=== PATIENT | female | born 1930 | race Caucasian/White ===

== ENCOUNTER 2017-05-09 14:27 | Outpatient (CLI) | payer MEDICARE | END 2017-05-09 14:28 | disposition home or self-care (01) | LOC: BICRAD 14:27 | PROVIDERS: ATTEND Internal Medicine | DX: R91.8 Other nonspecific abnormal finding of lung field (principal); I70.90 Unspecified atherosclerosis | CPT/HCPCS: 71046 ==

== ENCOUNTER 2017-08-14 10:51 | Outpatient (CLI) | payer MEDICARE ==
--- NOTE | 2017-08-14 13:45 | CT ---
CT ABDOMEN AND PELVIS WITH ORAL AND IV CONTRAST: HISTORY: Abdominal pain and bloating. Black stools. Diarrhea. FINDINGS: A gallstone is present. The liver, pancreas, spleen, adrenal glands, and right kidney are normal. A punctate calculus is seen in the left kidney. A tiny low density lesion in the inferior pole of the left kidney is too small to characterize but likely represents a cyst. No free air, free fluid, or lymphadenopathy is seen in the abdomen or pelvis. There are vascular calcifications without evidence of aneurysmal dilatation of the abdominal aorta. There are degenerative changes in the spine. There are postop changes of bilateral hip arthroplastie s, resulting in artifact and subsequent reduction in the sensitivity of the exam for evaluation of pe lvic contents. A uterus is present. The small bowel loops are not abnormally dilated. There is fec al material in the colon and rectum. There is an old fracture of the left inferior pubic ramus. IMPRESSION: 1. Punctate, nonobstructing left renal calculus. 2. Cholelithiasis. 3. Constipation. POS: [facility]
--- NOTE | 2017-08-14 14:13 | CT ---
HIGH RESOLUTION CT SCAN CHEST WITHOUT CONTRAST (SUPINE AND PRONE POSITIONS): HISTORY: Persistent cough. COPD. FINDINGS: There is mild scarring in apices and lung bases. There is elevation of the left hemidiaphragm. No b ullous emphysema, bronchiectasis, or fibrosis is seen. No pleural or pericardial effusions are ident ified. There are vascular calcifications without evidence of aneurysm dilatation of the abdominal ao rta. There are degenerative changes in the spine. Upper abdominal tomograms demonstrate a calcified gallstone. IMPRESSION: Mild scarring in the apices and lung bases. POS: [facility]
== END 2017-08-14 10:52 | disposition home or self-care (01) ==
LOC: SCSCT 10:51
PROVIDERS: ATTEND Internal Medicine
DX: J44.9 Chronic obstructive pulmonary disease, unspecified (principal); R05 Cough; Z87.891 Personal history of nicotine dependence; R10.9 Unspecified abdominal pain; R14.0 Abdominal distension (gaseous); R06.00 Dyspnea, unspecified; K92.1 Melena; K62.1 Rectal polyp; J98.4 Other disorders of lung; N20.0 Calculus of kidney; K80.20 Calculus of gallbladder without cholecystitis without obstruction; K59.00 Constipation, unspecified
CPT/HCPCS: 71250; 74177

== ENCOUNTER 2018-05-14 13:20 | Outpatient (CLI) | payer MEDICARE ==
[2018-05-14] MEDS ORDERED: Sodium Chloride 0.9% 15 ML NEB ONE (15:40)
--- NOTE | 2018-05-14 23:29 | HP ---
HISTORY OF PRESENT ILLNESS: Ms. Haydee Leroy is a very pleasant 88-year-old who presents to the [facility]ound Center for evaluation of 2 ulcerations of the right lateral ankle. The patient states that she hit her right lateral ankle against a box. She states that she appeared to have scraped her right lateral ankle and washed her ankle off. She states that she applied bacitracin to the injured areas. She states that her right lateral ankle became "worse and worse." She states that she was subsequently seen by Dr. Vaughan and placed on Keflex. At this time, the patient was also referred to the Wound Center for further evaluation and treatment. PAST MEDICAL HISTORY: 1. Peripheral vascular disease. 2. Obstructive sleep apnea. 3. History of MRSA. PAST SURGICAL HISTORY: 1. Cholecystectomy. 2. Hysterectomy. 3. Appendectomy. 4. Bilateral total knee arthroplasty. 5. Bilateral total hip arthroplasty with right hip arthroplasty revision. 6. Foot surgery. 7. Colon resection. 8. Closed reduction of dislocated right total hip arthroplasty. MEDICATIONS: The patient does not have a list of her medications with her today. She states that her medications, however, include oxybutynin, multivitamin, and eye vitamins. ALLERGIES: NEOSPORIN. SOCIAL HISTORY: Social history significant for tobacco use of up to one pack of cigarettes per day for 40 years. The patient states that she stopped smoking on 11/26/1986. Social history is negative for EtOH use. FAMILY HISTORY: Family history is significant for coronary artery disease. The patient states that her father was diagnosed with coronary artery disease. Family history is negative for diabetes mellitus. PHYSICAL EXAMINATION: VITAL SIGNS: Temperature 97.8, pulse 67, respirations 18, blood pressure 135/64. GENERAL: An 88-year-old female, sitting on chair in examination room, in no acute distress. HEENT: Normocephalic and atraumatic. NECK: No nuchal rigidity. CHEST: Clear to auscultation. CV: Regular rate and rhythm. ABDOMEN: Soft. EXTREMITIES: Two ulcerations of the right lateral ankle are present which measure approximately 1.5 x 0.8 cm and 0.8 x 1.4 cm. No granulation tissue is visible within the margins of either wound. No purulent drainage is associated with either wound. No maceration of the skin of either wound is present. Erythema of the skin surrounding both wounds is present and appears to be secondary to stasis changes as opposed to an infectious process. A dorsalis pedis pulse is palpable on the right. Mild to moderate edema of the right foot and lower leg is present on exam today. NEURO: Grossly nonfocal. ASSESSMENT AND PLAN: 1. Chronic venous hypertension with ulcers and inflammation. Medihoney, 4x4s, an ABD, Webril, and 3M Coban 2 Layer Compression System will be applied to the ulcerations today. Orders will be transmitted to Home Health for dressing changes 1 to 2 times a week of Medihoney, 4x4s, an ABD, Webril, and the 3M Coban 2 Layer Compression System. The patient is to continue Keflex as per Dr. Vaughan. I will see Ms. Leroy again in 2 weeks. The patient understands and is in agreement with the preceding treatment plan. 2. Peripheral vascular disease. 3. Obstructive sleep apnea. 4. History of methicillin-resistant Staphylococcus aureus. Job ID: [id number]
== END 2018-05-14 13:21 | disposition home or self-care (01) ==
LOC: WCC 13:20
PROVIDERS: ATTEND Family Medicine
DX: I87.331 Chronic venous hypertension (idiopathic) with ulcer and inflammation of right lower extremity (principal); L97.319 Non-pressure chronic ulcer of right ankle with unspecified severity; I73.9 Peripheral vascular disease, unspecified; G47.33 Obstructive sleep apnea (adult) (pediatric); Z86.14 Personal history of Methicillin resistant Staphylococcus aureus infection
CPT/HCPCS: 97139; 97602; G0463; 99203; A4218

== ENCOUNTER 2018-06-02 13:51 | Outpatient (CLI) | payer MEDICARE ==
[~2018-06-02 13:51] MED LIST: Sodium Chloride 0.9% 15 ML NEB ONE
--- NOTE | 2018-06-02 14:57 | PRG ---
DATE OF SERVICE: 06/02/2018 HISTORY: Ms. Haydee Leroy is a very pleasant 88-year-old, who presents to the Wound Center for evaluation of 2 ulcerations of the right lateral ankle. The patient previously stated that she hit her right lateral ankle against a box. She stated that she appeared to have scraped her right lateral ankle and washed her ankle off. She stated that she applied bacitracin to the injured areas. She stated that her right lateral ankle became "worse and worse." She stated that she was subsequently seen by Dr. Vaughan and placed on Keflex. At this time, the patient was also referred to the Wound Center for further evaluation and treatment. PHYSICAL EXAMINATION: VITAL SIGNS: Temperature 97.5, pulse 54, respirations 20, blood pressure 124/60. EXTREMITIES: Two ulcerations of the right lateral ankle are present, which measures approximately 0.8 x 0.5 cm and 1.0 x 0.5 cm. The dimensions of these wounds at the time of the patient's last visit were approximately 1.5 x 0.8 cm and 0.8 x 1.4 cm respectively. No granulation tissue is visible within the margins of either wound. A purulent drainage is associated with either wound. No maceration of the skin of the periwound of either wound is noted. Less erythema of the skin surrounding both wounds is present than at the time of the patient's last visit. A dorsalis pedis pulse is palpable on the right. No significant edema of the right foot or lower leg is present on exam today. ASSESSMENT AND PLAN: 1. Chronic venous hypertension with ulcers and inflammation. Medihoney, 4x4s, an ABD pad, Webril and the 3M Coban 2 Layer Compression System will be applied to the ulcerations today. Orders will be transmitted to Home Health for dressing changes 1 to 2 times per week of Medihoney, 4x4s, an ABD, Webril, and the 3M Coban 2 Layer Compression System. I will see Ms. Leroy again in 2 weeks. 2. Peripheral vascular disease. 3. Obstructive sleep apnea. 4. History of methicillin-resistant Staphylococcus aureus. Job ID: [id number]
== END 2018-06-02 13:52 | disposition home or self-care (01) ==
LOC: WCC 13:51
PROVIDERS: ATTEND Family Medicine
DX: I87.331 Chronic venous hypertension (idiopathic) with ulcer and inflammation of right lower extremity (principal); L97.319 Non-pressure chronic ulcer of right ankle with unspecified severity; I73.9 Peripheral vascular disease, unspecified; G47.33 Obstructive sleep apnea (adult) (pediatric); Z86.14 Personal history of Methicillin resistant Staphylococcus aureus infection
CPT/HCPCS: A4218

== ENCOUNTER 2018-06-16 15:51 | Outpatient (CLI) | payer MEDICARE ==
--- NOTE | 2018-06-16 14:07 | PRG ---
DATE OF SERVICE: 06/16/2018 HISTORY: Ms. Haydee Leroy is a very pleasant 88-year-old, who presents to the Wound Center for evaluation of two ulcerations at the right lateral ankle. The patient previously stated that she hit her right lateral ankle against a box. She stated that she appeared to have scraped her right lateral ankle and washed her ankle off. She stated that she applied bacitracin to the injured areas. She stated that her right lateral ankle became "worse and worse." She stated that she was subsequently seen by Dr. Vaughan and placed on Keflex. At this time, the patient was also referred to the Wound Center for further evaluation and treatment. PHYSICAL EXAMINATION: VITAL SIGNS: Temperature 98.0, pulse 58, respirations 16, blood pressure 131/72. EXTREMITIES: Two ulcerations of the right lateral ankle are present, which measure approximately 0.8 x 0.4 cm and 0.8 x 0.5 cm. The dimensions of these wounds at the time of the patient's last visit were approximately 0.8 x 0.5 cm and 1.0 x 0.5 cm respectively. No granulation tissue is visible within the margins of either wound. No purulent drainage is associated with either wound. No maceration of the skin of the periwound of either wound is noted. No significant edema of the right foot or lower leg is present on exam today. ASSESSMENT AND PLAN: 1. Chronic venous hypertension with ulcers and inflammation. Silverlon and the 3M Coban 2 Layer Compression System will be applied to the ulcerations today. Webril will also be utilized at the time of dressing changes as needed. Orders will be transmitted to Home Health for the preceding dressing changes 1 to 2 times per week. I will see Ms. Leroy again in 3 weeks. 2. Peripheral vascular disease. 3. Obstructive sleep apnea. 4. History of methicillin-resistant Staphylococcus aureus. Job ID: [id number]
[~2018-06-16 15:51] MED LIST changes: +Lidocaine 2% 11 ML SYR ONE
== END 2018-06-16 15:52 | disposition home or self-care (01) ==
LOC: WCC 15:51
PROVIDERS: ATTEND Family Medicine
DX: I87.331 Chronic venous hypertension (idiopathic) with ulcer and inflammation of right lower extremity (principal); L97.319 Non-pressure chronic ulcer of right ankle with unspecified severity; I73.9 Peripheral vascular disease, unspecified; G47.33 Obstructive sleep apnea (adult) (pediatric); Z86.14 Personal history of Methicillin resistant Staphylococcus aureus infection
CPT/HCPCS: A4218

== ENCOUNTER 2018-07-07 13:09 | Outpatient (CLI) | payer MEDICARE ==
--- NOTE | 2018-07-07 14:02 | PRG ---
DATE OF SERVICE: 07/07/2018 HISTORY: Ms. Haydee Leroy is a very pleasant 88-year-old, who presents to the Wound Center for evaluation of 2 ulcerations of the right lateral ankle. Previously, the patient stated that she hit her right lateral ankle against a box. She stated that she appeared to have scraped her right lateral ankle and washed her ankle off. She stated that she applied bacitracin to the injured areas. She stated that her right lateral ankle became "worse and worse." She stated that she was subsequently seen by Dr. Vaughan and placed on Keflex. At this time, the patient was also referred to the Wound Center for further evaluation and treatment. PHYSICAL EXAMINATION: VITAL SIGNS: Temperature 98.1, pulse 81, respirations 17, and blood pressure 140/66. EXTREMITIES: Two ulcerations of the right lateral ankle are present, which measure approximately 1.2 x 0.3 cm and 1.6 x 0.8 cm. Granulation tissue is now visible within the margins of both wounds. No purulent drainage is associated with either wound. No maceration of the skin of the periwound of either wound is noted. No significant edema of the right foot or lower leg is present on exam today. ASSESSMENT AND PLAN: 1. Chronic venous hypertension with ulcers and inflammation. Silverlon and the 3M Coban 2 Layer Compression System will be applied to the ulcerations today. Webril will also be utilized at the time of dressing changes as needed. Orders will be transmitted to Home Health for the preceding dressing changes 1 to 2 times per week. I will see Ms. Leroy again in 2 weeks. 2. Peripheral vascular disease. 3. Obstructive sleep apnea. 4. History of methicillin-resistant Staphylococcus aureus. Job ID: [id number]
[2018-07-07] MEDS ORDERED: Sodium Chloride 0.9% 15 ML NEB ONE (18:00)
[2018-07-07] MEDS ORDERED: Lidocaine 2% 11 ML SYR ONE (18:00)
== END 2018-07-07 13:10 | disposition home or self-care (01) ==
LOC: WCC 13:09
PROVIDERS: ATTEND Family Medicine
DX: I87.331 Chronic venous hypertension (idiopathic) with ulcer and inflammation of right lower extremity (principal); L97.319 Non-pressure chronic ulcer of right ankle with unspecified severity; I73.9 Peripheral vascular disease, unspecified; G47.33 Obstructive sleep apnea (adult) (pediatric); Z86.14 Personal history of Methicillin resistant Staphylococcus aureus infection
CPT/HCPCS: 29581; A4218

== ENCOUNTER 2018-07-23 13:45 | Outpatient (CLI) | payer MEDICARE ==
--- NOTE | 2018-07-23 14:21 | PRG ---
DATE OF SERVICE: 07/23/2018 HISTORY: Ms. Haydee Leroy is a very pleasant 88-year-old, who presents to the Wound Center for evaluation of 2 ulcerations of the right lateral ankle. Previously, the patient stated that she hit her right lateral ankle against a box. She stated that she appeared to have scraped her right lateral ankle and washed her ankle off. She stated that she applied bacitracin to the injured areas. She stated that her right lateral ankle became "worse and worse." She stated that she was subsequently seen by Dr. Vaughan and placed on Keflex. At this time, the patient was also referred to the Wound Center for further evaluation and treatment. PHYSICAL EXAMINATION: VITAL SIGNS: Temperature 97.5, pulse 77, blood pressure 132/65. EXTREMITIES: Two ulcerations of the right lateral ankle are present, which measure approximately 1.1 x 0.4 cm and 1.7 x 0.6 cm. Granulation tissue is visible within the margins of each wound. No purulent drainage is associated with either wound. No erythema of the skin surrounding either wound is present. No maceration of the skin of the periwound of either wound is noted. A dorsalis pedis pulse is easily palpable on the right. No significant edema of the right foot or lower leg is present on exam today. After copious irrigation of both wound beds with normal saline, MatriStem sheet was applied to the wound beds of both ulcerations, followed by Adaptic, an ABD and a 3M Coban 2 Layer Compression System. The MatriStem sheet was secured with the use of Steri-Strips and Mastisol. ASSESSMENT AND PLAN: 1. Chronic venous hypertension with ulcers and inflammation. Orders will be transmitted to Home Health for a dressing change of Adaptic, followed by an ABD and 3M Coban 2 Layer Compression System in 1 week. I will see Ms. Leroy again in 2 weeks. 2. Peripheral vascular disease. 3. Obstructive sleep apnea. 4. History of methicillin-resistant Staphylococcus aureus. Job ID: [id number]
[2018-07-23] MEDS ORDERED: Sodium Chloride 0.9% 15 ML NEB ONE (18:00)
== END 2018-07-23 13:46 | disposition home or self-care (01) ==
LOC: WCC 13:45
PROVIDERS: ATTEND Family Medicine
DX: I87.331 Chronic venous hypertension (idiopathic) with ulcer and inflammation of right lower extremity (principal); L97.319 Non-pressure chronic ulcer of right ankle with unspecified severity; I73.9 Peripheral vascular disease, unspecified; G47.33 Obstructive sleep apnea (adult) (pediatric)
CPT/HCPCS: A4218; Q4166-KX-JC

== ENCOUNTER 2018-08-05 19:51 | Observation (INO) | payer MEDICARE ==
[~2018-08-05 19:51] MED LIST changes: -Lidocaine 2% 11 ML SYR ONE; +Ondansetron PF 4 MG/2 ML Vial ONE; +PROPOFOL 200 MG/20 ML VIAL ONE; -Sodium Chloride 0.9% 15 ML NEB ONE; +Succinylcholine Chloride 20 MG/ML 10 ml SYRINGE FS ONE
[2018-08-05] MEDS ORDERED: Morphine 4 MG/ML VIAL ONE (20:30)
[2018-08-05] MEDS ORDERED: Ondansetron PF 4 MG/2 ML Vial ONE (20:38)
--- NOTE | 2018-08-05 21:07 | RAD ---
Exam: Right hip 2 views: HISTORY: Dislocation right total hip prosthesis. Findings and impression: There is cranial and posterior dislocation of the femoral head component from the acetabular componen t of the right hip prosthesis. No evidence for periprosthetic fracture.
[2018-08-05] MEDS ORDERED: traMADol HCl 50 MG TAB PO PRN ×2 (22:07)
[2018-08-05] MEDS ORDERED: Ondansetron PF 4 MG/2 ML Vial IV PRN (22:07)
[2018-08-05] MEDS ORDERED: Ketamine 50 MG/ML (10ML VIAL) ONE (22:47)
--- NOTE | 2018-08-05 23:28 | RAD ---
RIGHT HIP ONE VIEW: 08/05/18 HISTORY: Post reduction of previously noted right total hip prosthesis dislocation. COMPARISON: Earlier 08/05/18 study. Based on this single AP radiograph, the femoral head has been repositioned correctly with the acetabu lar portion of the prosthesis. IMPRESSION: Reduction of the previously noted hip prosthesis dislocation. No periprosthetic fracture. POS: [facility]
[2018-08-06 01:01] VITALS: BMI 28.7
[2018-08-06 08:47] LABS: #Eosinphils 0.8 thou/uL (0.0-0.7); #Lymphocytes 1.6 thou/uL (1.20-3.40); #Monocytes 0.9 thou/uL (0.11-0.59); #Neutrophils 5.5 thou/uL (1.40-6.50); %Basophils 0.2 % (0.0-1.0); %Eosinophils 8.9 % (0.0-10.0); %Lymphocytes 18.8 % (21.0-51.0); %Monocytes 9.9 % (0.0-10.0); %Neutrophils 62.2 % (42.0-75.0); Hemoglobin 12.9 g/dL (12.0-16.0); Mean Corpuscular HGB CONC 32.4 g/dL (32.0-36.0); Mean Corpuscular Hemoglobin 30.9 pg (27.0-31.0); Mean Corpuscular Volume 95.2 fL (78.0-98.0); Mean Platelet Volume 8.4 fL (7.4-10.4); Platelet Count 212 thou/uL (130-400); RBC Distribution Width 12.1 % (11.5-14.5); Red Blood Cell (RBC) Count 4.19 mill/uL (4.20-5.40); White Blood Cell (WBC) Count 8.8 thou/uL (4.8-10.8)
[2018-08-06 08:57] LABS: ALT (SGPT) 10 U/L (8-55); AST (SGOT) 22 U/L (5-34); Albumin 3.2 g/dL (3.4-4.8); Alkaline Phosphatase 99 U/L (40-150); Anion Gap 7 mmol/L (10-20); BUN (Urea Nitrogen) 13 mg/dL (9.8-20.1); Bilirubin, Total 0.5 mg/dL (0.2-1.2); Calc. Creatinine Clearance 58 mL/min (70-130); Carbon Dioxide 30 mmol/L (23-31); Chloride 109 mmol/L (98-107); Estimated GFR-MDRD 73; Globulin 2.5 g/dL (2.4-3.5); Glucose 90 mg/dL (83-110); Protein, Total 5.7 g/dL (6.0-8.3); Sodium 142 mmol/L (136-145)
[2018-08-06] MEDS ORDERED: Enoxaparin Sodium 40 MG/0.4 ML SYRINGE SC SCH (09:00)
[2018-08-06] MEDS ORDERED: Aspirin 81 mg Enteric Coated Tablet PO SCH (09:00)
--- NOTE | 2018-08-06 09:07 | CON ---
DATE OF CONSULTATION: 08/06/2018 CONSULTING PHYSICIAN: Osvaldo Narayanan MD REASON FOR CONSULTATION: Medical management. HISTORY OF PRESENT ILLNESS: An 88-year-old female with past medical history significant for bilateral hip replacement associated with prior right hip dislocation, who was brought into the hospital after acute onset of right hip pain. The patient reportedly bent over and felt the right hip popup and suddenly developed pain. Evaluation in the emergency room showed right hip dislocation. Orthopedic consult was obtained and the patient was taken to OR for closed reduction under anesthesia. The patient is feeling better and reports that pain is better controlled. Denied chest pain, nausea, vomiting, palpitations, shortness of breath, dysuria, hematuria, fever or chills, cough, or worsening leg swelling. She reported right ankle wound, for which she goes to the Wound Care for management. PAST MEDICAL HISTORY: Significant for, 1. Obstructive sleep apnea, on CPAP. 2. Colon tumor, status post resection. 3. Hyperlipidemia. 4. Coronary artery disease. 5. Heart murmur. 6. Anxiety and depression. PAST SURGICAL HISTORY: 1. Appendectomy. 2. Partial colon resection. 3. Tonsillectomy. 4. Left eye surgery. 5. Bilateral knee and hip replacement. 6. Prior right hip closed reduction. SOCIAL HISTORY: The patient lives alone. She is a former smoker. She quit about 10 years ago. FAMILY HISTORY: Noncontributory. ALLERGIES: BACITRACIN, NEOMYCIN, AND POLYMYXIN B. HOME MEDICATIONS: 1. Aspirin 81 mg p.o. daily. 2. Lipitor 40 mg p.o. daily at bedtime. 3. Clonazepam 1 mg p.o. daily at bedtime. 4. Melatonin 1 mg p.o. daily at bedtime. 5. Oxybutynin 5 mg p.o. daily. 6. PEG [id number]-Gpmujjyj eye drop 1 to 2 drops each eye q.i.d. 7. Sertraline 200 mg p.o. daily. REVIEW OF SYSTEMS: Twelve-point review of system performed was negative, other than pertinent positives and negatives included in the history of present illness. PHYSICAL EXAMINATION: VITAL SIGNS: Temperature 98.6, pulse 61, respiratory rate 20, SpO2 of 97 on 2 L nasal cannula, and blood pressure is 100/49. GENERAL: Healthy-looking elderly female, in no obvious distress. Afebrile. Anicteric. Acyanotic. HEENT: Normocephalic, atraumatic. Oral mucosa is moist. Pupils are reacting to light. NECK: Supple, nontender with full range of motion. No masses noticed. CARDIOVASCULAR: Regular rhythm and rate with normal heart sounds 1 and 2. 3/6 systolic murmur noted. RESPIRATORY: Good air entry bilaterally with no obvious crackle or rhonchi or use of accessory muscles. GASTROINTESTINAL: Full, soft, nondistended with normal bowel sounds. Right upper and lower quadrant tenderness noted. Bowel sound is normoactive. EXTREMITIES: Right ankle covered with dressing. Abductor pillow noticed between both legs. No other abnormality noted. No edema or erythema. SKIN: Patchy erythema and some papules noticed on the right side of trunk extending from below the breast down to the inguinal area as well as from mid back down to the flank on the right side. This area is also tender. There is no obvious vesicle noticed. NEUROLOGIC: Conscious and alert and oriented x3 with appropriate mental status. Cranial nerves II through XII are intact. The patient moves all extremities, but lower extremities are restrained. DIAGNOSTIC DATA: No labs are available yet. Chest x-ray of the right hip performed on August 05 showed cranial and posterior dislocation of the femoral head component from the acetabular component of the right hip prosthesis with no evidence of periprosthetic fracture. ASSESSMENT: 1. Dislocation of right prosthetic hip. 2. Right-sided trunk skin eruption: Concerning for shingles, given tenderness. 3. Right abdominal tenderness, right and lower quadrant: Etiology is unclear. The patient denied falling on that side. 4. History of hyperlipidemia, on Lipitor. 5. History of anxiety and depression, on Klonopin. 6. History of coronary artery disease: No chest pain. Asymptomatic at this time. PLAN: 1. We will get CBC and BMP. If liver enzymes are abnormal, we will also get right upper quadrant ultrasound. 2. We will monitor skin rash closely. 3. Analgesic as per Orthopedics. 4. DVT prophylaxis with Lovenox. 5. Diet as tolerated. 6. Activity and weightbearing as per Orthopedics. Many thanks for involving us in the care of this patient. We will follow along with you. Job ID: [id number]
[2018-08-06 12:28] VITALS: BP 108/59; TEMP 97.9
--- NOTE | 2018-08-07 15:28 | DIS ---
DATE OF ADMISSION: 08/05/2018 DATE OF DISCHARGE: 08/06/2018 PROCEDURE: The patient was brought to the OR, conscious sedation hip reduction. No complications after surgery. She was put in an abduction pillow upstairs and she did well. No other hospital complications. DISCHARGE CONDITION: Good/stable. DISPOSITION: Home. FOLLOWUP: Follow up would be in 2 to 4 weeks. We have asked her to follow up with Dr. Markham as this is her second hip dislocation in a few years for possible revision. She understands. DISCHARGE MEDICATIONS: Sent home with instructions. Job ID: [id number]
--- NOTE | 2018-08-07 15:28 | OP ---
DATE OF PROCEDURE: 08/05/2018 PREOPERATIVE DIAGNOSES: Right total hip arthroplasty, posterior dislocation, recurrent. POSTOPERATIVE DIAGNOSES: Right total hip arthroplasty, posterior dislocation, recurrent. PROCEDURE PERFORMED: Closed reduction of right total hip arthroplasty posterior dislocation. ANESTHESIA: General. BLOOD LOSS: Zero. COMPLICATIONS: None. DRAINS: None. SPECIMEN: None. IMPLANTS: None. OUTCOME: Concentric reduction of right total hip arthroplasty. INDICATIONS: The patient is an 88-year-old lady, who has a extensive past history with respect to her right hip including total hip arthroplasty followed by revision for infection and now a third posterior dislocation. She reports that earlier on the evening of admission, she bent over forward in a position that she knows places her risk and with this maneuver sustained a dislocation of the hip. The patient has had problems with conscious sedation in the past and as such, Orthopedic consultation requested for anticipated trip to the operating room to obtain a reduction. Informed consent has been obtained, I believe all questions answered. DESCRIPTION OF PROCEDURE: The patient was brought to the operating room and a time-out performed followed by induction of general anesthesia. Next, the hip was brought up to 90 degrees of flexion and then with traction along the line of the femur, the hip could eventually be reduced. This was a somewhat difficult reduction; however, once it was reduced. Leg lengths were normalized and the hip was found to be relatively stable with full extension and flexion up beyond 90 degrees. Once reduced, the leg was placed in an abduction pillow and the patient was brought to the recovery room in stable condition. There were no complications. She tolerated the procedure well. X-ray in the operating room confirmed a concentric reduction. Job ID: [id number]
== END 2018-08-06 13:16 | disposition home or self-care (01) ==
LOC: ERS 19:51 → SDC/OP 23:19 → SURG A 23:20
PROVIDERS: ADMIT Orthopaedic Surgery; ATTEND Orthopaedic Surgery
PROC: 0SW9XJZ Revision of Synthetic Substitute in Right Hip Joint, External Approach (ICD-10-PCS; principal; 2018-08-05)
DX: T84.020A Dislocation of internal right hip prosthesis, initial encounter (principal); G47.33 Obstructive sleep apnea (adult) (pediatric); E78.5 Hyperlipidemia, unspecified; I25.10 Atherosclerotic heart disease of native coronary artery without angina pectoris; F41.8 Other specified anxiety disorders; F32.9 Major depressive disorder, single episode, unspecified; R01.1 Cardiac murmur, unspecified; Z79.82 Long term (current) use of aspirin; Z79.899 Other long term (current) drug therapy; Z87.891 Personal history of nicotine dependence; Z88.1 Allergy status to other antibiotic agents; Z88.8 Allergy status to other drugs, medicaments and biological substances; Z99.89 Dependence on other enabling machines and devices
CPT/HCPCS: 27266; 73501; 73502; 80053; 85025; 96372; 96374; 96375; 97116; 97139 ×2; 99285; G0378 ×2; 36415; J1650; J2270; J2405; J2704

== ENCOUNTER 2018-08-11 10:41 | Outpatient (CLI) | payer MEDICARE ==
[2018-08-11] MEDS ORDERED: Sodium Chloride 0.9% 15 ML NEB ONE (14:57)
[2018-08-11] MEDS ORDERED: Lidocaine 2% Jelly 5 ML TUBE ONE (14:57)
--- NOTE | 2018-08-11 17:10 | PRG ---
DATE OF SERVICE: 08/11/2018 HISTORY: Ms. Haydee Leroy is a very pleasant 88-year-old, who presents to the Wound Center for evaluation of 2 ulcerations of the right lateral ankle. Since the patient's last visit, Ms. Leroy underwent closed reduction of a right total hip arthroplasty posterior dislocation on 08/05/[address] Narayanan. At the time of the patient's last visit to the Wound Center on 07/23/2018, MatriStem sheet was applied to the wound bed of each ulceration of the right lateral ankle. The patient reports an allergic reaction to the MatriStem sheet. The patient presents today with excoriations of her right and left upper extremities and right lower extremity. The patient has no other complaints today. She denies any fever or chills. PHYSICAL EXAMINATION: VITAL SIGNS: Temperature 97.9, pulse 59, respirations 15, and blood pressure 150/68. EXTREMITIES: Two ulcerations of the right lateral ankle are present, which measure approximately 0.8 x 0.2 cm and 0.8 x 1.6 cm. Granulation tissue is present within the margins of each wound. No purulent drainage is associated with either wound. No erythema of the skin surrounding either wound is present. No maceration of the skin of the periwound of either wound is noted. No significant edema of the right foot or lower leg is present on exam today. The ulcerations have markedly improved in their appearance since the patient's last visit. ASSESSMENT AND PLAN: 1. Chronic venous hypertension with ulcers and inflammation. Orders will be transmitted to Home Health for dressing changes of Medihoney and Mepilex border 3 times per week after cleansing and irrigation. The patient understands and is in agreement with the preceding treatment plan. I will see Ms. Leroy again in 2 weeks. 2. Peripheral vascular disease. 3. Obstructive sleep apnea. 4. History of methicillin-resistant Staphylococcus aureus. Job ID: [id number]
== END 2018-08-11 10:42 | disposition home or self-care (01) ==
LOC: WCC 10:41
PROVIDERS: ATTEND Family Medicine
DX: I87.331 Chronic venous hypertension (idiopathic) with ulcer and inflammation of right lower extremity (principal); L97.319 Non-pressure chronic ulcer of right ankle with unspecified severity; I73.9 Peripheral vascular disease, unspecified; G47.33 Obstructive sleep apnea (adult) (pediatric); Z86.14 Personal history of Methicillin resistant Staphylococcus aureus infection

== ENCOUNTER 2018-08-25 11:40 | Inpatient (IN) | payer MEDICARE ==
--- NOTE | 2018-08-25 12:22 | RAD ---
Right hip 2 views : 08/25/2018 COMPARISON: 08/05/2018 HISTORY: Pain, evaluate for dislocation FINDINGS: There is a total hip arthroplasty on the right. The femoral component is dislocated proxima lly and anteriorly with respect to the acetabular component. Post reduction imaging advised. IMPRESSION: Dislocated right hip arthroplasty.
[2018-08-25] MEDS ORDERED: Ondansetron PF 4 MG/2 ML Vial ONE (12:41)
[2018-08-25] MEDS ORDERED: Morphine 4 MG/ML VIAL ONE (12:41)
--- NOTE | 2018-08-25 13:35 | CON ---
DATE OF CONSULTATION: 08/25/2018 CONSULTING PHYSICIAN: Neil Cross MD REASON FOR CONSULTATION: Right hip dislocation. HISTORY OF PRESENT ILLNESS: This is an 88-year-old female, who lives independently, presented to our emergency department today with complaints of a right hip dislocation. The patient states that she was bending over when she felt the right hip pop and dislocate. She reports the last time she dislocated it was 3 weeks ago. According to our medical records, the patient has had 3 previous hip dislocations to this hip since last fall, last one being on August 05, 2018. These have required sedation in the operating room in order to reduce the hip secondary to the patient stating that she does not do well with conscious sedation and respiratory issues. Currently at bedside, the patient states that the original hip surgery was done many years ago in [place]. 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 It has been dislocating more frequently and easily in the last couple of months. She states that she is fearful to go home. It is popping out very easily at this time. She denies any numbness or tingling. She denies any other injuries. PAST MEDICAL HISTORY: Significant for coronary artery disease and hyperlipidemia. PAST SURGICAL HISTORY: Appendectomy, previous bilateral total knee arthroplasty, bilateral total hip arthroplasty with revision of right hip arthroplasty, and previous foot surgery. She also has a history of colon tumor resection. ALLERGIES: NO KNOWN ALLERGIES. FAMILY HISTORY: Reviewed and noncontributory. SOCIAL HISTORY: The patient states that she lives at home alone. She is an ambulator. She denies any tobacco use or alcohol consumption. REVIEW OF SYSTEMS: A 10-point review of systems is positive for right hip pain. No numbness or tingling. Otherwise negative except for stated above. PHYSICAL EXAMINATION: VITAL SIGNS: Temperature 97.9, blood pressure 139/57, pulse is 61, respiratory rate of 18 and nonlabored. GENERAL: The patient is awake and alert. She is tearful on examination, but she is cooperative with exam today. She is lying supine on a stretcher in the ER. No family currently at bedside. HEENT: Head is normocephalic and atraumatic. NECK: Supple. Trachea midline. LUNGS: Breathing nonlabored. EXTREMITIES: The lower extremities were evaluated. The right leg is shortened and externally rotated. She is holding this in a position of comfort. She is able to wiggle her toes. Sensation intact distally. Capillary refill is 3 seconds. All other extremities are evaluated and no obvious injuries are noted. RADIOGRAPHIC DATA: Radiographic findings, which were reviewed with Dr. Cross as well as myself, show evidence of a previous right total hip arthroplasty. The femoral head is dislocated posteriorly. No acute fractures are visualized. IMPRESSION: Dislocated right total hip. PLAN: At this time, we have previously discussed a revision total hip with this patient. However, we do need to go ahead and relocate her hip at this time and then we will further discuss the details of revising her total hip. She is amenable to this. We will plan to go forward with this in the operating room given her previous history of respiratory issues associated with conscious sedation. We will plan for this today. Job ID: [id number]
[2018-08-25] MEDS ORDERED: PROPOFOL 200 MG/20 ML VIAL ONE (13:37)
[2018-08-25] MEDS ORDERED: Succinylcholine Chloride 20 MG/ML 10 ml SYRINGE FS ONE (13:37)
[2018-08-25] MEDS ORDERED: Ketamine 50 MG/ML (10ML VIAL) ONE (15:28)
[2018-08-25] MEDS ORDERED: HYDROcodone/Acetaminophen 5/325 mg Tablet PO PRN (17:19)
[2018-08-25] MEDS ORDERED: Ondansetron PF 4 MG/2 ML Vial IV PRN (17:19)
[2018-08-25] MEDS ORDERED: Fentanyl 100 MCG/2 ML VIAL SLOW IVP PRN (17:19)
[2018-08-25] MEDS ORDERED: traMADol HCl 50 MG TAB PO PRN (17:19)
[2018-08-25] MEDS ORDERED: Ondansetron HCl/PF 4 MG/2 ML Vial IVP PRN (17:22)
[2018-08-25] MEDS ORDERED: Promethazine HCl 25 MG/ML VIAL SLOW IVP PRN (17:22)
[2018-08-25] MEDS ORDERED: Promethazine HCl 25 MG/ML VIAL IM PRN (17:22)
--- NOTE | 2018-08-25 17:25 | RAD ---
Right hip 2 views intraoperative fluoroscopy HISTORY: Hip dislocation. FINDINGS: Intraoperative fluoroscopy was provided for closed reduction is performed by Dr. Cross. Spot fluoroscopic images show the metallic femoral head prosthetic component to overlie the metallic acetabular component. Fluoroscopy time 11 seconds.
[2018-08-25] MEDS ORDERED: Communication Order-Pharmacy FS SCH (17:30)
[2018-08-25] MEDS: Atorvastatin Calcium 40 MG TAB PO SCH (20:54)
[2018-08-25] MEDS ORDERED: clonazePAM 1 MG TAB PO SCH (21:00)
--- NOTE | 2018-08-26 00:04 | OP ---
DATE OF PROCEDURE: 08/25/2018 OPERATION: Closed reduction of right total hip arthroplasty dislocation. PREOPERATIVE DIAGNOSIS: Dislocated right total hip arthroplasty. POSTOPERATIVE DIAGNOSIS: Dislocated right total hip arthroplasty. COMPLICATIONS: None. ESTIMATED BLOOD LOSS: None. SEWING MACHINE TESTER: Rigoberto Rivera PA-C. IMPLANTS: None. INDICATIONS: Ms. Leroy is an 88-year-old female, who has dislocated her hip multiple times. She has been indicated for closed reduction of the hip dislocation to relieve pain. She will need revision of her hip given that she has had multiple episodes of instability. She has elected to proceed with the operation and procedure. DESCRIPTION OF PROCEDURE: Ms. Leroy was identified in the preoperative holding area. She was carried to the operating room. She was positioned supine. General anesthesia was induced. A multidisciplinary time-out was performed. The right lower extremity was prepped and draped in sterile fashion. We began the procedure with given the patient's sedation. We then evaluated the hip with intraoperative x-ray. We were able to pull traction and reduce the hip dislocation using manual flexion and longitudinal traction. We confirmed this with x-ray. We took orthogonal views. The patient was awoken and taken to the recovery room in good condition without complication. Job ID: [id number]
[2018-08-26] MEDS: Ketorolac Tromethamine 30 MG/ML VIAL IVP SCH ×5 (00:26→19:42)
[2018-08-26 01:29] VITALS: BMI 26.8
[2018-08-26] MEDS: Sodium Chloride 0.9% 1,000 ML IV SCH ×3 (03:31→20:25)
[2018-08-26 08:41] LABS: #Eosinphils 0.3 thou/uL (0.0-0.7); #Lymphocytes 1.2 thou/uL (1.20-3.40); #Monocytes 0.8 thou/uL (0.11-0.59); #Neutrophils 6.3 thou/uL (1.40-6.50); %Basophils 0.3 % (0.0-1.0); %Eosinophils 3.4 % (0.0-10.0); %Lymphocytes 14.2 % (21.0-51.0); %Monocytes 8.9 % (0.0-10.0); %Neutrophils 73.2 % (42.0-75.0); Mean Corpuscular HGB CONC 31.6 g/dL (32.0-36.0); Mean Corpuscular Hemoglobin 30.5 pg (27.0-31.0); Mean Corpuscular Volume 96.6 fL (78.0-98.0); Platelet Count 234 thou/uL (130-400); RBC Distribution Width 12.7 % (11.5-14.5); Red Blood Cell (RBC) Count 3.91 mill/uL (4.20-5.40); White Blood Cell (WBC) Count 8.6 thou/uL (4.8-10.8)
[2018-08-26] MEDS: Oxybutynin 5 MG TAB PO SCH (08:51)
[2018-08-26 09:14] LABS: ALT (SGPT) 12 U/L (8-55); AST (SGOT) 21 U/L (5-34); Albumin 3.2 g/dL (3.4-4.8); Alkaline Phosphatase 104 U/L (40-150); Anion Gap 9 mmol/L (10-20); BUN (Urea Nitrogen) 19 mg/dL (9.8-20.1); Bilirubin, Total 0.6 mg/dL (0.2-1.2); Calc. Creatinine Clearance 56 mL/min (70-130); Calcium 9.1 mg/dL (7.8-10.44); Carbon Dioxide 27 mmol/L (23-31); Chloride 111 mmol/L (98-107); Estimated GFR-MDRD 70; Globulin 2.5 g/dL (2.4-3.5); Glucose 85 mg/dL (83-110); Potassium 4.3 mmol/L (3.5-5.1); Protein, Total 5.7 g/dL (6.0-8.3); Sodium 143 mmol/L (136-145)
[2018-08-26] MEDS ORDERED: Phenylephrine HCL 10 MG/ML VIAL ONE (12:36)
[2018-08-26] MEDS ORDERED: Lidocaine 2% Jelly 5 ML TUBE ONE (12:36)
[2018-08-26] MEDS ORDERED: Fentanyl 100 MCG/2 ML VIAL ONE ×4 (12:36→18:32)
[2018-08-26] MEDS ORDERED: Propofol 500 MG/50 ML VIAL ONE (12:44)
[2018-08-26] MEDS ORDERED: Bupivacaine 0.75% W/DEXTROSE 8.25% 2 ML AMP ONE (13:32)
[2018-08-26] MEDS ORDERED: Lidocaine 2% w/Epinephrine 1:200K 20 ML VIAL ONE (13:33)
[2018-08-26] MEDS ORDERED: Lidocaine 2% PF 5 ML VIAL ONE (13:34)
[2018-08-26] MEDS ORDERED: Vancomycin HCl 1 GM in Premix Bag 1 BAG IVPB SCH (14:00)
[2018-08-26] MEDS ORDERED: CEFAZOLIN 2 GM in Premix Bag 1 BAG IVPB SCH (14:00)
[2018-08-26] MEDS ORDERED: Ropivacaine 0.2% HCl/PF 20 ML ONE (15:09)
[2018-08-26] MEDS ORDERED: PHENYLEPHRINE-NS 100 MCG/ML 10 ML SYRINGE ONE ×2 (15:27→16:56)
[2018-08-26] MEDS ORDERED: ePHEDrine 50 MG/ML VIAL ONE (15:27)
[2018-08-26] MEDS ORDERED: PROPOFOL 200 MG/20 ML VIAL ONE (15:27)
[2018-08-26] MEDS ORDERED: Albumin 5% 0 ML ONE (15:34)
--- NOTE | 2018-08-26 16:05 | RAD ---
XR Pelvis AP STANDARD HISTORY: Intraoperative film for prosthesis placement. COMPARISON: None. FINDINGS: Bilateral hip prostheses are present on this examination. The distal end of the femoral com ponent of the right hip prosthesis is not visualized on this study. IMPRESSION: Bilateral hip prostheses.
[2018-08-26] MEDS ORDERED: Fentanyl 5 mcg/Bup 0.075% Cadd 100 ML EPIDURAL ONE (16:31)
--- NOTE | 2018-08-26 16:50 | RAD ---
Right hip 2 views HISTORY: Right hip placement. FINDINGS: Metallic hip prosthesis is in place. No perihardware lucency. Small amount of soft tissue g as remains. IMPRESSION: Right hip prosthesis is in good radiographic position.
[2018-08-26] MEDS ORDERED: Eucerin (Mineral Oil/Petrolatum,White) 30 gm Jar TOP PRN (19:23)
[2018-08-26] MEDS ORDERED: Naloxone HCl 0.4 mg/ml Vial IVP PRN ×2 (19:23)
[2018-08-26] MEDS ORDERED: diphenhydrAMINE 50 MG/ML VIAL IVP PRN (19:23)
[2018-08-26] MEDS ORDERED: Naloxone HCl 0.4 mg/ml Vial IV PRN (19:23)
[2018-08-26] MEDS ORDERED: Ondansetron PF 4 MG/2 ML Vial IVP PRN (19:23)
[2018-08-26] MEDS ORDERED: Communication Order-Pharmacy FS SCH (19:30)
[2018-08-26] MEDS: Atorvastatin Calcium 40 MG TAB PO SCH (20:21)
[2018-08-26] MEDS ORDERED: Albumin 25% 100 ML ONE (20:41)
[2018-08-26 21:14] LABS: Hemoglobin 9.4 g/dL (12.0-16.0)
[2018-08-26] MEDS ORDERED: Albumin 25% 25 GM/100 ML BOT IVPB ONE (21:30)
[2018-08-26] MEDS: CEFAZOLIN 2 GM in Premix Bag 1 BAG IVPB SCH (22:02)
--- NOTE | 2018-08-26 23:07 | OP ---
DATE OF PROCEDURE: 08/26/2018 PROCEDURE PERFORMED: Revision of right total hip arthroplasty. 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 COMPLICATIONS: None. ESTIMATED BLOOD LOSS: 350 mL. PLANTING MACHINE CREWMAN: Natalie Crowell PA-C. IMPLANTS: DonJoy size 60 mm multi-hole cup with 3 acetabular screws, 40 mm outer acetabular shell with a bipolar shell and a 28 mm Biomet metal head. INDICATIONS: Ms. Leroy is an 88-year-old female who has had recurrent dislocations of a total hip arthroplasty, which was placed approximately 10 years ago. She has had multiple problems with this. She also had a history of remote infection. She presented last night with the dislocation and was closed reduced. She has been indicated for revision of her total hip arthroplasty to prevent further dislocation and restore the ability to ambulate and mobilize without risk of instability. She elected to proceed. Risks to include infection, pain, scarring, bleeding, nerve or vascular injury, DVT, PE, medical complications such as ID, stroke, and others. DESCRIPTION OF PROCEDURE: Ms. Leroy is an 88-year-old female who was identified in the preoperative holding area. Her correct extremity was marked. She was carried to the operating room. She was positioned supine after epidural and spinal anesthetic was placed, she was then converted to the left lateral decubitus position. She was given intravenous antibiotics. At this point, we began with a posterior approach to the hip. We dissected down to the patient's previous scar. We dissected down to the underlying fascia which was opened. She had multiple layers of scar tissue and the layers were not well defined. We worked more deeply down to the bone level. We then performed a posterior approach to the proximal femur and identified the hip arthroplasty and implants. We removed significant scar tissue. There was also hematoma. We took a culture in the deep aspect of the fluid in the joint. At this point, we dislocated the hip and removed the femoral head. We impacted the femoral stem to be sure that it was not loose and it was well fixed. We then exposed the underlying acetabulum and removed the polyethylene component. We then removed two screws from the acetabular cup. Finally at this point, we used our acetabular cutting device to cut around the cup loosening the cup fully. This was then removed. At this point, we were able to gently ream the acetabulum. The patient had a 52 mm cup, she was reamed up to a size 58 mm, this gave a rim fit, her medial bone was very poor. We trialed with a 60 and this was acceptable. We impacted a 60 mm cup. We then placed 3 screws locking the cup in the acetabular bone. The screws had good purchase. Finally, we thoroughly irrigated with copious lavage. We then impacted our acetabular liner. We then trialed for bipolar component to form a tripolar construct. A +6 bipolar construct gave a good fit and stability. There was no evidence of instability with 90 degree flexion and full internal rotation. This was accepted. We removed the trial components and placed our final components, again we reduced the hip. We performed a final irrigation and then closure with #5 Ethibond suture followed by #2 Vicryl suture, followed by 2-0 Vicryl suture, and nylon sutures for the skin. A sterile dressing was applied. The patient was taken to the recovery room in good condition. Job ID: [id number]
[2018-08-27] MEDS: Sodium Chloride 0.9% 1,000 ML IV SCH ×4 (01:05→23:41)
[2018-08-27] MEDS: Vancomycin HCl 1 GM in Premix Bag 1 BAG IVPB SCH ×2 (01:08→13:45)
[2018-08-27] MEDS: Ketorolac Tromethamine 30 MG/ML VIAL IVP PRN ×3 (02:25→13:39)
[2018-08-27] MEDS ORDERED: Sodium Chloride 0.9% 500 ML IV SCH (04:15)
[2018-08-27] MEDS ORDERED: ePHEDrine/0.9% NaCl/PF SYRINGE 50 mg/10 ml ONE (04:21)
[2018-08-27] MEDS ORDERED: PHENYLEPHRINE-NS 100 MCG/ML 10 ML SYRINGE ONE (04:21)
[2018-08-27] MEDS ORDERED: Acetaminophen 1,000 MG in Premix Bag 1 BAG IVPB PRN (05:04)
[2018-08-27] MEDS ORDERED: DOPamine 400 MG/D5W 250 ML 250 ML IVPB SCH (05:30)
--- NOTE | 2018-08-27 06:26 | RAD ---
XR Chest 1 View Portable HISTORY: Shortness of breath COMPARISON: 12/26/2017 study. FINDINGS: Heart size within normal limits. There are atherosclerotic changes of the aorta. There is e levation to the right hemidiaphragm. There are chronic lung changes seen. IMPRESSION: Chronic lung change.
[2018-08-27] MEDS: CEFAZOLIN 2 GM in Premix Bag 1 BAG IVPB SCH ×2 (06:28→13:44)
--- NOTE | 2018-08-27 06:28 | PDOC.EVN ---
Event Note - Event Note Event Note: Called by residents for central line placement 2/2 hypotension. Patient s/p hip reduction and revision. Has not eaten or had anything to drink in some time. Hgb 12->9. No cough, congestion, fever, abd pain. Anesthesia has appeared to have been managing her overnight. No recently reported vasoactive agents. ON exam she is no longer hypotensive. She is very pleasant, conversant, and hard of hearing. RRR s M, no edema CTAB s w/r/r Abd NTTP Dressing on right hip POCUS: a limited exam to evaluate for vascular access sites was performed. Her RIJV is markedly collapsible, as well as her IVC. She has good contractile function of the heart on a limited subcostal view. Marked amount of gas on exam. Her CXR reviews no pneumonia. A/P: Hypotension, resolved -The patient has received 25 g albumin and 500 mL crystalloid. Due to her exam I would recommend another liter bolus and to monitor her closely. D/c the epidural pain pump, which could be contributing -CBC, UA Respiratory failure -was on the lower end of normal during admission, now on 3 L with good response -defer to the primary team concerning workup, including perioperative etiologies such as atelectasis, PE, ACS, CHF (which I feel less likely)
[2018-08-27] MEDS ORDERED: Lactated Ringer's 1,000 ML IV SCH (06:30)
[2018-08-27] MEDS ORDERED: traMADol HCl 50 MG TAB PO PRN ×3 (07:30→13:45)
[2018-08-27] MEDS ORDERED: Fentanyl 100 MCG/2 ML VIAL SLOW IVP PRN (07:30)
[2018-08-27] MEDS ORDERED: HYDROcodone/Acetaminophen 5/325 mg Tablet PO PRN (07:30)
[2018-08-27 07:38] LABS: #Eosinphils 0.4 thou/uL (0.0-0.7); #Monocytes 0.8 thou/uL (0.11-0.59); #Neutrophils 8.6 thou/uL (1.40-6.50); %Basophils 0.3 % (0.0-1.0); %Eosinophils 3.3 % (0.0-10.0); %Lymphocytes 9.2 % (21.0-51.0); %Monocytes 7.4 % (0.0-10.0); %Neutrophils 79.9 % (42.0-75.0); Hemoglobin 7.5 g/dL (12.0-16.0); Mean Corpuscular HGB CONC 32.1 g/dL (32.0-36.0); Mean Corpuscular Hemoglobin 31.6 pg (27.0-31.0); Mean Corpuscular Volume 98.5 fL (78.0-98.0); Mean Platelet Volume 8.2 fL (7.4-10.4); Platelet Count 143 thou/uL (130-400); RBC Distribution Width 12.6 % (11.5-14.5); Red Blood Cell (RBC) Count 2.37 mill/uL (4.20-5.40); White Blood Cell (WBC) Count 10.8 thou/uL (4.8-10.8)
--- NOTE | 2018-08-27 07:55 | CON ---
DATE OF CONSULTATION: 08/27/2018 CONSULTING PROVIDER: Betty Ordoñez CRNA - Anesthesiology. REASON FOR CONSULTATION: Hypotension, evaluation for central venous access. HISTORY OF PRESENT ILLNESS: Ms. Leroy is a pleasant 88-year-old female, who underwent surgical revision of her right hip prosthesis on 08/26/2018 due to recurrent dislocation. During the postoperative period, her blood pressure became progressively more hypotensive. However, she has only received 500 mL of isotonic crystalloid at this point. The patient was conversational and provided history and was conversational throughout examination. PAST MEDICAL HISTORY: 1. Coronary artery disease. 2. Hyperlipidemia. PAST SURGICAL HISTORY: 1. Appendectomy. 2. Bilateral total knee arthroplasty. 3. Bilateral total hip arthroplasty with revision of the right hip. 4. Foot surgery. 5. History of colon resection. ALLERGIES: NO KNOWN ALLERGIES. CURRENT MEDICATIONS: 1. Tylenol 1 g q.6 hours p.r.n. 2. Powderly 5/325 mg q.4 hours p.r.n. 3. Lipitor 40 mg daily. 4. Cefazolin 2 g q.8 hours for total of 3 doses. 5. Klonopin 1 mg at bedtime. 6. Benadryl 12.5 mg q.4 hours. 7. Fentanyl 50 mcg slow IV push every 30 minutes p.r.n. for breakthrough pain. 8. Toradol 15 mg IV push q.6 hours p.r.n. 9. Oxybutynin 5 mg daily. 10. Zofran 4 mg IV push q.6 hours p.r.n. 11. Zoloft 200 mg daily. 12. Tramadol 50 mg q.6 hours p.r.n. 13. Vancomycin 1 g q.12 hours for total of 2 doses. FAMILY HISTORY: Unremarkable. SOCIAL HISTORY: She states she lives at home and ambulates well at baseline. Denies tobacco or alcohol use. REVIEW OF SYSTEMS: A 12-point review of systems was performed. The patient's only complaint was right hip pain with movement. Otherwise, was negative. PHYSICAL EXAMINATION: VITAL SIGNS: Blood pressure 104/39, pulse 88, respiratory rate 20, pulse ox 98% on room air. GENERAL: No acute distress. The patient is alert, oriented x4 and is conversational throughout examination. She appears to be mentating well. CARDIOVASCULAR: Normal rate, regular rhythm without murmurs, rubs, or gallops. PULMONARY: Clear to auscultation bilaterally. ABDOMEN: Soft, nontender to palpation. EXTREMITIES: A bandage noted over left hip. SKIN: Warm, dry, and intact without lesions. NEUROLOGIC: No gross focal deficits. Moves all 4 limbs without difficulty. DIAGNOSTIC STUDIES: Point of care ultrasound, right internal jugular vein and left femoral vein were visualized using ultrasound for potential central line placement. Collapsing of the right IJ was noted with inspiration. Either side would be appropriate for central venous access if needed. PERTINENT LABORATORIES: Admission hemoglobin and hematocrit 12.0 and 37.8, repeat 9.4 and 29.1, otherwise unremarkable. Chest x-ray performed at 0400 on 08/27 with comparison on 12/26/2017 shows no obvious interval change. Microbiology, Gram stain from hip shows few white blood cells. Culture is pending at this time. ASSESSMENT AND PLAN: Ms. Leroy is an 88-year-old female, presented for revision of her left hip. She appears clinically volume depleted. Family Medicine team was consulted for central venous access given the fact that she appears clinically volume depleted. Hypotension. Given the fact the patient is still mentating well and has not received adequate fluid resuscitation, we will recommend bolusing 1 L of lactated Ringer solution and close monitoring in the ICU. If she remains hypotensive or her mentation changes, we will proceed with central venous access placement. We will also check a CBC to evaluate for any infection that may be occurring. Her hemoglobin had trended down from admission and if this trend continues, we will consider type and crossing and transfusing the patient if threshold of [address] Francisco was present for examination and performed the point of care ultrasound exam. Job ID: [id number]
[2018-08-27] MEDS ORDERED: Melatonin 3 MG TAB PO PRN (09:22)
[2018-08-27] MEDS: Oxybutynin 5 MG TAB PO SCH (11:55)
--- NOTE | 2018-08-27 12:59 | PDOC.PN ---
- Subjective Encounter Start Date: 08/27/18 Encounter Start Time: 10:30 -: old records requested/rev last night pt's BP was low and responded to IVF, her epidural is now off, he pain is controlled, her BP has been improved - Objective MAR Reviewed: Yes Vital Signs & Weight: Vital Signs (12 hours) Temp Pulse Pulse Pulse Pulse Resp BP 08/27/18 11:55 99.0 F 72 23 H 08/27/18 11:00 99.0 F 08/27/18 10:00 69 73 97/34 L 08/27/18 09:27 98.8 F 75 20 08/27/18 09:12 99.0 F 89 18 08/27/18 07:00 99.3 F 08/27/18 04:34 08/27/18 04:30 08/27/18 04:27 08/27/18 04:10 98.2 F 85 18 08/27/18 02:14 08/27/18 01:59 83 BP BP BP BP Pulse Ox Pulse Ox Pulse Ox 08/27/18 11:55 90/35 L 98 08/27/18 11:00 08/27/18 10:00 84/35 L 98 98 08/27/18 09:27 81/34 L 98 08/27/18 09:12 94/34 L 96 08/27/18 07:00 08/27/18 04:34 96/43 L 08/27/18 04:30 104/55 L 08/27/18 04:27 83/35 L 08/27/18 04:10 85/20 L 95 08/27/18 02:14 90/50 L 08/27/18 01:59 81/32 L Weight Weight 156 lb 4.8 oz Most Recent Monitor Data Heart Rate from ECG 70 NIBP 90/35 NIBP BP-Mean 53 Respiration from ECG 22 SpO2 100 I&O: 08/26/18 08/27/18 08/28/18 06:59 06:59 06:59 Intake Total 822 138 3241 Output Total 700 225 75 Balance -792 373 8201 Result Diagrams: 08/27/18 07:21 08/26/18 08:11 Radiology Reviewed by me: Yes (all radiology test reviewed) EKG Reviewed by me: Yes (nsr) Phys Exam - Physical Examination Constitutional: NAD HEENT: PERRLA, moist MMs, sclera anicteric Neck: no JVD, supple Respiratory: no wheezing, no rales, no rhonchi Cardiovascular: RRR, no significant murmur, no rub Gastrointestinal: soft, non-tender, no distention, positive bowel sounds Musculoskeletal: no edema, pulses present Neurological: non-focal, normal sensation Lymphatic: no nodes Psychiatric: normal affect, A&O x 3 Skin: no rash, normal turgor Dx/Plan (1) Anemia due to acute blood loss Code(s): D62 - ACUTE POSTHEMORRHAGIC ANEMIA Status: Acute (2) Hypotension Status: Acute (3) S/P closed reduction of dislocated total hip prosthesis Code(s): Z98.890 - OTHER SPECIFIED POSTPROCEDURAL STATES Status: Acute (4) CAD (coronary artery disease) Code(s): I25.10 - ATHSCL HEART DISEASE OF [place] CORONARY ARTERY W/O ANG PCTRS Status: Chronic (5) Dyslipidemia Code(s): E78.5 - HYPERLIPIDEMIA, UNSPECIFIED Status: Chronic (6) KEN on CPAP Code(s): G47.33 - OBSTRUCTIVE SLEEP APNEA (ADULT) (PEDIATRIC); Z99.89 - DEPENDENCE ON OTHER ENABLING MACHINES AND DEVICES Status: Chronic - Plan cont current plan of care, PT/OT, social research assistant * hypotension has resolved with IVF * today 1 unit of PRBC for low H & H * OK to transfer to surgical floor * continue post operative care as per surgeon * start PT/OT and discharge planning * medication reviewed as below * symptomatic treatment. * code status- full code * may need rehab placement on discharge Review of Systems - Review of Systems Constitutional: negative: fever, chills, sweats, weakness, malaise, other Eyes: negative: Pain, Vision Change, Conjunctivae Inflammation, Eyelid Inflammation, Redness, Other ENT: negative: Ear Pain, Ear Discharge, Nose Pain, Nose Discharge, Nose Congestion, Mouth Pain, Mouth Swelling, Throat Pain, Throat Swelling, Other Respiratory: negative: Cough, Dry, Shortness of Breath, Hemoptysis, SOB with Excertion, Pleuritic Pain, Sputum, Wheezing Cardiovascular: negative: chest pain, palpitations, orthopnea, paroxysmal nocturnal dyspnea, edema, light headedness, other Gastrointestinal: negative: Nausea, Vomiting, Abdominal Pain, Diarrhea, Constipation, Melena, Hematochezia, Other Genitourinary: negative: Dysuria, Frequency, Incontinence, Hematuria, Retention , Other Musculoskeletal: negative: Neck Pain, Shoulder Pain, Arm Pain, Back Pain, Hand Pain, Leg Pain, Foot Pain, Other Skin: negative: Rash, Lesions, [place], Bruising, Other - Medications/Allergies Allergies/Adverse Reactions: Allergies Allergy/AdvReac Type Severity Reaction Status Date / Time bacitracin Allergy Intermediate WELPS ON Verified 01/08/17 17:49 [From Neosporin SKIN ([id number])] neomycin Allergy Verified 05/21/16 22:52 [From Neosporin ([id number])] polymyxin B Allergy Verified 05/21/16 22:52 [From Neosporin ([id number])] Medications: Current Medications Hydrocodone Bitart/Acetaminophen ([place] 5/325) 1 tab PO Q4H PRN PRN Reason: Moderate Pain (4-6) Atorvastatin Calcium (Lipitor) 40 mg PO HS [facility] Last Admin: 08/26/18 20:21 Dose: 40 mg Clonazepam (Klonopin) 1 mg PO [facility] Diphenhydramine HCl (Benadryl) 12.5 mg IVP Q4H PRN PRN Reason: Severe Itching Fentanyl (Sublimaze) 50 mcg SLOW IVP Q30M PRN PRN Reason: Severe breakthrough pain Sodium Chloride (Normal Saline 0.9%) 1,000 mls @ 150 mls/hr IV .Q6H40M [facility] Last Admin: 08/27/18 08:53 Dose: 1,000 mls Cefazolin Sodium/Dextrose 2 gm (/ Device) 50 mls @ 100 mls/hr IVPB Q8HR [facility] Stop: 08/27/18 14:29 Last Admin: 08/27/18 06:28 Dose: 50 mls Vancomycin HCl 1 gm/ Device 200 mls @ 200 mls/hr IVPB 0100,1300 [facility] Stop: 08/27/18 13:59 Last Admin: 08/27/18 01:08 Dose: 200 mls Acetaminophen 1,000 mg/ Device 100 mls @ 400 mls/hr IVPB Q6H PRN PRN Reason: Fever/Mild Pain 1-3 Stop: 08/28/18 05:05 Last Admin: 08/27/18 12:03 Dose: 100 mls Dopamine HCl/Dextrose (Dopamine 400 Mg/D5w 250 Ml) 250 mls @ 0 mls/hr IVPB INF JIM; Protocol Ketorolac Tromethamine (Toradol) 15 mg IVP Q6H PRN PRN Reason: Pain Stop: 09/01/18 02:22 Last Admin: 08/27/18 07:55 Dose: 15 mg Melatonin (Melatonin) 1.5 mg PO HS PRN PRN Reason: Insomnia Mineral Oil/White Petrolatum (Eucerin Cream) 0 gm TOP PRN PRN PRN Reason: Itching Miscellaneous Information (Communication Order-Pharmacy) 1 each FS ONE [facility] Stop: 09/04/18 17:31 Naloxone HCl (Narcan) 0.1 mg IV Q15M PRN PRN Reason: Urinary retention Naloxone HCl (Narcan) 0.1 mg IVP ONE PRN PRN Reason: Severe Itching Stop: 08/27/18 19:24 Naloxone HCl (Narcan) 0.4 mg IVP NOW PRN PRN Reason: Opiate Reversal Stop: 08/27/18 19:24 Ondansetron HCl (Zofran) 4 mg IVP Q6H PRN PRN Reason: Nausea/Vomiting Oxybutynin Chloride (Ditropan) 5 mg PO DAILY [facility] Last Admin: 08/27/18 11:55 Dose: 5 mg Sertraline HCl (Zoloft) 200 mg PO DAILY [facility] Last Admin: 08/27/18 08:54 Dose: 200 mg Sodium Chloride (Flush - Normal Saline) 10 ml IVF PRN PRN PRN Reason: Saline Flush Tramadol HCl (Ultram) 50 mg PO Q6H PRN PRN Reason: Mild Pain (1-3)
[2018-08-27] MEDS ORDERED: HYDROcodone/Acetaminophen 10/325 mg Tablet PO PRN (13:46)
[2018-08-27] MEDS ORDERED: DOBUTamine 500 mg/250 ml 250 ML IVPB SCH (14:45)
[2018-08-27] MEDS: Ketorolac Tromethamine 30 MG/ML VIAL IVP SCH ×2 (17:19→23:41)
[2018-08-27] MEDS: clonazePAM 0.5 MG TAB PO SCH (19:41)
[2018-08-27] MEDS: Atorvastatin Calcium 40 MG TAB PO SCH (19:41)
[2018-08-28] MEDS: Ketorolac Tromethamine 30 MG/ML VIAL IVP SCH ×3 (08:55→18:04)
[2018-08-28] MEDS: Sodium Chloride 0.9% 1,000 ML IV SCH ×4 (09:04→22:52)
[2018-08-28] MEDS: Oxybutynin 5 MG TAB PO SCH (09:04)
--- NOTE | 2018-08-28 10:02 | CON ---
DATE OF CONSULTATION: 08/28/2018 SERVICE: Pulmonary Medicine. REASON FOR CONSULT: ICU patient. HISTORY OF PRESENT ILLNESS: The patient is an 88-year-old white female with past medical history significant for debility. 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 Ultimately, she underwent an elective procedure in order to have it repaired. She is postop day 1 from this procedure. Initially after the procedure, she had an epidural in place. Her blood pressures became quite marginal. The epidural was interrupted and her blood pressures firmed up. This happened on 3 separate occasions before the fentanyl epidural was ultimately removed. That being said, afterwards, her blood pressures failed to firm up. She got put on a little bit of dobutamine. We trended the hemoglobins through the night, which came down. She denies any current shortness of breath, chest discomfort, nausea, and vomiting. That being said, her mentation has been a little off, and she is also not making much in the way of urine. She has no complaints this morning. She can tell you where she is and what the situation is, but also makes goofy off the comments that clearly suggests that she is not quite fully oriented. PAST MEDICAL HISTORY: 1. Coronary artery disease. 2. Dyslipidemia. PAST SURGICAL HISTORY: 1. Appendectomy. 2. Total knee arthroplasty, bilateral. 3. Total hip arthroplasty, bilateral with recent revision to the right hip. 4. Foot surgery. 5. Partial colectomy. ALLERGIES: NO KNOWN DRUG ALLERGIES. MEDICATIONS: List of her inpatient medications was reviewed. Multiple updates were made. FAMILY HISTORY: Noncontributory. SOCIAL HISTORY: She is independent in her ADLs. She ambulates at baseline. She denies any alcohol, tobacco, or illicit drug use. She has no exposure to chemicals, dust, asbestos, or tuberculosis. REVIEW OF SYSTEMS: General; head, eyes, ears, nose, and throat; cardiovascular, respiratory, GI, , musculoskeletal, neurologic, and skin are negative, except as mentioned in the HPI. PHYSICAL EXAMINATION: VITAL SIGNS: Afebrile, pulse 75, blood pressure 124/46, respirations 23, saturation 100% on room air. GENERAL: The patient is awake and alert, in no apparent distress. LUNGS: Decent air entry without any prolonged expiratory phase or wheezing present. HEART: Normal rate and regular. ABDOMEN: Soft, nontender, nondistended. Bowel sounds are positive. MUSCULOSKELETAL: No cyanosis or clubbing. There is no pitting in the bilateral lower extremities. I do not appreciate any significant ecchymosis of the right hip. LABORATORY DATA: WBC 10.8, hemoglobin 7.5 and downtrending from 12.0, platelets 143,000. Basic metabolic profile is completely unremarkable. ASSESSMENT: 1. Acute blood loss anemia. 2. Hemorrhagic shock. 3. Metabolic encephalopathy. 4. Acute kidney injury, likely evolving. DISCUSSION AND PLAN: I will transfuse 1 unit of blood. We will wean away the dobutamine drip as tolerated. There is no evidence of where the blood loss is coming from. If she continues to trend down, CT of the pelvis and thigh will be performed. I will repeat hemoglobin at 11 a.m. this morning. At that point, we will also get an LDH, haptoglobin, and a peripheral smear. All anticoagulation will be interrupted. 70 minutes have been devoted to this patient in various activities. I personally reviewed all imaging studies and laboratory data noted within this document. For fifty percent of this time, I was interacting with the patient at the bedside or coordinating care with the care team. For the remainder of the time I was immediately available to the patient in the hospital unit. Job ID: [id number] MTDD
--- NOTE | 2018-08-28 10:33 | PDOC.PN ---
- Subjective Encounter Start Date: 08/28/18 Encounter Start Time: 10:20 -: old records requested/rev Patient seen and examined. No new complaints. No overnight events - Objective MAR Reviewed: Yes Vital Signs & Weight: Vital Signs (12 hours) Temp Pulse Resp BP Pulse Ox 08/28/18 10:05 98.1 F 64 22 H 108/44 L 100 08/28/18 08:33 98.2 F 73 23 H 114/60 95 08/28/18 08:07 98.3 F 72 18 96/44 L 98 08/28/18 08:00 97 08/28/18 07:00 98.6 F 08/28/18 03:51 100 08/28/18 03:00 98.5 F 08/28/18 02:00 98.3 F 08/27/18 23:48 100 08/27/18 23:00 98.4 F Weight Weight 156 lb 4.8 oz Most Recent Monitor Data Heart Rate from ECG 65 NIBP 108/44 NIBP BP-Mean 65 Respiration from ECG 20 SpO2 100 I&O: 08/27/18 08/28/18 08/29/18 06:59 06:59 06:59 Intake Total 502 5681.6 570 Output Total 225 725 125 Balance 277 4956.6 445 Result Diagrams: 08/27/18 07:21 08/26/18 08:11 EKG Reviewed by me: Yes Phys Exam - Physical Examination Constitutional: NAD HEENT: PERRLA, moist MMs, sclera anicteric Neck: no JVD, supple Respiratory: no wheezing, no rales, no rhonchi Cardiovascular: RRR, no significant murmur, no rub Gastrointestinal: soft, non-tender, no distention, positive bowel sounds Musculoskeletal: no edema, pulses present Neurological: non-focal, normal sensation Lymphatic: no nodes Psychiatric: normal affect, A&O x 3 Skin: no rash, normal turgor Dx/Plan (1) Anemia due to acute blood loss Code(s): D62 - ACUTE POSTHEMORRHAGIC ANEMIA Status: Acute (2) Hypotension Status: Acute (3) S/P closed reduction of dislocated total hip prosthesis Code(s): Z98.890 - OTHER SPECIFIED POSTPROCEDURAL STATES Status: Acute (4) CAD (coronary artery disease) Code(s): I25.10 - ATHSCL HEART DISEASE OF [place] CORONARY ARTERY W/O ANG PCTRS Status: Chronic (5) Dyslipidemia Code(s): E78.5 - HYPERLIPIDEMIA, UNSPECIFIED Status: Chronic (6) KEN on CPAP Code(s): G47.33 - OBSTRUCTIVE SLEEP APNEA (ADULT) (PEDIATRIC); Z99.89 - DEPENDENCE ON OTHER ENABLING MACHINES AND DEVICES Status: Chronic - Plan cont current plan of care, PT/OT, 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 Review of Systems - Review of Systems ENT: negative: Ear Pain, Ear Discharge, Nose Pain, Nose Discharge, Nose Congestion, Mouth Pain, Mouth Swelling, Throat Pain, Throat Swelling, Other Respiratory: negative: Cough, Dry, Shortness of Breath, Hemoptysis, SOB with Excertion, Pleuritic Pain, Sputum, Wheezing Cardiovascular: negative: chest pain, palpitations, orthopnea, paroxysmal nocturnal dyspnea, edema, light headedness, other Gastrointestinal: negative: Nausea, Vomiting, Abdominal Pain, Diarrhea, Constipation, Melena, Hematochezia, Other Genitourinary: negative: Dysuria, Frequency, Incontinence, Hematuria, Retention , Other Musculoskeletal: negative: Neck Pain, Shoulder Pain, Arm Pain, Back Pain, Hand Pain, Leg Pain, Foot Pain, Other - Medications/Allergies Allergies/Adverse Reactions: Allergies Allergy/AdvReac Type Severity Reaction Status Date / Time bacitracin Allergy Intermediate WELPS ON Verified 01/08/17 17:49 [From Neosporin SKIN ([id number])] neomycin Allergy Verified 05/21/16 22:52 [From Neosporin ([id number])] polymyxin B Allergy Verified 05/21/16 22:52 [From Neosporin ([id number])] Medications: Current Medications Hydrocodone Bitart/Acetaminophen ([place] 10/325) 1 tab PO Q4H PRN PRN Reason: Pain 1-4 Hydrocodone Bitart/Acetaminophen ([place] 10/325) 2 tab PO Q4H PRN PRN Reason: Pain 5-10 Atorvastatin Calcium (Lipitor) 40 mg PO HS JIM Last Admin: 08/27/18 19:41 Dose: 40 mg Clonazepam (Klonopin) 1 mg PO HS JIM Last Admin: 08/27/18 19:41 Dose: 1 mg Diphenhydramine HCl (Benadryl) 12.5 mg IVP Q4H PRN PRN Reason: Severe Itching Fentanyl (Sublimaze) 50 mcg SLOW IVP Q30M PRN PRN Reason: Severe breakthrough pain Sodium Chloride (Normal Saline 0.9%) 1,000 mls @ 150 mls/hr IV .Q6H40M [facility] Last Admin: 08/28/18 09:04 Dose: 1,000 mls Dopamine HCl/Dextrose (Dopamine 400 Mg/D5w 250 Ml) 250 mls @ 0 mls/hr IVPB INF [facility]; Protocol Dobutamine HCl/Dextrose (Dobutamine 500 Mg/250 Ml) 250 mls @ 0 mls/hr IVPB INF [facility] Last Admin: 08/27/18 15:04 Dose: 250 mls Ketorolac Tromethamine (Toradol) 15 mg IVP Q6HR [facility] Stop: 09/01/18 18:01 Last Admin: 08/28/18 08:55 Dose: 15 mg Melatonin (Melatonin) 1.5 mg PO HS PRN PRN Reason: Insomnia Mineral Oil/White Petrolatum (Eucerin Cream) 0 gm TOP PRN PRN PRN Reason: Itching Miscellaneous Information (Communication Order-Pharmacy) 1 each FS ONE [facility] Stop: 09/04/18 17:31 Naloxone HCl (Narcan) 0.1 mg IV Q15M PRN PRN Reason: Urinary retention Ondansetron HCl (Zofran) 4 mg IVP Q6H PRN PRN Reason: Nausea/Vomiting Last Admin: 08/27/18 15:19 Dose: 4 mg Oxybutynin Chloride (Ditropan) 5 mg PO DAILY [facility] Last Admin: 08/28/18 09:04 Dose: 5 mg Sertraline HCl (Zoloft) 200 mg PO DAILY [facility] Last Admin: 08/28/18 08:55 Dose: 200 mg Sodium Chloride (Flush - Normal Saline) 10 ml IVF PRN PRN PRN Reason: Saline Flush Tramadol HCl (Ultram) 50 mg PO Q6H PRN PRN Reason: Pain 1-4 Tramadol HCl (Ultram) 100 mg PO Q6H PRN PRN Reason: Pain 5-10
[2018-08-28 11:58] LABS: Hemoglobin 8.7 g/dL (12.0-16.0)
[2018-08-28 13:44] LABS: Anisocytosis SLIGHT = 6-15 cells (100X) (0-5/hpf); Band 5 % (5-11); Eosinophils 2 % (0-10); Hemoglobin 8.7 g/dL (12.0-16.0); Lymphocytes 7 % (21-51); MDiff Complete? YES; Mean Corpuscular Hemoglobin 30.7 pg (27.0-31.0); Mean Corpuscular Volume 93.2 fL (78.0-98.0); Mean Platelet Volume 8.9 fL (7.4-10.4); Monocytes 2 % (0-10); Neutrophil 84 % (42-75); Platelet Count 91 thou/uL (130-400); Platelet Morphology Comment Appears Decreased; RBC Distribution Width 14.9 % (11.5-14.5); Red Blood Cell (RBC) Count 2.84 mill/uL (4.20-5.40); White Blood Cell (WBC) Count 8.4 thou/uL (4.8-10.8)
[2018-08-28] MEDS: Atorvastatin Calcium 40 MG TAB PO SCH (20:06)
[2018-08-28] MEDS: clonazePAM 0.5 MG TAB PO SCH (20:06)
[2018-08-29] MEDS: Ketorolac Tromethamine 30 MG/ML VIAL IVP SCH ×5 (00:35→23:48)
[2018-08-29] MEDS: Sodium Chloride 0.9% 1,000 ML IV SCH ×3 (03:16→10:00)
[2018-08-29] MEDS: Oxybutynin 5 MG TAB PO SCH ×2 (08:35→10:22)
[2018-08-29 09:19] LABS: Hemoglobin 8.7 g/dL (12.0-16.0); Mean Corpuscular HGB CONC 33.2 g/dL (32.0-36.0); Mean Corpuscular Volume 93.4 fL (78.0-98.0); Mean Platelet Volume 8.9 fL (7.4-10.4); Platelet Count 112 thou/uL (130-400); RBC Distribution Width 14.6 % (11.5-14.5); Red Blood Cell (RBC) Count 2.79 mill/uL (4.20-5.40); White Blood Cell (WBC) Count 9.1 thou/uL (4.8-10.8)
--- NOTE | 2018-08-29 10:32 | PRG ---
DATE OF SERVICE: 08/29/2018 SERVICE: Pulmonary Medicine. INTERVAL HISTORY: The patient is doing really well from respiratory standpoint. She is breathing comfortably. Her mentation is much worse today. She is more confused and oriented only x1. She denies any current fevers, chills, nausea, vomiting. She indicates she is breathing comfortably. We are repeating hemoglobin this morning to see whether or not she had an appropriate response to the previous hemoglobin. PHYSICAL EXAMINATION: VITAL SIGNS: Afebrile. Pulse 69, blood pressure 135/61, respirations 19, saturation 98%, currently on 2 L nasal cannula. GENERAL: The patient is awake and alert, in no apparent distress. LUNGS: Decent air entry without any prolonged expiratory phase or wheezing. HEART: Normal rate and regular. ABDOMEN: Soft, nontender, nondistended. Bowel sounds are positive. MUSCULOSKELETAL: No cyanosis or clubbing. No pitting in the bilateral lower extremities. NEUROLOGIC: Grossly nonfocal. LABORATORY DATA: Hemoglobin 8.7. CBC is otherwise unremarkable. LDH peripherally was 241, just above the upper limits of normal. Hip cultures negative to date. No anaerobes were isolated. ASSESSMENT: 1. Acute blood loss anemia, stable. 2. Hemorrhagic shock, resolved. 3. Acute delirium. 4. Acute kidney injury. DISCUSSION AND PLAN: I will repeat a hemoglobin as well as basic metabolic profile and magnesium tomorrow morning. From my perspective, the patient is stable for transition out of the ICU to the surgical unit. Pulmonary/Critical Care will follow over the weekend, but if she remains stable, we will only see her intermittently. Job ID: [id number] MTDD
[2018-08-29 10:46] LABS: Band 4 % (5-11); Eosinophils 17 % (0-10); Lymphocytes 5 % (21-51); MDiff Complete? YES; Monocytes 10 % (0-10); Neutrophil 64 % (42-75); Platelet Morphology Comment Appears Decreased; RBC Morphology Normal
--- NOTE | 2018-08-29 11:06 | PDOC.PN ---
- Subjective Encounter Start Date: 08/29/18 Encounter Start Time: 10:20 -: old records requested/rev pt is off dobutamine drip, she is intermittently confused, her Hb stable - Objective MAR Reviewed: Yes Vital Signs & Weight: Vital Signs (12 hours) Temp Pulse Ox 08/29/18 08:00 100 08/29/18 07:00 97.8 F 08/29/18 04:00 97.9 F 08/29/18 00:00 97.9 F Weight Weight 185 lb 10.067 oz Most Recent Monitor Data Heart Rate from ECG 70 NIBP 141/57 NIBP BP-Mean 85 Respiration from ECG 22 SpO2 97 I&O: 08/28/18 08/29/18 08/30/18 06:59 06:59 06:59 Intake Total 5681.6 3758 200 Output Total 725 700 130 Balance 4956.6 3058 70 Result Diagrams: 08/29/18 09:03 08/26/18 08:11 Additional Labs: Accuchecks 08/29/18 08:29 POC Glucose 93 EKG Reviewed by me: Yes Phys Exam - Physical Examination Constitutional: NAD HEENT: PERRLA, moist MMs, sclera anicteric Neck: no JVD, supple Respiratory: no wheezing, no rales, no rhonchi Cardiovascular: RRR, no significant murmur, no rub Gastrointestinal: soft, non-tender, no distention, positive bowel sounds Musculoskeletal: no edema, pulses present Neurological: non-focal, moves all 4 limbs Lymphatic: no nodes Psychiatric: normal affect Skin: no rash, normal turgor Dx/Plan (1) Anemia due to acute blood loss Code(s): D62 - ACUTE POSTHEMORRHAGIC ANEMIA Status: Acute (2) Hypotension Status: Acute (3) S/P closed reduction of dislocated total hip prosthesis Code(s): Z98.890 - OTHER SPECIFIED POSTPROCEDURAL STATES Status: Acute (4) CAD (coronary artery disease) Code(s): I25.10 - ATHSCL HEART DISEASE OF [place] CORONARY ARTERY W/O ANG PCTRS Status: Chronic (5) Dyslipidemia Code(s): E78.5 - HYPERLIPIDEMIA, UNSPECIFIED Status: Chronic (6) KEN on CPAP Code(s): G47.33 - OBSTRUCTIVE SLEEP APNEA (ADULT) (PEDIATRIC); Z99.89 - DEPENDENCE ON OTHER ENABLING MACHINES AND DEVICES Status: Chronic - Plan cont current plan of care, 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 Review of Systems - Review of Systems ENT: negative: Ear Pain, Ear Discharge, Nose Pain, Nose Discharge, Nose Congestion, Mouth Pain, Mouth Swelling, Throat Pain, Throat Swelling, Other Respiratory: negative: Cough, Dry, Shortness of Breath, Hemoptysis, SOB with Excertion, Pleuritic Pain, Sputum, Wheezing Cardiovascular: negative: chest pain, palpitations, orthopnea, paroxysmal nocturnal dyspnea, edema, light headedness, other Gastrointestinal: negative: Nausea, Vomiting, Abdominal Pain, Diarrhea, Constipation, Melena, Hematochezia, Other Genitourinary: negative: Dysuria, Frequency, Incontinence, Hematuria, Retention , Other Musculoskeletal: negative: Neck Pain, Shoulder Pain, Arm Pain, Back Pain, Hand Pain, Leg Pain, Foot Pain, Other - Medications/Allergies Allergies/Adverse Reactions: Allergies Allergy/AdvReac Type Severity Reaction Status Date / Time bacitracin Allergy Intermediate WELPS ON Verified 01/08/17 17:49 [From Neosporin SKIN ([id number])] neomycin Allergy Verified 05/21/16 22:52 [From Neosporin ([id number])] polymyxin B Allergy Verified 05/21/16 22:52 [From Neosporin ([id number])] Medications: Current Medications Hydrocodone Bitart/Acetaminophen ([place] 10/325) 1 tab PO Q4H PRN PRN Reason: Pain 1-4 Hydrocodone Bitart/Acetaminophen ([place] 10/325) 2 tab PO Q4H PRN PRN Reason: Pain 5-10 Atorvastatin Calcium (Lipitor) 40 mg PO HS [facility] Last Admin: 08/28/18 20:06 Dose: 40 mg Sodium Chloride (Normal Saline 0.9%) 1,000 mls @ 50 mls/hr IV .Q20H JIM Ketorolac Tromethamine (Toradol) 15 mg IVP Q6HR [facility] Stop: 09/01/18 18:01 Last Admin: 08/29/18 05:40 Dose: 15 mg Melatonin (Melatonin) 1.5 mg PO HS PRN PRN Reason: Insomnia Miscellaneous Information (Communication Order-Pharmacy) 1 each FS ONE [facility] Stop: 09/04/18 17:31 Oxybutynin Chloride (Ditropan) 5 mg PO DAILY [facility] Last Admin: 08/29/18 10:22 Dose: 5 mg Sertraline HCl (Zoloft) 200 mg PO DAILY [facility] Last Admin: 08/29/18 10:22 Dose: 200 mg Sodium Chloride (Flush - Normal Saline) 10 ml IVF PRN PRN PRN Reason: Saline Flush Tramadol HCl (Ultram) 50 mg PO Q6H PRN PRN Reason: Pain 1-4 Tramadol HCl (Ultram) 100 mg PO Q6H PRN PRN Reason: Pain 5-10
[2018-08-29] MEDS ORDERED: diphenhydrAMINE 25 MG CAP PO SCH (15:30)
[2018-08-29] MEDS: Atorvastatin Calcium 40 MG TAB PO SCH (20:51)
[2018-08-29] MEDS ORDERED: diphenhydrAMINE 25 MG CAP PO PRN (21:00)
[2018-08-30 05:41] LABS: #Eosinphils 1.1 thou/uL (0.0-0.7); #Lymphocytes 0.5 thou/uL (1.20-3.40); #Monocytes 0.6 thou/uL (0.11-0.59); #Neutrophils 5.2 thou/uL (1.40-6.50); %Basophils 0.1 % (0.0-1.0); %Eosinophils 14.8 % (0.0-10.0); %Lymphocytes 6.8 % (21.0-51.0); %Monocytes 8.2 % (0.0-10.0); %Neutrophils 70.1 % (42.0-75.0); Mean Corpuscular HGB CONC 33.4 g/dL (32.0-36.0); Mean Corpuscular Volume 92.8 fL (78.0-98.0); Mean Platelet Volume 8.8 fL (7.4-10.4); Platelet Count 135 thou/uL (130-400); RBC Distribution Width 14.5 % (11.5-14.5); Red Blood Cell (RBC) Count 2.57 mill/uL (4.20-5.40); White Blood Cell (WBC) Count 7.4 thou/uL (4.8-10.8)
[2018-08-30 05:59] LABS: Anion Gap 7 mmol/L (10-20); BUN (Urea Nitrogen) 19 mg/dL (9.8-20.1); Calc. Creatinine Clearance 98 mL/min (70-130); Calcium 8.1 mg/dL (7.8-10.44); Carbon Dioxide 22 mmol/L (23-31); Chloride 116 mmol/L (98-107); Estimated GFR-MDRD Greater than 90; Glucose 92 mg/dL (83-110); Magnesium 1.7 mg/dL (1.6-2.6); Potassium 3.6 mmol/L (3.5-5.1); Sodium 141 mmol/L (136-145)
[2018-08-30 06:03] LABS: Phosphorus 1.7 mg/dL (2.3-4.7)
[2018-08-30] MEDS ORDERED: Potassium Phosphate 15 MMOL in Sodium Chloride 0.9% 250 ML 250 ML IVPB SCH (06:30)
[2018-08-30] MEDS ORDERED: Diabetic Tussin 200 MG/10 ML UDCUP PO PRN (06:30)
[2018-08-30] MEDS ORDERED: Artificial Tears 18 DROP/0.9 ML EA EYE PRN (06:30)
[2018-08-30] MEDS ORDERED: Eucerin (Mineral Oil/Petrolatum,White) 30 gm Jar TOP PRN (06:30)
[2018-08-30] MEDS ORDERED: Sodium Chloride 0.65% Nasal 44 ML BOT EA NARE PRN (06:30)
[2018-08-30] MEDS ORDERED: Ondansetron ODT 4 MG TAB SL PRN (06:30)
[2018-08-30] MEDS ORDERED: Cepastat Lozenges 1 LOZ PO PRN (06:30)
[2018-08-30] MEDS ORDERED: Senokot S 8.6-50 MG TAB PO PRN (06:30)
[2018-08-30] MEDS ORDERED: Calcium Carbonate 500 MG ChewTAB PO PRN (06:30)
[2018-08-30] MEDS ORDERED: Loperamide HCl 2 MG CAP PO PRN (06:30)
[2018-08-30] MEDS ORDERED: Bisacodyl 10 MG SUPP PR PRN (06:30)
[2018-08-30] MEDS ORDERED: hydrALAZINE 20 MG/ML VIAL SLOW IVP PRN (06:30)
[2018-08-30] MEDS: Ketorolac Tromethamine 30 MG/ML VIAL IVP SCH ×4 (06:31→23:37)
[2018-08-30] MEDS: Sodium Chloride 0.9% 1,000 ML IV SCH (06:32)
[2018-08-30] MEDS ORDERED: PHOS-NAK 1 PKT PACK PO SCH (06:45)
[2018-08-30] MEDS: Oxybutynin 5 MG TAB PO SCH (09:50)
--- NOTE | 2018-08-30 10:30 | PDOC.PN ---
- Subjective Encounter Start Date: 08/30/18 Encounter Start Time: 08:50 Patient seen and examined. this morning pt was wheezing, IVF discontinued, she is very weak, No overnight events - Objective MAR Reviewed: Yes Vital Signs & Weight: Vital Signs (12 hours) Temp Pulse Resp BP Pulse Ox 08/30/18 10:13 97 08/30/18 10:01 75 20 97 08/30/18 08:12 98.0 F 79 18 120/67 94 L 08/30/18 04:15 98.1 F 82 16 123/64 96 08/30/18 00:05 98.1 F 68 16 109/61 97 Weight Weight 185 lb 10.067 oz Most Recent Monitor Data Heart Rate from ECG 67 NIBP 167/64 NIBP BP-Mean 98 Respiration from ECG 28 SpO2 99 I&O: 08/29/18 08/30/18 08/31/18 06:59 06:59 06:59 Intake Total 3758 1448 958 Output Total 700 260 450 Balance 3058 1188 508 Result Diagrams: 08/30/18 04:36 08/30/18 04:36 Phys Exam - Physical Examination Constitutional: NAD HEENT: PERRLA, moist MMs, sclera anicteric Neck: no JVD, supple Respiratory: no rales, wheezing present Cardiovascular: RRR, no significant murmur, no rub Gastrointestinal: soft, non-tender, no distention, positive bowel sounds Musculoskeletal: no edema, pulses present Neurological: non-focal, normal sensation Lymphatic: no nodes Psychiatric: normal affect Skin: no rash, normal turgor Dx/Plan (1) Anemia due to acute blood loss Code(s): D62 - ACUTE POSTHEMORRHAGIC ANEMIA Status: Acute (2) Hypotension Status: Acute (3) S/P closed reduction of dislocated total hip prosthesis Code(s): Z98.890 - OTHER SPECIFIED POSTPROCEDURAL STATES Status: Acute (4) CAD (coronary artery disease) Code(s): I25.10 - ATHSCL HEART DISEASE OF [place] CORONARY ARTERY W/O ANG PCTRS Status: Chronic (5) Dyslipidemia Code(s): E78.5 - HYPERLIPIDEMIA, UNSPECIFIED Status: Chronic (6) KEN on CPAP Code(s): G47.33 - OBSTRUCTIVE SLEEP APNEA (ADULT) (PEDIATRIC); Z99.89 - DEPENDENCE ON OTHER ENABLING MACHINES AND DEVICES Status: Chronic (7) Hypophosphatemia Code(s): E83.39 - OTHER DISORDERS OF PHOSPHORUS METABOLISM Status: Acute - Plan cont current plan of care, PT/OT, neonatal social worker * replace potassium phosphate * give one dose of phosnac * DC IVF, concerned about fluid overload * if persistent wheezing, will try dose of lasix * medication reviewed as below * symptomatic treatment * await placement. * duoneb as needed Review of Systems - Review of Systems Constitutional: weakness. negative: fever, chills, sweats, malaise, other Respiratory: Wheezing. negative: Cough, Dry, Shortness of Breath, Hemoptysis, SOB with Excertion, Pleuritic Pain, Sputum Cardiovascular: negative: chest pain, palpitations, orthopnea, paroxysmal nocturnal dyspnea, edema, light headedness, other Gastrointestinal: negative: Nausea, Vomiting, Abdominal Pain, Diarrhea, Constipation, Melena, Hematochezia, Other Genitourinary: negative: Dysuria, Frequency, Incontinence, Hematuria, Retention , Other Musculoskeletal: negative: Neck Pain, Shoulder Pain, Arm Pain, Back Pain, Hand Pain, Leg Pain, Foot Pain, Other - Medications/Allergies Allergies/Adverse Reactions: Allergies Allergy/AdvReac Type Severity Reaction Status Date / Time bacitracin Allergy Intermediate WELPS ON Verified 01/08/17 17:49 [From Neosporin SKIN ([id number])] neomycin Allergy Verified 05/21/16 22:52 [From Neosporin ([id number]-qii-[id number])] polymyxin B Allergy Verified 05/21/16 22:52 [From Neosporin ([id number]-[id number])] Medications: Current Medications Hydrocodone Bitart/Acetaminophen ([place] [employer] 10/325) 1 tab PO Q4H PRN PRN Reason: Pain 1-4 Hydrocodone Bitart/Acetaminophen ([employer] 10/325) 2 tab PO Q4H PRN PRN Reason: Pain 5-10 Artificial Tears (Tears Naturale) 2 drop EA EYE PRN PRN PRN Reason: Dry Eyes Aspirin (Ecotrin) 81 mg PO BID JIM Atorvastatin Calcium (Lipitor) 40 mg PO HS JIM Last Admin: 08/29/18 20:51 Dose: 40 mg Bisacodyl (Dulcolax) 10 mg [place] DAILYPRN PRN PRN Reason: Constipation Calcium Carbonate (Tums) 1,000 mg PO Q4H PRN PRN Reason: Heartburn or Indigestion Diphenhydramine HCl (Benadryl) 25 mg PO Q6H PRN PRN Reason: Itching & Insomnia Guaifenesin (Robitussin Sf) 200 mg PO Q4H PRN PRN Reason: Cough Hydralazine HCl (Apresoline) 10 mg SLOW IVP Q4H PRN PRN Reason: SBP > 180 and HR < 70 Sodium Chloride (Normal Saline 0.9%) 1,000 mls @ 50 mls/hr IV .Q20H [facility] Last Admin: 08/30/18 06:32 Dose: Not Given Ketorolac Tromethamine (Toradol) 15 mg IVP Q6HR [facility] Stop: 09/01/18 18:01 Last Admin: 08/30/18 06:31 Dose: 15 mg Loperamide HCl (Imodium) 2 mg PO PRN PRN PRN Reason: Diarrhea/Loose Stools Melatonin (Melatonin) 1.5 mg PO HS PRN PRN Reason: Insomnia Mineral Oil/White Petrolatum (Eucerin Cream) 0 gm TOP BIDPRN PRN PRN Reason: Dry Skin Miscellaneous Information (Communication Order-Pharmacy) 1 each FS ONE [facility] Stop: 09/04/18 17:31 Ondansetron HCl (Zofran Odt) 4 mg SL Q6H PRN PRN Reason: Nausea/Vomiting Ondansetron HCl (Zofran) 4 mg IVP Q6H PRN PRN Reason: Nausea/Vomiting Oxybutynin Chloride (Ditropan) 5 mg PO DAILY [facility] Last Admin: 08/30/18 09:50 Dose: 5 mg Senna/Docusate Sodium (Senokot S) 2 tab PO BID PRN PRN Reason: Constipation Sertraline HCl (Zoloft) 200 mg PO DAILY [facility] Last Admin: 08/30/18 09:50 Dose: 200 mg Sodium Chloride (Flush - Normal Saline) 10 ml IVF PRN PRN PRN Reason: Saline Flush Sodium Chloride ([place] Nasal [place] 0.65%) 0 ml EA NARE QIDPRN PRN PRN Reason: Nasal Congestion Throat Lozenges (Cepastat Lozenges) 1 sheila PO Q2H PRN PRN Reason: Sore Throat Tramadol HCl (Ultram) 50 mg PO Q6H PRN PRN Reason: Pain 1-4 Tramadol HCl (Ultram) 100 mg PO Q6H PRN PRN Reason: Pain 5-10
[2018-08-30] MEDS: Ondansetron PF 4 MG/2 ML Vial IVP PRN (14:27)
--- NOTE | 2018-08-30 16:24 | PRG ---
DATE OF SERVICE: 08/30/2018 SUBJECTIVE: Ms. Leroy has no new complaints. Her hemoglobin is 8 g today, it was 8.7 yesterday,. She says she is feeling okay. OBJECTIVE: VITAL SIGNS: She is afebrile, heart rate 66, respiratory rate 16, oximetry is 97% on room air, and blood pressure 126/68. LUNGS: Clear. HEART: Regular rhythm. ABDOMEN: Soft. IMPRESSION: Blood loss anemia secondary to revision of a right hip arthroplasty. PLAN: She is clinically stable at this time. We will continue to follow. Job ID: [id number]
[2018-08-30] MEDS ORDERED: Furosemide 20 MG/2 ML VIAL SLOW IVP SCH (17:15)
[2018-08-30] MEDS: Atorvastatin Calcium 40 MG TAB PO SCH (20:12)
[2018-08-30] MEDS: Aspirin 81 mg Enteric Coated Tablet PO SCH (20:12)
[2018-08-30] MEDS: HYDROcodone/Acetaminophen 10/325 mg Tablet PO PRN (22:06)
[2018-08-31] MEDS: Ketorolac Tromethamine 30 MG/ML VIAL IVP SCH ×4 (06:33→23:50)
[2018-08-31 06:58] LABS: #Eosinphils 1.3 thou/uL (0.0-0.7); #Lymphocytes 0.6 thou/uL (1.20-3.40); #Monocytes 0.8 thou/uL (0.11-0.59); %Basophils 0.2 % (0.0-1.0); %Lymphocytes 7.7 % (21.0-51.0); %Monocytes 10.5 % (0.0-10.0); %Neutrophils 64.5 % (42.0-75.0); Hemoglobin 8.3 g/dL (12.0-16.0); Mean Corpuscular HGB CONC 32.9 g/dL (32.0-36.0); Mean Corpuscular Hemoglobin 31.3 pg (27.0-31.0); Mean Corpuscular Volume 95.1 fL (78.0-98.0); Mean Platelet Volume 8.3 fL (7.4-10.4); Platelet Count 161 thou/uL (130-400); RBC Distribution Width 14.5 % (11.5-14.5); Red Blood Cell (RBC) Count 2.66 mill/uL (4.20-5.40); White Blood Cell (WBC) Count 7.8 thou/uL (4.8-10.8)
[2018-08-31 07:20] LABS: Anion Gap 9 mmol/L (10-20); BUN (Urea Nitrogen) 17 mg/dL (9.8-20.1); Calc. Creatinine Clearance 94 mL/min (70-130); Calcium 8.2 mg/dL (7.8-10.44); Carbon Dioxide 21 mmol/L (23-31); Chloride 113 mmol/L (98-107); Estimated GFR-MDRD Greater than 90; Glucose 89 mg/dL (83-110); Magnesium 1.6 mg/dL (1.6-2.6); Potassium 3.7 mmol/L (3.5-5.1); Sodium 139 mmol/L (136-145)
[2018-08-31 07:24] LABS: Phosphorus 2.4 mg/dL (2.3-4.7)
[2018-08-31] MEDS: Aspirin 81 mg Enteric Coated Tablet PO SCH ×2 (08:43→19:59)
[2018-08-31] MEDS: Oxybutynin 5 MG TAB PO SCH (08:44)
--- NOTE | 2018-08-31 09:57 | PRG ---
DATE OF SERVICE: 08/31/2018 SUBJECTIVE: Haydee is an 88-year-old white female, who is now postop day 4 from her revision total hip arthroplasty secondary to instability. She is feeling much better today. LABORATORY DATA: Hemoglobin and hematocrit 8.3 and 25.3. OBJECTIVE: VITAL SIGNS: Her temperature 97.4, pulse 66, respiratory rate 15 nonlabored, O2 saturations 96% on 2 L nasal cannula, blood pressure 131/65. GENERAL: She is alert, oriented to person, place, time, situation. Grossly nonfocal. MUSCULOSKELETAL: Her version looks good. She has approximately 17 to 20 degrees of anteversion at the foot on the right. There is no shortening or gross internal rotation. Incisions clean . IMPRESSION: 1. An 88-year-old white female, postop day 4 right hip revision total hip arthroplasty secondary to instability. 2. Hemorrhagic anemia, asymptomatic. PLAN: Continue current care. Placement pending. Job ID: [id number]
--- NOTE | 2018-08-31 11:42 | PDOC.PN ---
- Subjective Encounter Start Date: 08/31/18 Encounter Start Time: 11:40 Subjective: nasal congestion - Objective MAR Reviewed: Yes Vital Signs & Weight: Vital Signs (12 hours) Temp Pulse Resp BP Pulse Ox 08/31/18 10:55 68 20 97 08/31/18 08:13 97.4 F L 66 15 131/65 96 08/31/18 03:48 97.6 F 61 16 107/64 96 08/30/18 23:42 97.9 F 60 18 124/69 95 Weight Weight 185 lb 10.067 oz Most Recent Monitor Data Heart Rate from ECG 67 NIBP 167/64 NIBP BP-Mean 98 Respiration from ECG 28 SpO2 99 I&O: 08/30/18 08/31/18 09/01/18 06:59 06:59 06:59 Intake Total 1448 2008 358 Output Total 120 985 4511 Balance 1188 1058 -892 Result Diagrams: 08/31/18 06:01 08/31/18 06:01 Phys Exam - Physical Examination HEENT: moist MMs Neck: no JVD Respiratory: clear to auscultation bilateral Cardiovascular: RRR, no significant murmur Gastrointestinal: soft, positive bowel sounds Musculoskeletal: no edema Dx/Plan (1) Anemia due to acute blood loss Code(s): D62 - ACUTE POSTHEMORRHAGIC ANEMIA Status: Acute (2) S/P closed reduction of dislocated total hip prosthesis Code(s): Z98.890 - OTHER SPECIFIED POSTPROCEDURAL STATES Status: Acute (3) Dyslipidemia Code(s): E78.5 - HYPERLIPIDEMIA, UNSPECIFIED Status: Chronic - Plan cont asa, statin -: PT/OT -: inhaled corticosteroid * .
[2018-08-31] MEDS: FlunisoLIDE 0.025% Nasal Spray 25 ml Bottle EA NARE SCH (19:59)
[2018-08-31] MEDS: Atorvastatin Calcium 40 MG TAB PO SCH (19:59)
[2018-08-31] MEDS: HYDROcodone/Acetaminophen 10/325 mg Tablet PO PRN (20:19)
[2018-09-01 05:24] LABS: #Eosinphils 1.4 thou/uL (0.0-0.7); #Lymphocytes 0.8 thou/uL (1.20-3.40); #Monocytes 0.8 thou/uL (0.11-0.59); %Eosinophils 15.7 % (0.0-10.0); %Lymphocytes 8.8 % (21.0-51.0); %Neutrophils 66.4 % (42.0-75.0); Hemoglobin 8.1 g/dL (12.0-16.0); Mean Corpuscular HGB CONC 33.2 g/dL (32.0-36.0); Mean Corpuscular Hemoglobin 31.2 pg (27.0-31.0); Mean Corpuscular Volume 93.9 fL (78.0-98.0); Mean Platelet Volume 8.3 fL (7.4-10.4); Platelet Count 187 thou/uL (130-400); RBC Distribution Width 14.7 % (11.5-14.5)
[2018-09-01 05:42] LABS: Anion Gap 10 mmol/L (10-20); BUN (Urea Nitrogen) 20 mg/dL (9.8-20.1); Calc. Creatinine Clearance 94 mL/min (70-130); Calcium 8.3 mg/dL (7.8-10.44); Carbon Dioxide 24 mmol/L (23-31); Chloride 111 mmol/L (98-107); Estimated GFR-MDRD Greater than 90; Glucose 100 mg/dL (83-110); Magnesium 1.6 mg/dL (1.6-2.6); Potassium 3.8 mmol/L (3.5-5.1); Sodium 141 mmol/L (136-145)
[2018-09-01] MEDS: Ketorolac Tromethamine 30 MG/ML VIAL IVP SCH (06:00)
[2018-09-01] MEDS: Oxybutynin 5 MG TAB PO SCH (08:27)
[2018-09-01] MEDS: Aspirin 81 mg Enteric Coated Tablet PO SCH (08:29)
[2018-09-01] MEDS: FlunisoLIDE 0.025% Nasal Spray 25 ml Bottle EA NARE SCH (08:35)
--- NOTE | 2018-09-01 08:54 | PDOC.PN ---
- Subjective Encounter Start Date: 09/01/18 Encounter Start Time: 13:30 Subjective: Patient with pain in hip with any movement. A bit weak all over. -: No other complaints. - Objective MAR Reviewed: Yes Vital Signs & Weight: Vital Signs (12 hours) Temp Pulse Resp BP Pulse Ox 09/01/18 07:27 98.0 F 68 16 136/72 93 L 09/01/18 07:16 94 L 09/01/18 04:00 97.9 F 66 18 122/70 94 L 08/31/18 23:55 97.9 F 69 17 122/56 L 95 Weight Weight 185 lb 10.067 oz Most Recent Monitor Data Heart Rate from ECG 67 NIBP 167/64 NIBP BP-Mean 98 Respiration from ECG 28 SpO2 99 I&O: 08/31/18 09/01/18 09/02/18 06:59 06:59 06:59 Intake Total 20073 480 Output Total 1550 1300 Balance 7677 -287 -697 Result Diagrams: 09/01/18 04:13 09/01/18 04:13 Phys Exam - Physical Examination Constitutional: NAD HEENT: moist MMs Respiratory: no wheezing, no rales, no rhonchi Cardiovascular: RRR Gastrointestinal: soft, positive bowel sounds Neurological: non-focal Psychiatric: normal affect, A&O x 3 Dx/Plan (1) Anemia due to acute blood loss Code(s): D62 - ACUTE POSTHEMORRHAGIC ANEMIA Status: Acute Comment: stable after transfusion (2) S/P closed reduction of dislocated total hip prosthesis Code(s): Z98.890 - OTHER SPECIFIED POSTPROCEDURAL STATES Status: Acute (3) CAD (coronary artery disease) Code(s): I25.10 - ATHSCL HEART DISEASE OF [place] CORONARY ARTERY W/O ANG PCTRS Status: Chronic (4) Dyslipidemia Code(s): E78.5 - HYPERLIPIDEMIA, UNSPECIFIED Status: Chronic (5) KEN on CPAP Code(s): G47.33 - OBSTRUCTIVE SLEEP APNEA (ADULT) (PEDIATRIC); Z99.89 - DEPENDENCE ON OTHER ENABLING MACHINES AND DEVICES Status: Chronic - Plan cont current plan of care, PT/OT placement per primary team- will need rehab * . - Discharge Day Encounter end time: 13:40
[2018-09-01] MEDS: Ondansetron PF 4 MG/2 ML Vial IVP PRN (09:25)
--- NOTE | 2018-09-01 10:50 | PRG ---
DATE OF SERVICE: 09/01/2018 SERVICE: Pulmonary Medicine. INTERVAL HISTORY: The patient is doing outstanding from respiratory standpoint. She is pleasantly confused. Denies any current shortness of breath or chest discomfort. She really does not know where she is or what the situation is presently. PHYSICAL EXAMINATION: VITAL SIGNS: Afebrile, pulse 68, blood pressure 136/72, respirations 16, and saturation 93% on room air. GENERAL: The patient is awake and alert, in no apparent distress. LUNGS: Decent air entry. There is no prolonged expiratory phase. No crackles or wheezing appreciated. HEART: Normal rate and regular. ABDOMEN: Soft, nontender, and nondistended. Bowel sounds are positive. MUSCULOSKELETAL: No cyanosis or clubbing. No pitting in the bilateral lower extremities. NEUROLOGIC: Grossly nonfocal. LABORATORY DATA: WBC 9.0, hemoglobin is stable at 8.1, platelets 187,000. Basic metabolic profile is unremarkable. Magnesium 1.6 and phosphorus 3.0. Cultures are negative to date. ASSESSMENT: 1. Acute blood loss anemia, stable. 2. Hemorrhagic shock, resolved. 3. Acute delirium superimposed on top of advanced dementia. 4. Acute kidney injury, resolved. DISCUSSION AND PLAN: The patient is doing fine from respiratory standpoint. At this point, she is stable for transition out of the hospital from a purely respiratory standpoint. She has no further requirements for Pulmonary or Critical Care opinion, and I will sign off. Please call with additional questions or concerns through time. Job ID: [id number]
[2018-09-01 15:20] VITALS: BP 100/46; TEMP 98
== END 2018-09-01 17:56 | DRG 466 ==
LOC: ERS 11:40 → SDC 13:37 → ERS 13:47 → SURG B 19:25 → SDC 08-27 05:42 → SURG B 08-27 05:42 → CCU 08-27 05:56 → SJJU 08-29 17:00
PROVIDERS: ADMIT Orthopaedic Surgery; ATTEND Orthopaedic Surgery
PROC: 0SR90JZ Replacement of Right Hip Joint with Synthetic Substitute, Open Approach (ICD-10-PCS; principal; 2018-08-27)
PROC: 0SP90JZ Removal of Synthetic Substitute from Right Hip Joint, Open Approach (ICD-10-PCS; 2018-08-27)
PROC: 30233N1 Transfusion of Nonautologous Red Blood Cells into Peripheral Vein, Percutaneous Approach (ICD-10-PCS; 2018-08-27)
DX: T84.020A Dislocation of internal right hip prosthesis, initial encounter (principal); T81.19XA Other postprocedural shock, initial encounter; J96.90 Respiratory failure, unspecified, unspecified whether with hypoxia or hypercapnia; D62 Acute posthemorrhagic anemia; N17.9 Acute kidney failure, unspecified; F05 Delirium due to known physiological condition; I25.10 Atherosclerotic heart disease of native coronary artery without angina pectoris; E78.5 Hyperlipidemia, unspecified; E83.39 Other disorders of phosphorus metabolism; G47.33 Obstructive sleep apnea (adult) (pediatric); Z88.8 Allergy status to other drugs, medicaments and biological substances; Z90.49 Acquired absence of other specified parts of digestive tract; Z79.899 Other long term (current) drug therapy; Z88.1 Allergy status to other antibiotic agents; Y83.1 Surgical operation with implant of artificial internal device as the cause of abnormal reaction of the patient, or of later complication, without mention of misadventure at the time of the procedure
CPT/HCPCS: 36415; 36416; 36430; 71045; 72170; 76000; 80048; 80053; 83010; 83615; 83735; 84100; 85007; 85025; 85027; 85060; 86850; 86900; 86901; 87070; 87205; 94640; 96374; 96375; C1713; J0131; J0690; J1250; J1885; J1940; J2001; J2270; J2370; J2405; J2704; J2795; J3010; J3370; J3490; J7050; J7620; P9016; P9045; P9047; Q0162; Q0163

== ENCOUNTER 2018-09-06 10:06 | Inpatient (IN) | payer MEDICARE ==
[2018-09-06 10:59] LABS: #Basophils 0.1 thou/uL (0.0-0.2); #Eosinphils 0.7 thou/uL (0.0-0.7); #Lymphocytes 0.8 thou/uL (1.20-3.40); #Monocytes 0.7 thou/uL (0.11-0.59); %Basophils 0.5 % (0.0-1.0); %Eosinophils 5.5 % (0.0-10.0); %Lymphocytes 6.8 % (21.0-51.0); %Neutrophils 81.2 % (42.0-75.0); Hemoglobin 6.1 g/dL (12.0-16.0); Mean Corpuscular HGB CONC 32.1 g/dL (32.0-36.0); Mean Corpuscular Hemoglobin 31.3 pg (27.0-31.0); Mean Corpuscular Volume 97.5 fL (78.0-98.0); Mean Platelet Volume 7.1 fL (7.4-10.4); Platelet Count 329 thou/uL (130-400); RBC Distribution Width 16.6 % (11.5-14.5); Red Blood Cell (RBC) Count 1.94 mill/uL (4.20-5.40); White Blood Cell (WBC) Count 12.3 thou/uL (4.8-10.8)
[2018-09-06 11:16] LABS: INR-International Normal Ratio 1.5; PTT 40.6 SEC (22.9-36.1); Prothrombin Time 18.4 SEC (12.0-14.7)
[2018-09-06 11:22] LABS: ALT (SGPT) 8 U/L (8-55); AST (SGOT) 22 U/L (5-34); Albumin 2.2 g/dL (3.4-4.8); Alkaline Phosphatase 85 U/L (40-150); Anion Gap 10 mmol/L (10-20); BUN (Urea Nitrogen) 13 mg/dL (9.8-20.1); Bilirubin, Total 1.2 mg/dL (0.2-1.2); Calc. Creatinine Clearance 0 mL/min (70-130); Carbon Dioxide 30 mmol/L (23-31); Chloride 103 mmol/L (98-107); Estimated GFR-MDRD 85; Glucose 102 mg/dL (83-110); Iron 38 ug/dL (50-170); Iron Binding Capacity, Total 140 mcg/dL (265-497); Potassium 4.3 mmol/L (3.5-5.1); Protein, Total 4.2 g/dL (6.0-8.3); Sodium 139 mmol/L (136-145)
[2018-09-06] MEDS ORDERED: Sodium Chloride 0.9% (PF) 10 ML VIAL FS PRN (12:52)
[2018-09-06] MEDS ORDERED: Pantoprazole 40 MG VIAL IVP SCH (13:00)
[2018-09-06 14:20] LABS: Hemoglobin 6.2 g/dL (12.0-16.0)
--- NOTE | 2018-09-06 14:28 | HP ---
CHIEF COMPLAINT: Hematemesis. 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 Cross. Subsequently, the patient developed blood loss anemia and hypotension and required a short stay in the ICU for a couple of days. Once her blood pressure stabilized and hemoglobin was more stable, she was discharged out to the medical floor. She subsequently did well, but had some generalized weakness and fatigue and was sent to inpatient rehab facility. There, apparently, shortly after arrival, the patient developed an episode of atrial fibrillation with rapid ventricular response. She received a dose of digoxin and had conversion back to sinus rhythm. However, she was started on Eliquis, which she took for 3 to 4 days. This morning, the patient had an episode of emesis. The patient says she did not actually see it, and that was not shown to her, but it was reported that it was bright red blood. Subsequent vitals revealed a blood pressure of 80/42, and the patient was then transferred to the emergency department. In the emergency department, the patient's blood pressure was again 80s/50s. She subsequently received boluses of IV fluids, and her blood pressure has responded appropriately. It looks like she had a total of 500 mL bolus and her most recent blood pressure is 115 systolic. The patient herself denies any abdominal pain. She has not had a bowel movement in 2 days that she has not been eating or drinking a great deal at the rehab center either. REVIEW OF SYSTEMS: Primarily noted for generalized and what she describes fairly profound fatigue and listlessness. The patient also has some very mild lower extremity edema which is chronic. All other systems reviewed. All pertinent positives and negatives noted in the history of present illness. PAST MEDICAL HISTORY: Notable for coronary artery disease, hyperlipidemia, and the above-mentioned postoperative blood loss with anemia and related hypotension. Of note, the patient's hemoglobin at the time of her surgery started at around 12, got as low as 7.5, most recent was 8.8 prior to today. PAST SURGICAL HISTORY: Appendectomy, bilateral total knee arthroplasty, bilateral total hip arthroplasty, revision of the right hip arthroplasty on 08/26/2018, prior foot surgery, and prior colon resection for tumor. FAMILY HISTORY: Reviewed, noncontributory to current admission. SOCIAL HISTORY: The patient is a nonsmoker, nondrinker, and nondrug user. She prior to her hip surgery was living independently and ambulating reasonably well. She is full code, and her son Nagi is her surrogate decision maker should that become necessary. ALLERGIES: BACITRACIN, NEOMYCIN, POLYMYXIN B. CURRENT MEDICATIONS: 1. Aspirin 81 mg daily. 2. Atorvastatin 40 mg daily. 3. Klonopin 1 mg at bedtime. 4. Digoxin 0.25 mg p.o. daily. 5. Famotidine 20 mg p.o. daily. 6. Lasix 40 mg daily. 7. Melatonin 3 mg at bedtime. 8. Oxybutynin 5 mg at bedtime. 9. Tylenol p.r.n. 10. [place] 10/325 q.4 hours p.r.n. 11. Calcium 500 mg q.6 hours p.r.n. 12. Clonidine 0.1 one p.o. q.6 hours. 13. Refresh eye drops 1 drop q.i.d. p.r.n. PHYSICAL EXAMINATION: VITAL SIGNS: Last documented vitals; BP 109/45, pulse 80, respirations 19, O2 saturation 100% on 2 L nasal cannula. GENERAL APPEARANCE: Age-appropriate female, in no distress. She is generally pale, but awake, alert, pleasant, and cooperative. HEENT: PERRL. No OP lesions. NECK: Supple and symmetric. HEART: Regular rate and rhythm with a 2/6 murmur at the right upper sternal border. LUNGS: Clear to auscultation bilaterally with good chest wall expansion and air exchange. ABDOMEN: Soft, nontender, and nondistended. Hyperactive bowel sounds. No masses. No organomegaly. EXTREMITIES: Trace bilateral lower extremity edema to the level of the knee. Pulses slightly diminished, but palpable. NEUROLOGIC: The patient appears to be cognitively intact, have spontaneous movement of all extremities without focal deficits. LABORATORY DATA: White count 12.3, hemoglobin 6.1, platelets 329. PT 18.4, INR 1.5, PTT 40.6. Chemistries notable for normal BMP. Iron 38, TIBC 140, ferritin 121. LFTs normal. Albumin 2.2. IMPRESSION AND PLAN: 1. Upper gastrointestinal bleed in a patient with recent hospitalization for right hip arthroplasty, subsequent atrial fibrillation, now on Eliquis. The patient has associated anemia, which has worsened from her previous value by about 2.5 g of hemoglobin. The patient wished to have IV dose of pantoprazole, and GI has been consulted. Given her Eliquis, we will likely need to try to manage her medically as best we can today and consider endoscopy soon. Last dose of Eliquis was yesterday. 2. Acute blood loss anemia. Hemoglobin was 8.8, now down to 6.1 two days later. Attempting to transfuse, but the patient has an antibody making it more difficult. It will likely be a couple of hours before the blood is available. 3. Hypovolemic shock. The patient was hypotensive secondary to the hypovolemia and bleeding. She appears to have responded well to IV fluids. At the moment, we will continue to monitor and give additional fluid as needed until the blood is available. 4. Atrial fibrillation. The patient recently had a run of atrial fibrillation that resolved with digoxin. She was started on Eliquis. She appears to be in sinus rhythm at the moment. We will hold off on any additional anticoagulation. 5. Hyperlipidemia. We will continue atorvastatin once the patient is able to get back on her oral medications. 6. Coronary artery disease. Holding aspirin for now. 7. Leukocytosis, likely just secondary demargination without evidence of acute infection. 8. Mild iron deficiency. Will need oral supplementation when taking p.o. Job ID: [id number]
--- NOTE | 2018-09-06 17:03 | RAD ---
Exam: XR Hip Rt 2-3 View HISTORY: Increasing right hip pain. COMPARISON: 08/26/2018 and 08/25/2018 FINDINGS: A right total hip prosthesis is again noted without evidence of a hardware complication or dislocatio n. There is a fracture involving the lesser trochanter with the lesser trochanter fracture fragment disp laced medially by 13 mm. Fracture of the lesser trochanter was not seen on the prior exam. No additional fracture is seen. IMPRESSION: 1. Avulsion fracture right lesser trochanter which was not seen on the study of 08/26/2018 or study on 08/25/2018. 2. Right total hip prosthesis without evidence of a hardware complication.
[2018-09-06] MEDS: Pantoprazole 40 MG VIAL IVP SCH (21:09)
[2018-09-06 23:35] LABS: Anion Gap 11 mmol/L (10-20); BUN (Urea Nitrogen) 19 mg/dL (9.8-20.1); Calc. Creatinine Clearance 80 mL/min (70-130); Carbon Dioxide 28 mmol/L (23-31); Chloride 104 mmol/L (98-107); Estimated GFR-MDRD Greater than 90; Glucose 89 mg/dL (83-110); Potassium 4.1 mmol/L (3.5-5.1); Sodium 139 mmol/L (136-145)
[2018-09-07] LABS: Hemoglobin 8.1 g/dL (12.0-16.0)
[2018-09-07 05:49] LABS: #Eosinphils 0.9 thou/uL (0.0-0.7); #Lymphocytes 1.9 thou/uL (1.20-3.40); #Monocytes 0.9 thou/uL (0.11-0.59); #Neutrophils 11.4 thou/uL (1.40-6.50); %Basophils 0.2 % (0.0-1.0); %Eosinophils 5.9 % (0.0-10.0); %Lymphocytes 12.3 % (21.0-51.0); %Monocytes 6.1 % (0.0-10.0); %Neutrophils 75.5 % (42.0-75.0); Hemoglobin 8.2 g/dL (12.0-16.0); Mean Corpuscular HGB CONC 33.5 g/dL (32.0-36.0); Mean Corpuscular Hemoglobin 31.1 pg (27.0-31.0); Mean Corpuscular Volume 92.8 fL (78.0-98.0); Platelet Count 308 thou/uL (130-400); RBC Distribution Width 16.3 % (11.5-14.5); Red Blood Cell (RBC) Count 2.63 mill/uL (4.20-5.40); White Blood Cell (WBC) Count 15.1 thou/uL (4.8-10.8)
[2018-09-07 05:57] LABS: Anion Gap 10 mmol/L (10-20); BUN (Urea Nitrogen) 21 mg/dL (9.8-20.1); Calc. Creatinine Clearance 77 mL/min (70-130); Calcium 8.3 mg/dL (7.8-10.44); Carbon Dioxide 29 mmol/L (23-31); Chloride 103 mmol/L (98-107); Estimated GFR-MDRD Greater than 90; Glucose 86 mg/dL (83-110); Sodium 138 mmol/L (136-145)
[2018-09-07] MEDS ORDERED: Propofol 500 MG/50 ML VIAL ONE (09:14)
[2018-09-07] MEDS ORDERED: Ketamine 50 MG/ML (10ML VIAL) ONE (09:14)
[2018-09-07] MEDS ORDERED: Promethazine HCl 25 MG/ML VIAL IM PRN (09:39)
[2018-09-07] MEDS ORDERED: Promethazine HCl 25 MG/ML VIAL SLOW IVP PRN (09:39)
[2018-09-07] MEDS ORDERED: Ondansetron HCl/PF 4 MG/2 ML Vial IVP PRN (09:39)
--- NOTE | 2018-09-07 11:08 | PRG ---
DATE OF SERVICE: 09/07/2018 SUBJECTIVE: I saw the patient in the PACU after her procedure with endoscopy, asked her about her hip, which was recently revised and she states she is doing okay, had some pain, but it is slowly getting better. She was in rehab and started having some hematemesis and was brought over. I looked at the hip again. Incision looked good. She does have some edema, ecchymosis, but palpation in the area is not painful for the patient. Good sensations in the lower extremity. ASSESSMENT: Stable hip. DIAGNOSTIC DATA: Reviewed x-rays. Hardware looks intact. No signs of lucency or failure. PLAN: She is to start working with physical therapy. She also is cleared by her medical team, and I have informed the patient of this. We will check on her periodically throughout her hospital stay if further care is needed. Job ID: [id number]
[2018-09-07] MEDS: Pantoprazole 40 MG VIAL IVP SCH (11:41)
[2018-09-07] MEDS ORDERED: EPINEPHrine 1 MG/10 ML Abboject SYRINGE ONE (12:05)
[2018-09-07] MEDS ORDERED: Glycopyrrolate 0.2 MG/ML 5 ML SYRINGE ONE (12:05)
[2018-09-07] MEDS ORDERED: PROPOFOL 200 MG/20 ML VIAL ONE (12:05)
[2018-09-07 12:20] LABS: Hemoglobin 6.8 g/dL (12.0-16.0)
--- NOTE | 2018-09-07 14:45 | PDOC.PN ---
- Subjective Encounter Start Date: 09/07/18 Encounter Start Time: 14:44 Ms. Leroy was seen today in follow-up of hematemesis. She has returned from EGD. she does not have any complaints. She denies abdominal pain, no vomiting or nausea. - Objective Resuscitation Status - Order Detail: 09/06/18 12:44 Resuscitation Status Routine Resuscitation Status: FULL: Full Resuscitation MAR Reviewed: Yes Vital Signs & Weight: Vital Signs (12 hours) Temp Pulse Ox 09/07/18 10:56 98.4 F 09/07/18 07:45 98 09/07/18 07:18 98.3 F 09/07/18 04:00 97.9 F 09/07/18 03:25 95 Weight Weight 168 lb 11.2 oz Most Recent Monitor Data Heart Rate from ECG 92 NIBP 124/41 NIBP BP-Mean 68 Respiration from ECG 22 SpO2 97 I&O: 09/06/18 09/07/18 09/08/18 06:59 06:59 06:59 Intake Total 820 Balance 820 Result Diagrams: 09/07/18 12:14 09/07/18 05:17 Phys Exam - Physical Examination HEENT: PERRLA Respiratory: no wheezing, no rales, no rhonchi, clear to auscultation bilateral Cardiovascular: RRR, no significant murmur, no rub Gastrointestinal: soft, non-tender, no distention, positive bowel sounds Musculoskeletal: pulses present, edema present + non-pitting edema in both lower extremities Neurological: non-focal, normal sensation Dx/Plan (1) Peptic ulcer hemorrhage Code(s): K27.4 - CHRONIC OR UNSP PEPTIC ULCER, SITE UNSP, WITH HEMORRHAGE Status: Acute (2) Anemia due to acute blood loss Code(s): D62 - ACUTE POSTHEMORRHAGIC ANEMIA Status: Acute Comment: stable after transfusion (3) 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 * Recent Right THR- stable * Re-start Home medications once she is cleared to take p.o.
--- NOTE | 2018-09-07 16:45 | CON ---
DATE OF CONSULTATION: 09/07/2018 CONSULTING PHYSICIAN: Hospitalist Group. REASON FOR CONSULTATION: IMCU placement. HISTORY OF PRESENT ILLNESS: Ms. Leroy is an 88-year-old female, who was recently here for surgery on the right hip. Yesterday, she developed anemia and hematemesis. This is secondary to a bleeding duodenal ulcer, which was cauterized by Dr. Snyder earlier today. She is awake and in no distress. She did receive a couple of units of blood. PAST MEDICAL HISTORY: 1. Dementia. 2. Coronary artery disease. 3. Hyperlipidemia. 4. Recent hip fracture. PAST SURGICAL HISTORY: 1. Appendectomy. 2. Bilateral total knee arthroplasties. 3. Bilateral total hip arthroplasties with a revision the right hip arthroplasty on 08/26/2018. 4. Colon resection. FAMILY MEDICAL HISTORY: Unremarkable. SOCIAL HISTORY: Nonsmoker. Does not consume alcohol. ALLERGIES: BACITRACIN, NEOMYCIN, AND POLYMYXIN B. MEDICATIONS: Prior to admission, these were reviewed, see chart. REVIEW OF SYSTEMS: Twelve-point review of systems is otherwise negative. PHYSICAL EXAMINATION: VITAL SIGNS: Temperature 98.3, pulse 74, blood pressure 100/41, and O2 saturation 97%. GENERAL: She is in bed. She was seen right after her EGD, so she was somewhat sleepy. HEENT: Pupils react. Sclerae are anicteric. Oropharynx is clear. NECK: No JVD. LUNGS: Clear to auscultation. CARDIAC: S1 and S2, regular without audible murmur. ABDOMEN: Soft and nontender to palpation. EXTREMITIES: No edema. LABORATORY DATA: Sodium 138, potassium 4, BUN 21, creatinine 0.6, and glucose 86. INR 1.5. White blood cell count 15.1, hematocrit 24.4, and platelet count 308. ASSESSMENT: 1. Status post cauterization of bleeding ulcer. 2. Anemia due to blood loss. 3. Recent right hip surgery. PLAN: 1. Continue to monitor the patient's H and H. 2. Transfuse as needed. 3. Can likely be transferred out of the IMCU tomorrow. 4. I will notify Dr. Taveras of the patient's admission. Job ID: [id number]
[2018-09-07 17:50] LABS: Hemoglobin 6.5 g/dL (12.0-16.0)
[2018-09-07] MEDS: Pantoprazole 80 MG in Sodium Chloride 0.9% 100 ML IVP SCH (19:28)
[2018-09-08] MEDS: Pantoprazole 80 MG in Sodium Chloride 0.9% 100 ML IVP SCH ×2 (04:42→15:35)
[2018-09-08 05:07] LABS: #Basophils 0.1 thou/uL (0.0-0.2); #Eosinphils 0.5 thou/uL (0.0-0.7); #Lymphocytes 1.4 thou/uL (1.20-3.40); #Monocytes 1.1 thou/uL (0.11-0.59); #Neutrophils 13.9 thou/uL (1.40-6.50); %Basophils 0.3 % (0.0-1.0); %Monocytes 6.5 % (0.0-10.0); %Neutrophils 82.2 % (42.0-75.0); Hemoglobin 8.7 g/dL (12.0-16.0); Mean Corpuscular HGB CONC 32.7 g/dL (32.0-36.0); Mean Corpuscular Hemoglobin 29.8 pg (27.0-31.0); Mean Corpuscular Volume 91.2 fL (78.0-98.0); Mean Platelet Volume 7.2 fL (7.4-10.4); Platelet Count 265 thou/uL (130-400); Red Blood Cell (RBC) Count 2.93 mill/uL (4.20-5.40); White Blood Cell (WBC) Count 16.9 thou/uL (4.8-10.8)
[2018-09-08 05:26] LABS: Anion Gap 11 mmol/L (10-20); BUN (Urea Nitrogen) 21 mg/dL (9.8-20.1); Calc. Creatinine Clearance 82 mL/min (70-130); Calcium 8.2 mg/dL (7.8-10.44); Carbon Dioxide 25 mmol/L (23-31); Chloride 107 mmol/L (98-107); Estimated GFR-MDRD Greater than 90; Glucose 81 mg/dL (83-110); Potassium 3.9 mmol/L (3.5-5.1); Sodium 139 mmol/L (136-145)
--- NOTE | 2018-09-08 08:12 | OP ---
DATE OF PROCEDURE: 09/07/2018 PREPROCEDURE DIAGNOSIS: History of hematemesis when on anticoagulation with drop in hemoglobin, status post transfusion. POSTPROCEDURE DIAGNOSIS: Duodenal ulcer with visible vessel. I injected 1:10,000 epinephrine 3 mL and cauterized with 10-Burmese heater probe. RECOMMENDATIONS: 1. IV Protonix q.12 hours. 2. Ice chips. 3. H and H q.8 transfuse as needed. 4. If recurrent bleeding, back to endoscopy. ANESTHESIA: TIVA. PROCEDURE IN DETAIL: The patient was informed of the risks, benefits, and possible complications of the endoscopy including perforation, reaction to medication, and aspiration, informed consent was obtained and the patient was brought to the endoscopy suite, where she was sedated in a gradual fashion. Once she was comfortable, a bite block was placed inside the orifice. The endoscope was advanced through the esophagus, stomach, and the second and third portion of the duodenum was slowly removed. The esophagus was normal. In entering the stomach, there was some old blood and this was irrigated away and suctioned and cleared. There were no bleeding sites identified in the stomach. There was some submucosal hemorrhage in the proximal stomach, which was probably related to her previous retching, but no bleeding from the site was identified. There was no Hannah-Richardson tear. The duodenum was entered. There was fresh blood noted in the posterior wall of the apex of the bulb of the duodenum. There was a visible vessel with clot present. These were injected with 1:10,000 epinephrine 3 mL and then the clot was removed with visible vessels. Small ulcers were seen. This was cauterized with 10-Bur[place]ese heater probe and was ablated. At the end of the procedure, no bleeding was identified. The stomach was then surveyed again closely with irrigation to clear up the old blood and make sure we were missing other small ulcers or erosions, and none were seen. After about 5 minutes, we looked at the ulcer site in the duodenal bulb again and it was normal. It showed no signs of bleeding and good hemostasis. We advanced beyond this into the second and third portion of the duodenum, no lesions were seen. The scope was then removed. The patient tolerated the procedure well. There were no complications. Job ID: [id number]
--- NOTE | 2018-09-08 09:41 | CON ---
DATE OF CONSULTATION: REASON FOR CONSULT: Reported hematemesis. HISTORY OF PRESENT ILLNESS: Ms. Leroy is an 88-year-old female who was in the hospital here last week with operative repair of a dislocated hip. This had been reduced externally the week prior to that, this was a replacement hip that had been dislocated. She did have some drop in hemoglobin of 12 on 08/26, 7.7 on 09/02. It had been stable really after surgery between 9 and 8. She was discharged to rehab inpatient on the . There apparently she developed some atrial fibrillation, was started on anticoagulation and then reportedly had an episode of bloody emesis. The emergency room note indicates that it started from 2 days ago. The patient states that she had a tooth that was bad and she was having some coughing and she just coughed up a little bit of blood with that. She thinks it was just bleeding from her gum and she has had quite diseased gums and dentition, notes blood intermittently. Dr. Yancey called in for the emergency room. He evaluated the patient, noted that she had been on the Eliquis for about 3 to 4 days prior to all this, and this was last given yesterday. He also got a report that the blood was bright red in nature. Blood pressures in the 80s/40s there and she was transferred to the emergency room here where she was given IV fluid bolus, her hemoglobin was found to be 6.2. She is just now getting a blood transfusion as she had an . She has had no further bleeding or hematemesis here. She has received Protonix. I have been asked to evaluate her with regard to possible upper GI bleeding. In talking with the family, they were not there when it happened. They are in the bedside now. They do state that she had complained of actually more pain in her hip over the past 2 or 3 days, worse when she was here after the surgery initially. She denies any prior history of throwing up blood; although, she has had a history of dysphagia and esophageal dilatation in the past. REVIEW OF SYSTEMS: Positive shortness of breath at this time. She feels very fatigued. She is not nauseated. She denies abdominal pain. She has no chest pain, shortness of breath or dyspnea. PAST MEDICAL HISTORY: 1. Coronary artery disease, hyperlipidemia, recent hip replacement with drop in hemoglobin after that surgery. 2. Recent atrial fibrillation with starting Eliquis about 3 to 4 days ago. 3. Prior history of colon polyps. 4. Prior history of dysphagia with EGD and dilatation. PAST SURGICAL HISTORY: 1. Appendectomy. 2. Bilateral total knee arthroplasty. 3. Bilateral total hip arthroplasty. 4. Revision right hip arthroplasty, 08/26/2018. 5. Prior foot surgery. 6. Prior colon resection for tumor. 7. Previous dilatation of the esophagus in 2016, last colonoscopy in 2011. FAMILY HISTORY: Noncontributory. SOCIAL HISTORY: Nonsmoker, nondrinker. Son and [id number] are at bedside. ALLERGIES: BACITRACIN/NEOMYCIN/POLYMYXIN. MEDICATIONS: 1. Aspirin. 2. Atorvastatin. 3. Klonopin. 4. Digoxin. 5. Famotidine. 6. Lasix. 7. Melatonin. 8. Oxybutynin. 9. Tylenol. 10. [place]. 11. Calcium. 12. Clonidine. 13. She was on the Eliquis until yesterday. It was not given today. PRESENT MEDICATION: Pantoprazole 40 mg IV q.12. PHYSICAL EXAMINATION: VITAL SIGNS: Temperature 98, pulse 68, blood pressure 108/43. GENERAL: She is pale. HEENT: Sclerae nonicteric. Oropharynx, no lesions. NECK: Supple. No adenopathy. LUNGS: Clear. HEART: Regular rate and rhythm. There is 2/6 systolic ejection murmur felt at the precordium. This does transmit to the carotids on the right. ABDOMEN: Soft. It is nontender. There are no bruits in the abdomen. EXTREMITIES: Reveal jamel in the right hip. The right hip is more swollen than the left. It is painful now to move it. There is ecchymosis. The suture line appears clean and dry. LABORATORY DATA: Hemoglobin 6.2 at 1413 hours, it was 6.1 at 1048 hours, it was 8.8 on 0516 hours. INR was 1.5, PTT 18, PTT 40. Sodium 139, potassium 4.3, BUN and creatinine are 13 and 0.6. Iron 38, TIBC 148, ferritin 121. ASSESSMENT: Reported hematemesis after starting Eliquis for atrial fibrillation at rehab in a patient who has recently had hip replacement on the right. The reports that I got from the admitting physician was that at the rehab hospital, she threw up bright red blood, although I cannot confirm that report. The patient states she spit up a small amount of coffee-ground like material and coughed it up and did not throw out it up. This combined with the fact that she had worsening hip pain in last year or so raises the concern, possibly although she may have had a little hematemesis, it may have just been related to oropharyngeal loss with her anticoagulation that she may have some bleeding in her hip and it is hurting more, but more likely she has an ulcer. PLAN: Stop anticoagulation, transfuse, start PPI q.12, n.p.o., EGD tomorrow morning after Eliquis has fully worn off. If there is severe ongoing bleeding, we can proceed with more urgent endoscopy or Eliquis, this will require intubation for airway management. Job ID: [id number]
--- NOTE | 2018-09-08 11:35 | PRG ---
DATE OF SERVICE: 09/08/2018 SERVICE: Pulmonary Medicine. INTERVAL HISTORY: The patient is doing fine from respiratory standpoint. Breathing comfortably. She has no complaints of nausea, vomiting, or chest discomfort. She went back down for repeat EGD this morning as she required 2 units of blood overnight. There was no active bleeding noted on this occasion. That being said, there were multiple areas that look like they could have recently bled. They were subjected to repeat cauterization. A clip was placed. PHYSICAL EXAMINATION: VITAL SIGNS: Afebrile, pulse 69, blood pressure 139/51, respirations 18, and saturation 100% on room air. GENERAL: The patient is awake and alert, in no apparent distress. LUNGS: Decent air entry with no prolonged expiratory phase or wheezing present. HEART: Normal rate and regular. ABDOMEN: Soft, nontender, and nondistended. Bowel sounds are positive. MUSCULOSKELETAL: No cyanosis or clubbing. No pitting in the bilateral lower extremities. NEUROLOGIC: Grossly nonfocal. LABORATORY DATA: Hemoglobin 8.7, WBC 16.9, and platelets 265,000. INR 1.5. Basic metabolic profile is otherwise unremarkable. ASSESSMENT: 1. Acute blood loss anemia. 2. Duodenal ulcer. 3. Recent hip surgery with subsequent bleed into the hip. DISCUSSION AND PLAN: The patient is doing fine from respiratory standpoint. She will need to remain in the IMCU for close observation for the next 24 hours. We will trend hemoglobins through time. We will transfuse to keep her above 7. The patient is doing very well from a resuscitation standpoint. Job ID: [id number]
[2018-09-08 11:51] LABS: Hemoglobin 8.9 g/dL (12.0-16.0)
--- NOTE | 2018-09-08 11:54 | OP ---
DATE OF PROCEDURE: 09/08/2018 PROCEDURE PERFORMED: Esophagogastroduodenoscopy, control of hemorrhage. PREOPERATIVE DIAGNOSES: Gout, duodenal ulcer, status post treatment yesterday with injection and cautery with recurrent bleeding overnight and requirement of 4 units of blood. POSTPROCEDURE DIAGNOSES: 1. Again, the esophagus and stomach were completely normal. Pyloric channel was normal. 2. The deep small ulcer with visible vessel was noted at the base of the apex. The duodenal bulb was present. There was no active bleeding, but a small visible vessel was present here with a clot. This was an area of previous cautery and treatment. This was retrieved with 10-[place] heater probe with good effect and hemoclip was placed. 3. There were 3 other small ulcers in the duodenal bulb, 1 superior, 1 just in front of the ulcers in the apex, it was treated endoscopically and 1 posterior. These ranged in size between 3 and 10 mm. They were white base and were nonbleeding. 4. Duodenum distal. This was normal. ANESTHESIA: TIVA. DESCRIPTION OF PROCEDURE: The patient was informed of the risks, benefits, and possible complications of endoscopy including perforation, bleeding, reaction to medication, and aspiration. Informed consent was obtained. The patient was brought to endoscopy suite, where she was sedated in a gradual fashion. When she was comfortable, bite block was placed inside the orifice. The endoscope was advanced through the bite block into the esophagus, stomach, and the second and third portions of duodenum. The esophagus was normal. The stomach explored, normal in retroflexed views, except for some submucosal erythema and hemorrhage in the proximal stomach, which was again evaluated and was not felt to be a bleeding source. There was no evidence of gastric varices or portal hypertensive gastropathy. There was no GAVE. No Dieulafoy-like lesions were seen. The scope was then advanced into the duodenum. Again, at the superior aspect of the bulb, there was a 1 cm flat shallow white based ulcer with no stigmata of bleeding. Just in front of the deep ulcer at the apex of the bulb of the duodenum, there was about 5 mm shallow white based ulcer, and there were some red spots here, but no visible vessels or stigmata indicate this was what was bleeding bleed. Then, posterior in the wall, there was a 3 mm ulcer that was thick and shallow white based with no stigmata of bleeding. Attention was then turned to the ulcer that was treated yesterday, which was deep in the base of the apex of the duodenal bulb. There seemed to be 2 small visible vessels still present here, 1 with a slight pulsatile appearance, but thrombin clot. The scope was advanced beyond this. The second and third portions of duodenum with no other lesions or ulcer seen and clear bile noted. Attention was returned to the ulcer in the base of the apex of the duodenal bulb and this was cauterized with 10-[place] heater probe and ablated, then a hemoclip was placed over this to approximate the margins of the ulcer in the area where the visible vessel was treated. The scope was removed. The patient tolerated the procedure well and was brought to recovery room in stable condition. Job ID: [id number]
[2018-09-08] MEDS ORDERED: PROPOFOL 200 MG/20 ML VIAL ONE (13:19)
[2018-09-08] MEDS ORDERED: Lidocaine 1% PF 5 ML VIAL ONE (13:19)
--- NOTE | 2018-09-08 16:59 | PDOC.PN ---
- Subjective Encounter Start Date: 09/08/18 Encounter Start Time: 11:10 Ms. Leroy was seen today in follow-up of Duodenal Ulcer with bleed. She had some more bleeding last night, and required transfusion. She is back from repeat EGD. She is sitting up eating a clear liquid diet when I came to see her. She does not have any complaints. - Objective Resuscitation Status - Order Detail: 09/06/18 12:44 Resuscitation Status Routine Resuscitation Status: FULL: Full Resuscitation MAR Reviewed: Yes Vital Signs & Weight: Vital Signs (12 hours) Temp Pulse Pulse BP BP BP Pulse Ox 09/08/18 15:35 98.6 F 09/08/18 14:28 78 70 136/58 L 171/65 H 133/54 L 09/08/18 11:32 98.1 F 09/08/18 07:53 100 09/08/18 07:31 98.5 F Pulse Ox Pulse Ox 09/08/18 15:35 09/08/18 14:28 98 97 09/08/18 11:32 09/08/18 07:53 09/08/18 07:31 Weight Weight 168 lb 11.2 oz Most Recent Monitor Data Heart Rate from ECG 70 NIBP 136/56 NIBP BP-Mean 82 Respiration from ECG 15 SpO2 97 I&O: 09/07/18 09/08/18 09/09/18 06:59 06:59 06:59 Intake Total 820 1738 Balance 820 1738 Result Diagrams: 09/08/18 11:46 09/08/18 04:38 Phys Exam - Physical Examination HEENT: PERRLA, sclera anicteric Respiratory: no wheezing, no rales, no rhonchi, clear to auscultation bilateral Cardiovascular: RRR, no significant murmur, no rub Gastrointestinal: soft, non-tender, no distention, positive bowel sounds Musculoskeletal: no edema, pulses present Dx/Plan (1) Peptic ulcer hemorrhage Code(s): K27.4 - CHRONIC OR UNSP PEPTIC ULCER, SITE UNSP, WITH HEMORRHAGE Status: Acute Comment: Duodenal Ulcer with visible vessel (2) Anemia due to acute blood loss Code(s): D62 - ACUTE POSTHEMORRHAGIC ANEMIA Status: Acute Comment: stable after transfusion (3) 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 * CAD- stable
[2018-09-08 20:03] LABS: Hemoglobin 8.7 g/dL (12.0-16.0)
[2018-09-09] MEDS ORDERED: HYDROcodone/Acetaminophen 5/325 mg Tablet PO PRN (01:14)
[2018-09-09] MEDS: HYDROcodone/Acetaminophen 5/325 mg Tablet PO PRN (01:31)
[2018-09-09] MEDS: Pantoprazole 80 MG in Sodium Chloride 0.9% 100 ML IVP SCH ×3 (02:51→21:21)
[2018-09-09 03:31] LABS: #Eosinphils 0.7 thou/uL (0.0-0.7); #Lymphocytes 1.3 thou/uL (1.20-3.40); #Monocytes 0.8 thou/uL (0.11-0.59); #Neutrophils 10.6 thou/uL (1.40-6.50); %Basophils 0.3 % (0.0-1.0); %Eosinophils 5.4 % (0.0-10.0); %Lymphocytes 9.8 % (21.0-51.0); %Monocytes 6.1 % (0.0-10.0); %Neutrophils 78.4 % (42.0-75.0); Hemoglobin 8.6 g/dL (12.0-16.0); Mean Corpuscular HGB CONC 33.2 g/dL (32.0-36.0); Mean Corpuscular Hemoglobin 30.7 pg (27.0-31.0); Mean Corpuscular Volume 92.6 fL (78.0-98.0); Mean Platelet Volume 7.3 fL (7.4-10.4); Platelet Count 277 thou/uL (130-400); RBC Distribution Width 16.3 % (11.5-14.5); Red Blood Cell (RBC) Count 2.78 mill/uL (4.20-5.40); White Blood Cell (WBC) Count 13.5 thou/uL (4.8-10.8)
[2018-09-09 03:52] LABS: Anion Gap 12 mmol/L (10-20); BUN (Urea Nitrogen) 15 mg/dL (9.8-20.1); Calc. Creatinine Clearance 92 mL/min (70-130); Calcium 8.4 mg/dL (7.8-10.44); Carbon Dioxide 23 mmol/L (23-31); Chloride 108 mmol/L (98-107); Estimated GFR-MDRD Greater than 90; Glucose 83 mg/dL (83-110); Potassium 3.5 mmol/L (3.5-5.1); Sodium 139 mmol/L (136-145)
[2018-09-09] MEDS ORDERED: Potassium Chloride 20 MEQ TAB PO SCH (09:00)
--- NOTE | 2018-09-09 10:00 | PRG ---
DATE OF SERVICE: 09/09/2018 SERVICE: Pulmonary Medicine. INTERVAL HISTORY: The patient is doing really well from respiratory standpoint. Overnight, her mentation has cleared a little bit. She still remains altered, but I believe she is currently close to her baseline. She had two bowel movements. They appeared to have old blood components to them. Her hemoglobins overnight were stable and she did not require any additional transfusions. PHYSICAL EXAMINATION: VITAL SIGNS: Afebrile. Pulse 75, blood pressure 157/62, respirations 19, and saturation 98% on room air. GENERAL: The patient is awake and alert, in no apparent distress. LUNGS: Decent air entry with no prolonged expiratory phase or wheezing present. HEART: Normal rate, regular. ABDOMEN: Soft, nontender, and nondistended. Bowel sounds are positive. MUSCULOSKELETAL: No cyanosis or clubbing. No pitting in the bilateral lower extremities. NEUROLOGIC: Grossly nonfocal. LABORATORY DATA: WBC 13.5, hemoglobin 8.6, platelets 277,000. INR 1.5. Basic metabolic profile is otherwise unremarkable. Potassium 3.5. ASSESSMENT: 1. Acute blood loss anemia. 2. Duodenal ulcer, status post EGD x2 with good hemostasis. 3. Recent hip surgery with subsequent bleeding to the hip. DISCUSSION AND PLAN: I will replace the potassium. At this point, her hemodynamics have been stable for 24 hours and she has not required additional blood products. Her hemoglobins have remained stable. We will continue to follow hemoglobins through time. We will transition her to the floor. We will continue to observe for recurrent bleeding. When she arrives on the floor, she will have no further requirements for inpatient Pulmonary Critical Care opinion, and I will sign off. Please call with additional questions or concerns through time. Job ID: [id number]
--- NOTE | 2018-09-09 15:12 | PDOC.PN ---
- Subjective Encounter Start Date: 09/09/18 Encounter Start Time: 10:45 Ms. Leroy was seen today in follow-up of Duodenal Ulcer with hemorrhage. She does not have any complaints today. She would like to go home. - Objective Resuscitation Status - Order Detail: 09/06/18 12:44 Resuscitation Status Routine Resuscitation Status: FULL: Full Resuscitation MAR Reviewed: Yes Vital Signs & Weight: Vital Signs (12 hours) Temp Pulse Pulse Pulse BP BP BP 09/09/18 15:10 98.6 F 09/09/18 11:25 98.6 F 09/09/18 10:51 66 71 69 151/52 H 156/65 H 136/51 L 09/09/18 08:00 09/09/18 07:16 98.4 F 09/09/18 03:39 99.0 F Pulse Ox Pulse Ox Pulse Ox Pulse Ox 09/09/18 15:10 09/09/18 11:25 09/09/18 10:51 99 99 100 09/09/18 08:00 100 09/09/18 07:16 09/09/18 03:39 Weight Weight 168 lb 11.2 oz Most Recent Monitor Data Heart Rate from ECG 71 NIBP 147/60 NIBP BP-Mean 89 Respiration from ECG 22 SpO2 100 I&O: 09/08/18 09/09/18 09/10/18 06:59 06:59 06:59 Intake Total 1738 1398 Balance 1738 1398 Result Diagrams: 09/09/18 03:21 09/09/18 03:21 Phys Exam - Physical Examination HEENT: PERRLA, sclera anicteric Respiratory: no wheezing, no rales, no rhonchi, clear to auscultation bilateral Cardiovascular: RRR, no significant murmur, no rub Gastrointestinal: soft, non-tender, no distention, positive bowel sounds Musculoskeletal: pulses present, edema present Dx/Plan (1) Peptic ulcer hemorrhage Code(s): K27.4 - CHRONIC OR UNSP PEPTIC ULCER, SITE UNSP, WITH HEMORRHAGE Status: Acute Comment: Duodenal Ulcer with visible vessel (2) Anemia due to acute blood loss Code(s): D62 - ACUTE POSTHEMORRHAGIC ANEMIA Status: Acute Comment: stable after transfusion (3) 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 Her H&H has remained stable. * Continue IV Protonix * CAD- stable * Dementia- stable
[2018-09-10 04:38] LABS: Hemoglobin 9.8 g/dL (12.0-16.0)
[2018-09-10] MEDS: Pantoprazole 80 MG in Sodium Chloride 0.9% 100 ML IVP SCH ×2 (09:48→19:21)
--- NOTE | 2018-09-10 10:19 | PRG ---
DATE OF SERVICE: 09/10/2018 SERVICE: Pulmonary Medicine. INTERVAL HISTORY: The patient is doing great from respiratory standpoint. Breathing comfortably. She has been advanced to full liquid diet. She denies any fevers or chills. There were no significant overnight events. PHYSICAL EXAMINATION: VITAL SIGNS: Afebrile, pulse 67, blood pressure 143/77, respirations 19, and saturation 95% on room air. GENERAL: The patient is awake and alert, in no apparent distress. LUNGS: Excellent air entry. There is absolutely no prolonged expiratory phase. No crackles or wheezing appreciated. HEART: Normal rate, regular. ABDOMEN: Soft, nontender, and nondistended. Bowel sounds are positive. MUSCULOSKELETAL: No cyanosis or clubbing. No pitting in the bilateral lower extremities. NEUROLOGIC: Grossly nonfocal. LABORATORY DATA: Hemoglobin 9.8 and up trending. ASSESSMENT: 1. Acute blood loss anemia. 2. Duodenal ulcer status post cauterization/clip. 3. Recent hip surgery with subsequent bleed in the hip. DISCUSSION AND PLAN: The patient is doing absolutely wonderful from a cardiovascular and respiratory standpoint. At this point, from a purely respiratory perspective, she is certainly stable for transition out of the hospital. If she remains in this location, I will continue to follow, but if she is discharged today or goes to the floor, I will sign off. Please call with additional questions or concerns through time. Job ID: [id number]
--- NOTE | 2018-09-10 17:20 | PDOC.PN ---
- Subjective Encounter Start Date: 09/10/18 Encounter Start Time: 10:30 Ms. Leroy was seen today in follow-up of Duodenal Ulcer with hemorrhage. She does not have any complaints. She wants to go home. - Objective Resuscitation Status - Order Detail: 09/06/18 12:44 Resuscitation Status Routine Resuscitation Status: FULL: Full Resuscitation MAR Reviewed: Yes Vital Signs & Weight: Vital Signs (12 hours) Temp Pulse Pulse BP BP Pulse Ox 09/10/18 15:00 99.4 F 09/10/18 10:59 99.2 F 09/10/18 09:07 84 81 160/74 H 167/64 H 09/10/18 08:00 100 09/10/18 07:00 99.4 F Weight Weight 158 lb Most Recent Monitor Data Heart Rate from ECG 76 NIBP 156/60 NIBP BP-Mean 92 Respiration from ECG 17 SpO2 98 I&O: 09/09/18 09/10/18 09/11/18 06:59 06:59 06:59 Intake Total 1398 1660 Balance 1398 1660 Result Diagrams: 09/10/18 04:17 09/09/18 03:21 Phys Exam - Physical Examination HEENT: PERRLA Respiratory: no wheezing, no rales, no rhonchi, clear to auscultation bilateral Cardiovascular: RRR, no significant murmur, no rub Gastrointestinal: soft, non-tender, no distention, positive bowel sounds Musculoskeletal: no edema, pulses present Neurological: non-focal, normal sensation, moves all 4 limbs Dx/Plan (1) Peptic ulcer hemorrhage Code(s): K27.4 - CHRONIC OR UNSP PEPTIC ULCER, SITE UNSP, WITH HEMORRHAGE Status: Acute Comment: Duodenal Ulcer with visible vessel (2) Anemia due to acute blood loss Code(s): D62 - ACUTE POSTHEMORRHAGIC ANEMIA Status: Acute Comment: stable after transfusion (3) 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
[2018-09-10] MEDS: HYDROcodone/Acetaminophen 5/325 mg Tablet PO PRN (22:01)
[2018-09-11] MEDS: HYDROcodone/Acetaminophen 5/325 mg Tablet PO PRN (15:29)
--- NOTE | 2018-09-11 19:31 | PRG ---
DATE OF SERVICE: 09/11/2018 SUBJECTIVE: Ms. Leroy has had no further bleeding. We have advanced her to a regular diet and changed her PPIs to p.o. She feels well and is tolerating that per the nurses. PHYSICAL EXAMINATION: VITAL SIGNS: Blood pressure 134/63, temperature is 99, respirations 18. ABDOMEN: Soft and nontender. LUNGS: Clear. LABORATORY DATA: Hemoglobin was 9.8 yesterday, not checked today. ASSESSMENT: Duodenal ulcer, likely stress induced. Bleeding in the setting of recent hip repair. RECOMMENDATIONS: 1. Continue PPI therapy for 8 weeks. If she is to be on any NSAIDs, I would continue it indefinitely. 2. We will sign off for now. If I can be of any further assistance in her care, please do not hesitate to contact me. Job ID: [id number]
--- NOTE | 2018-09-11 20:14 | PDOC.PN ---
- Subjective Encounter Start Date: 09/11/18 Encounter Start Time: 19:00 Patient seen and examined for GI bleeding. No new hematochezia/hematemesis. No CP/SOB. No new complaints. No overnight events - Objective Resuscitation Status - Order Detail: 09/06/18 12:44 Resuscitation Status Routine Resuscitation Status: FULL: Full Resuscitation MAR Reviewed: Yes Vital Signs & Weight: Vital Signs (12 hours) Temp BP 09/11/18 19:47 99.8 F H 09/11/18 15:04 99.3 F 09/11/18 10:59 98.5 F 09/11/18 08:55 152/87 H Weight Weight 158 lb Most Recent Monitor Data Heart Rate from ECG 75 NIBP 134/63 NIBP BP-Mean 86 Respiration from ECG 19 SpO2 100 I&O: 09/10/18 09/11/18 09/12/18 06:59 06:59 06:59 Intake Total 1660 1310 1600 Output Total 400 1100 Balance 1660 910 500 Result Diagrams: 09/10/18 04:17 09/09/18 03:21 EKG Reviewed by me: Yes (Tele SR) Phys Exam - Physical Examination Constitutional: NAD Respiratory: no wheezing, no rhonchi Cardiovascular: RRR, no rub Gastrointestinal: soft, non-tender, positive bowel sounds Musculoskeletal: no edema Neurological: moves all 4 limbs Dx/Plan - Plan DVT proph w/SCDs IMPRESSION: Duodenal ulcer with hemorrhage - Eliquis dced Par Afib - in SR - not a candidate for anticoag due to GI bleed Hypotension due to GI bleed - improved Acute blood loss Anemia s/p 4 units PRBC CAD Recent hip surgery HLD Depression - mild - stable Iron deficiency PLAN: Change PPI to BID Advance diet Cont current meds as below Resume selected home meds Stable for discharge - Awaiting bed at rehab Transfer to medical in AM Review of Systems - Review of Systems Respiratory: negative: Cough, Dry, Shortness of Breath, Hemoptysis, SOB with Excertion, Pleuritic Pain, Sputum, Wheezing Cardiovascular: negative: chest pain, palpitations, orthopnea, paroxysmal nocturnal dyspnea, edema, light headedness, other - Medications/Allergies Allergies/Adverse Reactions: Allergies Allergy/AdvReac Type Severity Reaction Status Date / Time bacitracin Allergy Intermediate WELPS ON Verified 09/06/18 14:05 [From Neosporin SKIN ([id number])] neomycin Allergy Verified 09/06/18 14:05 [From Neosporin ([id number])] polymyxin B Allergy Verified 09/06/18 14:05 [From Neosporin ([id number])] Medications: Current Medications Hydrocodone Bitart/Acetaminophen ([place] 5/325) 1 tab PO Q6H PRN PRN Reason: Mild-Moderate Pain (1-5) Last Admin: 09/11/18 15:29 Dose: 1 tab Hydrocodone Bitart/Acetaminophen ([place] 5/325) 2 tab PO Q6H PRN PRN Reason: Moderate to Severe Pain (6-10) Last Admin: 09/09/18 21:20 Dose: 2 tab Multivitamins (Theragran) 1 tab PO DAILY [facility] Pantoprazole Sodium (Protonix) 40 mg PO BID JIM Last Admin: 09/11/18 09:18 Dose: 40 mg Sertraline HCl (Zoloft) 100 mg PO DAILY JIM Last Admin: 09/11/18 09:18 Dose: 100 mg Sodium Chloride (Flush - Normal Saline) 10 ml IVF PRN PRN PRN Reason: Saline Flush Last Admin: 09/11/18 09:18 Dose: 10 ml
[2018-09-11] MEDS ORDERED: Albuterol Sulfate 2.5 mg/3 ml Neb NEB PRN (20:18)
[2018-09-11] MEDS ORDERED: clonazePAM 1 MG TAB PO PRN (20:18)
[2018-09-11] MEDS ORDERED: cloNIDine 0.1 MG TAB PO PRN (20:18)
[2018-09-11] MEDS: Docusate 100 MG CAP PO SCH (20:42)
[2018-09-11] MEDS: Atorvastatin Calcium 40 MG TAB PO SCH (20:42)
[2018-09-11] MEDS: Melatonin 3 MG TAB PO SCH (20:43)
[2018-09-11] MEDS: Oxybutynin 5 MG TAB PO SCH (20:44)
[2018-09-12 05:45] LABS: Hemoglobin 9.8 g/dL (12.0-16.0); Platelet Count 383 thou/uL (130-400)
[2018-09-12 06:36] LABS: Anion Gap 10 mmol/L (10-20); BUN (Urea Nitrogen) 6 mg/dL (9.8-20.1); Calc. Creatinine Clearance 76 mL/min (70-130); Calcium 8.9 mg/dL (7.8-10.44); Carbon Dioxide 26 mmol/L (23-31); Chloride 108 mmol/L (98-107); Estimated GFR-MDRD Greater than 90; Glucose 104 mg/dL (83-110); Potassium 3.6 mmol/L (3.5-5.1); Sodium 140 mmol/L (136-145)
[2018-09-12] MEDS: Multivit, Therapeutic 1 TAB PO SCH (07:56)
[2018-09-12] MEDS: Docusate 100 MG CAP PO SCH ×2 (07:56→20:10)
[2018-09-12] MEDS: HYDROcodone/Acetaminophen 5/325 mg Tablet PO PRN ×2 (11:22→20:12)
[2018-09-12] MEDS: Melatonin 3 MG TAB PO SCH (20:10)
[2018-09-12] MEDS: Atorvastatin Calcium 40 MG TAB PO SCH (20:10)
[2018-09-12] MEDS: Oxybutynin 5 MG TAB PO SCH (20:11)
--- NOTE | 2018-09-12 23:10 | PDOC.PN ---
- Subjective Encounter Start Date: 09/12/18 Encounter Start Time: 08:15 Patient seen and examined for GI bleed. No new hematemesis or hematochezia. No new complaints. No overnight events - Objective Resuscitation Status - Order Detail: 09/06/18 12:44 Resuscitation Status Routine Resuscitation Status: FULL: Full Resuscitation MAR Reviewed: Yes Vital Signs & Weight: Vital Signs (12 hours) Temp Pulse Resp BP Pulse Ox 09/12/18 20:00 95 09/12/18 19:16 98.5 F 74 18 136/64 95 09/12/18 15:47 98.2 F 73 16 132/58 L 95 09/12/18 11:12 98.1 F 71 17 121/78 93 L Weight Weight 158 lb Most Recent Monitor Data Heart Rate from ECG 70 NIBP 164/83 NIBP BP-Mean 110 Respiration from ECG 23 SpO2 99 I&O: 09/11/18 09/12/18 09/13/18 06:59 06:59 06:59 Intake Total 1310 2000 1000 Output Total 400 1950 1300 Balance 910 50 -300 Result Diagrams: 09/13/18 06:35 09/13/18 06:35 EKG Reviewed by me: Yes Phys Exam - Physical Examination Constitutional: NAD Respiratory: no wheezing, no rhonchi Cardiovascular: RRR, no rub Gastrointestinal: soft, non-tender, positive bowel sounds Musculoskeletal: no edema Neurological: moves all 4 limbs Dx/Plan - Plan DVT proph w/SCDs IMPRESSION: Duodenal ulcer with hemorrhage - Eliquis discontinued Par Afib - in SR - not a candidate for anticoag due to GI bleed Hypotension due to GI bleed - improved Acute blood loss Anemia s/p 4 units PRBC CAD Recent hip surgery HLD Depression - mild - stable Iron deficiency PLAN: Cont PPI Start low dose ASA - I confirmed with Dr Snyder Cont other meds as below Resume selected home meds Stable for discharge - Awaiting bed at rehab AM labs Review of Systems - Review of Systems Respiratory: negative: Cough, Dry, Shortness of Breath, Hemoptysis, SOB with Excertion, Pleuritic Pain, Sputum, Wheezing Cardiovascular: negative: chest pain, palpitations, orthopnea, paroxysmal nocturnal dyspnea, edema, light headedness, other - Medications/Allergies Allergies/Adverse Reactions: Allergies Allergy/AdvReac Type Severity Reaction Status Date / Time bacitracin Allergy Intermediate WELPS ON Verified 09/06/18 14:05 [From Neosporin SKIN ([id number])] neomycin Allergy Verified 09/06/18 14:05 [From Neosporin ([id number])] polymyxin B Allergy Verified 09/06/18 14:05 [From Neosporin ([id number])] Medications: Current Medications Hydrocodone Bitart/Acetaminophen ([place] 5/325) 1 tab PO Q6H PRN PRN Reason: Mild-Moderate Pain (1-5) Last Admin: 09/12/18 20:12 Dose: 1 tab Hydrocodone Bitart/Acetaminophen ([place] 5/325) 2 tab PO Q6H PRN PRN Reason: Moderate to Severe Pain (6-10) Last Admin: 09/09/18 21:20 Dose: 2 tab Albuterol Sulfate (Ventolin) 2.5 mg NEB Q4H PRN PRN Reason: Dyspnea Atorvastatin Calcium (Lipitor) 40 mg PO HS REPLACED BY [facility] Last Admin: 09/12/18 20:10 Dose: 40 mg Clonazepam (Klonopin) 1 mg PO HS PRN PRN Reason: Anxiety Last Admin: 09/12/18 22:19 Dose: 1 mg Clonidine (Catapres) 0.1 mg PO Q6H PRN PRN Reason: SBP Greater Than 180 Docusate Sodium (Colace) 100 mg PO BID REPLACED BY [facility] Last Admin: 09/12/18 20:10 Dose: 100 mg Melatonin (Melatonin) 1.5 mg PO HS REPLACED BY [facility] Last Admin: 09/12/18 20:10 Dose: 1.5 mg Multivitamins (Theragran) 1 tab PO DAILY REPLACED BY [facility] Last Admin: 09/12/18 07:56 Dose: 1 tab Oxybutynin Chloride (Ditropan) 15 mg PO HS REPLACED BY [facility] Last Admin: 09/12/18 20:11 Dose: 15 mg Pantoprazole Sodium (Protonix) 40 mg PO BID REPLACED BY [facility] Last Admin: 09/12/18 20:12 Dose: 40 mg Sertraline HCl (Zoloft) 100 mg PO DAILY REPLACED BY [facility] Last Admin: 09/12/18 07:56 Dose: 100 mg Sodium Chloride (Flush - Normal Saline) 10 ml IVF PRN PRN PRN Reason: Saline Flush Last Admin: 09/12/18 07:56 Dose: 10 ml
[2018-09-13] MEDS: HYDROcodone/Acetaminophen 5/325 mg Tablet PO PRN (03:06)
[2018-09-13 06:55] LABS: #Basophils 0.1 thou/uL (0.0-0.2); #Eosinphils 0.4 thou/uL (0.0-0.7); #Lymphocytes 1.3 thou/uL (1.20-3.40); %Basophils 0.5 % (0.0-1.0); %Eosinophils 3.5 % (0.0-10.0); %Lymphocytes 10.7 % (21.0-51.0); %Monocytes 8.8 % (0.0-10.0); %Neutrophils 76.5 % (42.0-75.0); Hemoglobin 10.7 g/dL (12.0-16.0); Mean Corpuscular HGB CONC 31.9 g/dL (32.0-36.0); Mean Corpuscular Hemoglobin 30.3 pg (27.0-31.0); Mean Corpuscular Volume 95.1 fL (78.0-98.0); Mean Platelet Volume 7.2 fL (7.4-10.4); Platelet Count 428 thou/uL (130-400); RBC Distribution Width 16.5 % (11.5-14.5); Red Blood Cell (RBC) Count 3.53 mill/uL (4.20-5.40); White Blood Cell (WBC) Count 11.8 thou/uL (4.8-10.8)
[2018-09-13 07:14] LABS: Lactic Acid 1.3 mmol/L (0.5-2.2)
[2018-09-13 07:19] LABS: ALT (SGPT) 8 U/L (8-55); AST (SGOT) 20 U/L (5-34); Alkaline Phosphatase 140 U/L (40-150); Anion Gap 14 mmol/L (10-20); BUN (Urea Nitrogen) 10 mg/dL (9.8-20.1); Bilirubin, Total 0.9 mg/dL (0.2-1.2); Calc. Creatinine Clearance 71 mL/min (70-130); Carbon Dioxide 22 mmol/L (23-31); Chloride 109 mmol/L (98-107); Estimated GFR-MDRD Greater than 90; Globulin 2.7 g/dL (2.4-3.5); Glucose 107 mg/dL (83-110); Potassium 3.6 mmol/L (3.5-5.1); Protein, Total 5.7 g/dL (6.0-8.3); Sodium 141 mmol/L (136-145)
[2018-09-13] MEDS ORDERED: Aspirin 81 mg Enteric Coated Tablet PO SCH (09:00)
[2018-09-13] MEDS: Multivit, Therapeutic 1 TAB PO SCH (09:09)
[2018-09-13] MEDS: Docusate 100 MG CAP PO SCH ×2 (09:09→19:55)
[2018-09-13] MEDS ORDERED: traMADol HCl 50 MG TAB PO PRN (11:40)
[2018-09-13] MEDS ORDERED: Vancomycin HCl 1 GM in Premix Bag 1 BAG IVPB SCH (13:00)
[2018-09-13 13:55] LABS: Clarity CLOUDY (Clear); Glucose, Urine (Dipstick) Negative (Negative); Leukocyte Moderate (Negative); Nitrite Negative (Negative); Protein, Urine (Dipstick) Trace mg/dL (Neg-Trace); Specific Gravity, Urine 1.015 (1.005-1.030)
[2018-09-13 13:56] LABS: Bilirubin Negative (Negative); Blood, Urine Trace (Negative)
[2018-09-13] MEDS: Acetaminophen 325 MG TAB PO SCH ×2 (13:56→19:55)
[2018-09-13 13:58] LABS: Bacteria/HPF 4+ HPF (None Seen); Hyaline Casts/LPF 0-3 HYALINE CAST LPF (0-3 Hyaline); Squamous Epithelial 0-3 HPF (0-3); WBC/HPF 21-50 HPF (0-3)
[2018-09-13] MEDS ORDERED: Ondansetron ODT 4 MG TAB PO PRN (14:54)
[2018-09-13] MEDS ORDERED: Ondansetron PF 4 MG/2 ML Vial IVP PRN (14:54)
[2018-09-13] MEDS: cefTRIAXone\\ROCEPHIN 1 GM in Sodium Chloride 0.9% 100 ML IVPB SCH (16:05)
--- NOTE | 2018-09-13 18:59 | RAD ---
AP view abdomen. HISTORY: Nausea and vomiting evaluate for small bowel obstruction. AP view abdomen obtained. Bilateral hip arthroplasty seen. Multilevel lumbar degenerative changes seen. A moderate amount of stool seen in the rectum. No evidence of bowel obstruction or ileus seen. IMPRESSION: No significant evidence of acute intra-abdominal abnormality seen.
[2018-09-13] MEDS: Atorvastatin Calcium 40 MG TAB PO SCH (19:55)
[2018-09-13] MEDS: Oxybutynin 5 MG TAB PO SCH (19:56)
[2018-09-13] MEDS: Melatonin 3 MG TAB PO SCH (19:56)
--- NOTE | 2018-09-13 22:55 | PDOC.PN ---
- Subjective Encounter Start Date: 09/13/18 Encounter Start Time: 11:00 Patient seen and examined for GI bleeding. Had small amt of melanotic stool earlier. Also some drainage from the recent hip surgery site. No new complaints. Overnight events noted. Became confused after Clonazepam and [place]. - Objective Resuscitation Status - Order Detail: 09/06/18 12:44 Resuscitation Status Routine Resuscitation Status: FULL: Full Resuscitation MAR Reviewed: Yes Vital Signs & Weight: Vital Signs (12 hours) Temp Pulse Resp BP Pulse Ox 09/13/18 20:00 98.3 F 90 20 114/51 L 99 09/13/18 15:32 98.5 F 100 20 155/59 H 100 09/13/18 11:53 98.2 F 75 20 153/69 H 100 Weight Weight 158 lb Most Recent Monitor Data Heart Rate from ECG 70 NIBP 164/83 NIBP BP-Mean 110 Respiration from ECG 23 SpO2 99 I&O: 09/12/18 09/13/18 09/14/18 06:59 06:59 06:59 Intake Total 2000 1400 1050 Output Total 1950 1800 1600 Balance 50 -400 -550 Result Diagrams: 09/13/18 06:35 09/13/18 06:35 Phys Exam - Physical Examination Constitutional: NAD Respiratory: no wheezing, no rhonchi Cardiovascular: RRR, no rub Gastrointestinal: soft, non-tender, positive bowel sounds Musculoskeletal: no edema Dx/Plan - Plan DVT proph w/SCDs IMPRESSION: Duodenal ulcer with hemorrhage - Eliquis discontinued Par Afib - in SR - not a candidate for anticoag due to GI bleed Hypotension due to GI bleed - improved Acute blood loss Anemia s/p 4 units PRBC Drainage from recent Rt hip surgery - cultures GPC CAD Recent hip surgery HLD Depression - mild - stable Iron deficiency UTI diagnosed at rehab 2 days prior to admission (Son reported today) PLAN: Cont PPI Dr Cross notified regarding the drainage Check UA Start Vancomycin Hold ASA due to melena todayRestart ASA if no new GI bleed Cont other meds as below Resume selected home meds Awaiting bed at rehab Hold Clonazepam/[place] AM labs Review of Systems - Review of Systems Respiratory: negative: Cough, Dry, Shortness of Breath, Hemoptysis, SOB with Excertion, Pleuritic Pain, Sputum, Wheezing Cardiovascular: negative: chest pain, palpitations, orthopnea, paroxysmal nocturnal dyspnea, edema, light headedness, other - Medications/Allergies Allergies/Adverse Reactions: Allergies Allergy/AdvReac Type Severity Reaction Status Date / Time bacitracin Allergy Intermediate WELPS ON Verified 09/06/18 14:05 [From Neosporin SKIN ([id number])] neomycin Allergy Verified 09/06/18 14:05 [From Neosporin ([id number]-[id number])] polymyxin B Allergy Verified 09/06/18 14:05 [From Neosporin ([id number]-kkq-[id number])] hydrocodone AdvReac Verified 09/13/18 11:39 Medications: Current Medications Acetaminophen (Tylenol) 650 mg PO TID [facility] Last Admin: 09/13/18 19:55 Dose: 650 mg Albuterol Sulfate (Ventolin) 2.5 mg NEB Q4H PRN PRN Reason: Dyspnea Aspirin (Ecotrin) 81 mg PO DAILY [facility] Last Admin: 09/13/18 09:09 Dose: 81 mg Atorvastatin Calcium (Lipitor) 40 mg PO [facility] Last Admin: 09/13/18 19:55 Dose: 40 mg Clonidine (Catapres) 0.1 mg PO Q6H PRN PRN Reason: SBP Greater Than 180 Docusate Sodium (Colace) 100 mg PO BID [facility] Last Admin: 09/13/18 19:55 Dose: 100 mg Vancomycin HCl 750 mg/ Sodium (Chloride) 250 mls @ 250 mls/hr IVPB 1100,2300 [facility] Ceftriaxone Sodium 1 gm/ (Sodium Chloride) 100 mls @ 200 mls/hr IVPB Q24HR [facility] Last Admin: 09/13/18 16:05 Dose: 100 mls Melatonin (Melatonin) 1.5 mg PO [facility] Last Admin: 09/13/18 19:56 Dose: 1.5 mg Miscellaneous Medication (Pharmacy To Dose) 1 each IVPB PRN PRN PRN Reason: Pharmacy to dose Multivitamins (Theragran) 1 tab PO DAILY [facility] Last Admin: 09/13/18 09:09 Dose: 1 tab Ondansetron HCl (Zofran Odt) 4 mg PO Q6H PRN PRN Reason: Nausea/Vomiting Ondansetron HCl (Zofran) 4 mg IVP Q6H PRN PRN Reason: Nausea/Vomiting Last Admin: 09/13/18 15:08 Dose: 4 mg Oxybutynin Chloride (Ditropan) 15 mg PO HS [facility] Last Admin: 09/13/18 19:56 Dose: 15 mg Pantoprazole Sodium (Protonix) 40 mg PO BID [facility] Last Admin: 09/13/18 19:56 Dose: 40 mg Saccharomyces Boulardii (Florastor) 250 mg PO DAILY [facility] Sertraline HCl (Zoloft) 100 mg PO DAILY [facility] Last Admin: 09/13/18 09:09 Dose: 100 mg Sodium Chloride (Flush - Normal Saline) 10 ml IVF PRN PRN PRN Reason: Saline Flush Last Admin: 09/12/18 07:56 Dose: 10 ml Tramadol HCl (Ultram) 50 mg PO Q6H PRN PRN Reason: Moderate Pain (4-6)
[2018-09-13] MEDS: Vancomycin HCl 750 MG in Sodium Chloride 0.9% 250 ML 250 ML IVPB SCH (23:03)
[2018-09-14 06:19] LABS: Anion Gap 15 mmol/L (10-20); BUN (Urea Nitrogen) 26 mg/dL (9.8-20.1); Calc. Creatinine Clearance 36 mL/min (70-130); Calcium 7.9 mg/dL (7.8-10.44); Carbon Dioxide 21 mmol/L (23-31); Chloride 107 mmol/L (98-107); Estimated GFR-MDRD 42; Glucose 89 mg/dL (83-110); Magnesium 1.8 mg/dL (1.6-2.6); Potassium 3.9 mmol/L (3.5-5.1); Sodium 139 mmol/L (136-145)
[2018-09-14 06:31] LABS: Band 21 % (5-11); Hemoglobin 9.8 g/dL (12.0-16.0); Lymphocytes 4 % (21-51); MDiff Complete? YES; Mean Corpuscular Hemoglobin 31.2 pg (27.0-31.0); Mean Corpuscular Volume 94.6 fL (78.0-98.0); Mean Platelet Volume 7.7 fL (7.4-10.4); Metamyelocyte 2 % (0-0); Monocytes 1 % (0-10); Neutrophil 72 % (42-75); Platelet Count 337 thou/uL (130-400); RBC Distribution Width 16.6 % (11.5-14.5); Red Blood Cell (RBC) Count 3.13 mill/uL (4.20-5.40); White Blood Cell (WBC) Count 21.7 thou/uL (4.8-10.8)
[2018-09-14] MEDS: Saccharomyces boulardii 250 MG CAP PO SCH (08:48)
[2018-09-14] MEDS: Docusate 100 MG CAP PO SCH ×2 (08:49→20:24)
[2018-09-14] MEDS: Multivit, Therapeutic 1 TAB PO SCH (08:49)
[2018-09-14] MEDS: Acetaminophen 325 MG TAB PO SCH ×3 (08:56→20:23)
[2018-09-14] MEDS: Vancomycin HCl 750 MG in Sodium Chloride 0.9% 250 ML 250 ML IVPB SCH (11:30)
[2018-09-14] MEDS ORDERED: CEFAZOLIN 2 GM in Premix Bag 1 BAG IVPB SCH (14:00)
[2018-09-14] MEDS: cefTRIAXone\\ROCEPHIN 1 GM in Sodium Chloride 0.9% 100 ML IVPB SCH (14:21)
--- NOTE | 2018-09-14 15:41 | PDOC.PN ---
- Subjective Encounter Start Date: 09/14/18 Encounter Start Time: 08:20 Pt seen for followup re: GI bleed. Says she feels well. Sleepy but arousable. - Objective Resuscitation Status - Order Detail: 09/06/18 12:44 Resuscitation Status Routine Resuscitation Status: FULL: Full Resuscitation Vital Signs & Weight: Vital Signs (12 hours) Temp Pulse Resp BP Pulse Ox 09/14/18 11:48 98.1 F 78 18 97/54 L 94 L 09/14/18 08:00 98.3 F 69 18 100/53 L 93 L 09/14/18 04:00 97.9 F 82 18 102/55 L 94 L Weight Weight 158 lb Most Recent Monitor Data Heart Rate from ECG 70 NIBP 164/83 NIBP BP-Mean 110 Respiration from ECG 23 SpO2 99 I&O: 09/13/18 09/14/18 09/15/18 06:59 06:59 06:59 Intake Total 1400 1550 200 Output Total 1800 1900 Balance -400 -350 200 Result Diagrams: 09/14/18 05:36 09/14/18 05:36 Phys Exam - Physical Examination Constitutional: NAD HEENT: moist MMs Neck: supple Respiratory: clear to auscultation bilateral Cardiovascular: RRR Gastrointestinal: soft R hip discharge Neurological: moves all 4 limbs Psychiatric: normal affect Dx/Plan (1) Peptic ulcer hemorrhage Code(s): K27.4 - CHRONIC OR UNSP PEPTIC ULCER, SITE UNSP, WITH HEMORRHAGE Status: Acute Comment: continue PPI. Hold anticoagulation. (2) UTI (urinary tract infection) Status: Acute Comment: Pt is on ceftriaxone and vancomycin, has bandemia today. Will change ceftriaxone to meropenem in case she is having UTI with ESBL + organism (recent urine cultures grew pansensitive E. coli) (3) Dementia Code(s): F03.90 - UNSPECIFIED DEMENTIA WITHOUT BEHAVIORAL DISTURBANCE Status: Chronic Comment: stable (4) CAD (coronary artery disease) Code(s): I25.10 - ATHSCL HEART DISEASE OF [place] CORONARY ARTERY W/O ANG PCTRS Status: Chronic Comment: stable (5) Dyslipidemia Code(s): E78.5 - HYPERLIPIDEMIA, UNSPECIFIED Status: Chronic Comment: continue statin (6) Anemia due to acute blood loss Code(s): D62 - ACUTE POSTHEMORRHAGIC ANEMIA Status: Resolved - Plan * . Review of Systems - Review of Systems Cardiovascular: negative: chest pain, palpitations, orthopnea, paroxysmal nocturnal dyspnea, edema, light headedness Gastrointestinal: negative: Nausea, Vomiting, Abdominal Pain, Diarrhea, Constipation, Melena, Hematochezia - Medications/Allergies Allergies/Adverse Reactions: Allergies Allergy/AdvReac Type Severity Reaction Status Date / Time bacitracin Allergy Intermediate WELPS ON Verified 09/06/18 14:05 [From Neosporin SKIN ([id number])] neomycin Allergy Verified 09/06/18 14:05 [From Neosporin ([id number]-[id number])] polymyxin B Allergy Verified 09/06/18 14:05 [From Neosporin ([id number]-[id number])] hydrocodone AdvReac Verified 09/13/18 11:39 Medications: Current Medications Acetaminophen (Tylenol) 650 mg PO TID [facility] Last Admin: 09/14/18 14:27 Dose: 650 mg Albuterol Sulfate (Ventolin) 2.5 mg NEB Q4H PRN PRN Reason: Dyspnea Aspirin (Ecotrin) 81 mg PO DAILY [facility] Last Admin: 09/13/18 09:09 Dose: 81 mg Atorvastatin Calcium (Lipitor) 40 mg PO HS [facility] Last Admin: 09/13/18 19:55 Dose: 40 mg Clonidine (Catapres) 0.1 mg PO Q6H PRN PRN Reason: SBP Greater Than 180 Docusate Sodium (Colace) 100 mg PO BID [facility] Last Admin: 09/14/18 08:49 Dose: 100 mg Vancomycin HCl 750 mg/ Sodium (Chloride) 250 mls @ 250 mls/hr IVPB 1100,2300 [facility] Last Admin: 09/14/18 11:30 Dose: 250 mls Sodium Chloride (Normal Saline 0.9%) 1,000 mls @ 75 mls/hr IV .[id number] [facility] Meropenem 1 gm/ Device 50 mls @ 100 mls/hr IVPB 0800,1600,2359 [facility] Melatonin (Melatonin) 1.5 mg PO HS [facility] Last Admin: 09/13/18 19:56 Dose: 1.5 mg Miscellaneous Medication (Pharmacy To Dose) 1 each IVPB PRN PRN PRN Reason: Pharmacy to dose Multivitamins (Theragran) 1 tab PO DAILY [facility] Last Admin: 09/14/18 08:49 Dose: 1 tab Ondansetron HCl (Zofran Odt) 4 mg PO Q6H PRN PRN Reason: Nausea/Vomiting Ondansetron HCl (Zofran) 4 mg IVP Q6H PRN PRN Reason: Nausea/Vomiting Last Admin: 09/13/18 15:08 Dose: 4 mg Oxybutynin Chloride (Ditropan) 15 mg PO HS [facility] Last Admin: 09/13/18 19:56 Dose: 15 mg Pantoprazole Sodium (Protonix) 40 mg PO BID [facility] Last Admin: 09/14/18 08:48 Dose: 40 mg Saccharomyces Boulardii (Florastor) 250 mg PO DAILY [facility] Last Admin: 09/14/18 08:48 Dose: 250 mg Sertraline HCl (Zoloft) 100 mg PO DAILY [facility] Last Admin: 09/14/18 08:52 Dose: Not Given Sodium Chloride (Flush - Normal Saline) 10 ml IVF PRN PRN PRN Reason: Saline Flush Last Admin: 09/12/18 07:56 Dose: 10 ml Tramadol HCl (Ultram) 50 mg PO Q6H PRN PRN Reason: Moderate Pain (4-6)
[2018-09-14] MEDS: Sodium Chloride 0.9% 1,000 ML IV SCH (16:04)
[2018-09-14] MEDS: MEROPENEM 1 GM/50 ML 1 GM in Premix Bag 1 BAG IVPB SCH ×2 (16:43→23:28)
[2018-09-14] MEDS: Atorvastatin Calcium 40 MG TAB PO SCH (20:23)
[2018-09-14] MEDS: Oxybutynin 5 MG TAB PO SCH (20:24)
[2018-09-14 22:18] LABS: Vancomycin, Trough 22.5 ug/mL
[2018-09-14] MEDS: Vancomycin HCl 500 MG in Sodium Chloride 0.9% 100 ML IVPB SCH (23:28)
[2018-09-14] MEDS: Melatonin 3 MG TAB PO SCH (23:32)
[2018-09-15] MEDS: Sodium Chloride 0.9% 1,000 ML IV SCH ×2 (05:30→15:12)
[2018-09-15] MEDS ORDERED: Famotidine/PF 20 mg/2ml Vial ONE (07:17)
[2018-09-15] MEDS ORDERED: Fentanyl 100 MCG/2 ML VIAL ONE ×2 (07:17→09:38)
[2018-09-15] MEDS ORDERED: Neomycin-Polymyxin 1 ML AMP ONE (07:20)
[2018-09-15] MEDS ORDERED: Ondansetron HCl/PF 4 MG/2 ML Vial IVP PRN (08:51)
[2018-09-15] MEDS: Acetaminophen 325 MG TAB PO SCH ×3 (09:00→20:16)
[2018-09-15] MEDS ORDERED: Fentanyl 100 MCG/2 ML VIAL SLOW IVP PRN (09:39)
--- NOTE | 2018-09-15 09:45 | OP ---
DATE OF PROCEDURE: 09/15/2018 PROCEDURE PERFORMED: Right hip wound irrigation and debridement with closure. PREOPERATIVE DIAGNOSIS: History of right hip revision arthroplasty, now with superficial wound dehiscence and superficial infection. POSTOPERATIVE DIAGNOSIS: History of right hip revision arthroplasty, now with superficial wound dehiscence and superficial infection. COMPLICATIONS: None. ESTIMATED BLOOD LOSS: Minimal. ANESTHESIA: General. IMPLANTS: None. INDICATIONS: Ms. 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 She has been indicated now for irrigation and debridement of her wound for superficial dehiscence with infection. She has been started on vancomycin. She does have Staph aureus on her cultures. Goal of surgery is to eradicate infection and allow wound healing without further complication. DESCRIPTION OF PROCEDURE: Ms. Leroy was identified in the preoperative holding area. Her correct extremity was marked. She was carried to the operating room. She was positioned supine. General anesthesia was induced. A multidisciplinary time-out was performed. The right lower extremity was prepped and draped in sterile fashion. We began the procedure with opening the patient's wound. We removed all previously placed sutures. At this point, we excised the previous incision tract for a new bleeding surface of skin edges. The posterior aspect of the wound was dehisced by approximately 3 cm. We tracked this deeply down to the subcutaneous tissue, but there was no extension beyond this. This did not reach the fascia level. We thoroughly irrigated with copious lavage. We then used a knife for sharp debridement as well as rongeur and curette. We took cultures prior to irrigation. We then again thoroughly irrigated with a Betadine lavage. Finally, we closed with the #2-0 nylon suture and 3-0 nylon suture in interrupted fashion. We had a good skin edge approximation. Sterile dressing was applied. The patient was taken to the recovery room in good condition without complication. Job ID: [id number]
[2018-09-15] MEDS: MEROPENEM 1 GM/50 ML 1 GM in Premix Bag 1 BAG IVPB SCH ×3 (10:49→22:50)
[2018-09-15] MEDS: Saccharomyces boulardii 250 MG CAP PO SCH (10:50)
[2018-09-15] MEDS: Multivit, Therapeutic 1 TAB PO SCH (10:50)
[2018-09-15] MEDS: Docusate 100 MG CAP PO SCH ×2 (10:50→20:17)
[2018-09-15 11:29] LABS: #Eosinphils 0.6 thou/uL (0.0-0.7); #Lymphocytes 0.8 thou/uL (1.20-3.40); #Monocytes 0.3 thou/uL (0.11-0.59); #Neutrophils 9.1 thou/uL (1.40-6.50); %Basophils 0.4 % (0.0-1.0); %Eosinophils 5.2 % (0.0-10.0); %Lymphocytes 7.5 % (21.0-51.0); %Monocytes 2.7 % (0.0-10.0); %Neutrophils 84.2 % (42.0-75.0); Hemoglobin 9.4 g/dL (12.0-16.0); Mean Corpuscular HGB CONC 31.7 g/dL (32.0-36.0); Mean Corpuscular Hemoglobin 30.7 pg (27.0-31.0); Mean Corpuscular Volume 96.7 fL (78.0-98.0); Mean Platelet Volume 7.8 fL (7.4-10.4); Platelet Count 299 thou/uL (130-400); RBC Distribution Width 16.3 % (11.5-14.5); Red Blood Cell (RBC) Count 3.04 mill/uL (4.20-5.40); White Blood Cell (WBC) Count 10.8 thou/uL (4.8-10.8)
[2018-09-15 11:58] LABS: Anion Gap 10 mmol/L (10-20); BUN (Urea Nitrogen) 30 mg/dL (9.8-20.1); Calc. Creatinine Clearance 3 mL/min (70-130); Calcium 8.3 mg/dL (7.8-10.44); Carbon Dioxide 25 mmol/L (23-31); Chloride 113 mmol/L (98-107); Estimated GFR-MDRD 62; Glucose 96 mg/dL (83-110); Potassium 3.4 mmol/L (3.5-5.1); Sodium 145 mmol/L (136-145)
[2018-09-15] MEDS: Vancomycin HCl 500 MG in Sodium Chloride 0.9% 100 ML IVPB SCH ×2 (12:27→23:13)
--- NOTE | 2018-09-15 16:26 | PDOC.PN ---
- Subjective Encounter Start Date: 09/15/18 Encounter Start Time: 16:23 Pt seen for followup re: hip abscess. No complaints. - Objective Resuscitation Status - Order Detail: 09/06/18 12:44 Resuscitation Status Routine Resuscitation Status: FULL: Full Resuscitation Vital Signs & Weight: Vital Signs (12 hours) Temp Pulse Resp BP Pulse Ox 09/15/18 16:00 98.0 F 68 20 113/61 100 09/15/18 12:32 97.4 F L 68 18 96/60 98 09/15/18 11:30 97.7 F 69 20 105/66 98 09/15/18 10:10 97.9 F 79 18 104/42 L 92 L Weight Weight 9 lb 7.2 oz Most Recent Monitor Data Heart Rate from ECG 70 NIBP 164/83 NIBP BP-Mean 110 Respiration from ECG 23 SpO2 99 I&O: 09/14/18 09/15/18 09/16/18 06:59 06:59 06:59 Intake Total 1550 2880 480 Output Total 1900 Balance -350 2880 480 Result Diagrams: 09/15/18 11:18 09/15/18 11:18 Phys Exam - Physical Examination Constitutional: NAD HEENT: moist MMs Neck: supple Respiratory: clear to auscultation bilateral Cardiovascular: RRR Gastrointestinal: soft Neurological: moves all 4 limbs Psychiatric: normal affect Dx/Plan (1) Abscess of hip Code(s): L02.419 - CUTANEOUS ABSCESS OF LIMB, UNSPECIFIED Status: Acute Comment: s/p procedure today, continue IV vancomycin. (2) Peptic ulcer hemorrhage Code(s): K27.4 - CHRONIC OR UNSP PEPTIC ULCER, SITE UNSP, WITH HEMORRHAGE Status: Acute Comment: continue PPI. Stable. (3) UTI (urinary tract infection) Status: Acute Comment: Pt is on meropenem, await sensitivities for GNR #2 and 3. (4) Dementia Code(s): F03.90 - UNSPECIFIED DEMENTIA WITHOUT BEHAVIORAL DISTURBANCE Status: Chronic Comment: stable (5) CAD (coronary artery disease) Code(s): I25.10 - ATHSCL HEART DISEASE OF [place] CORONARY ARTERY W/O ANG PCTRS Status: Chronic Comment: stable (6) Dyslipidemia Code(s): E78.5 - HYPERLIPIDEMIA, UNSPECIFIED Status: Chronic Comment: continue statin (7) Anemia due to acute blood loss Code(s): D62 - ACUTE POSTHEMORRHAGIC ANEMIA Status: Resolved - Plan * . Review of Systems - Review of Systems Respiratory: negative: Cough, Shortness of Breath, SOB with Excertion, Pleuritic Pain, Wheezing Cardiovascular: negative: chest pain, palpitations, orthopnea, paroxysmal nocturnal dyspnea, edema, light headedness - Medications/Allergies Allergies/Adverse Reactions: Allergies Allergy/AdvReac Type Severity Reaction Status Date / Time bacitracin Allergy Intermediate WELPS ON Verified 09/06/18 14:05 [From Neosporin SKIN ([id number])] neomycin Allergy Verified 09/06/18 14:05 [From Neosporin ([id number])] polymyxin B Allergy Verified 09/06/18 14:05 [From Neosporin ([id number]-[id number])] hydrocodone AdvReac Verified 09/13/18 11:39 Medications: Current Medications Acetaminophen (Tylenol) 650 mg PO TID [facility] Last Admin: 09/15/18 14:52 Dose: 650 mg Albuterol Sulfate (Ventolin) 2.5 mg NEB Q4H PRN PRN Reason: Dyspnea Atorvastatin Calcium (Lipitor) 40 mg PO [facility] Last Admin: 09/14/18 20:23 Dose: 40 mg Clonidine (Catapres) 0.1 mg PO Q6H PRN PRN Reason: SBP Greater Than 180 Docusate Sodium (Colace) 100 mg PO BID [facility] Last Admin: 09/15/18 10:50 Dose: 100 mg Fentanyl (Sublimaze) 25 mcg SLOW IVP Q2H PRN PRN Reason: Severe or breakthru pain Sodium Chloride (Normal Saline 0.9%) 1,000 mls @ 75 mls/hr IV .[id number] [facility] Last Admin: 09/15/18 15:12 Dose: 1,000 mls Meropenem 1 gm/ Device 50 mls @ 100 mls/hr IVPB 0800,1600,2359 [facility] Last Admin: 09/15/18 15:12 Dose: 50 mls Vancomycin HCl 500 mg/ Sodium (Chloride) 100 mls @ 100 mls/hr IVPB 1200,2359 [facility] Last Admin: 09/15/18 12:27 Dose: 100 mls Melatonin (Melatonin) 1.5 mg PO [facility] Last Admin: 09/14/18 23:32 Dose: Not Given Miscellaneous Medication (Pharmacy To Dose) 1 each IVPB PRN PRN PRN Reason: Pharmacy to dose Multivitamins (Theragran) 1 tab PO DAILY [facility] Last Admin: 09/15/18 10:50 Dose: 1 tab Ondansetron HCl (Zofran Odt) 4 mg PO Q6H PRN PRN Reason: Nausea/Vomiting Ondansetron HCl (Zofran) 4 mg IVP Q6H PRN PRN Reason: Nausea/Vomiting Last Admin: 09/13/18 15:08 Dose: 4 mg Oxybutynin Chloride (Ditropan) 15 mg PO [facility] Last Admin: 09/14/18 20:24 Dose: 15 mg Pantoprazole Sodium (Protonix) 40 mg PO BID [facility] Last Admin: 09/15/18 10:50 Dose: 40 mg Saccharomyces Boulardii (Florastor) 250 mg PO DAILY [facility] Last Admin: 09/15/18 10:50 Dose: 250 mg Sertraline HCl (Zoloft) 100 mg PO DAILY [facility] Last Admin: 09/15/18 10:50 Dose: 100 mg Sodium Chloride (Flush - Normal Saline) 10 ml IVF PRN PRN PRN Reason: Saline Flush Last Admin: 09/12/18 07:56 Dose: 10 ml Tramadol HCl (Ultram) 50 mg PO Q6H PRN PRN Reason: Moderate Pain (4-6)
[2018-09-15] MEDS ORDERED: Lidocaine 1% PF 5 ML VIAL ONE (16:53)
[2018-09-15] MEDS ORDERED: ePHEDrine 50 MG/ML VIAL ONE (16:53)
[2018-09-15] MEDS ORDERED: PROPOFOL 200 MG/20 ML VIAL ONE (16:53)
[2018-09-15] MEDS ORDERED: Succinylcholine Chloride 20 MG/ML 10 ml SYRINGE FS ONE (16:53)
[2018-09-15] MEDS ORDERED: Ondansetron PF 4 MG/2 ML Vial ONE (16:53)
[2018-09-15] MEDS ORDERED: Ketorolac Tromethamine 30 MG/ML VIAL ONE (16:53)
[2018-09-15] MEDS ORDERED: Metoclopramide HCl 10 MG/2 ML VIAL ONE (16:53)
[2018-09-15] MEDS: Atorvastatin Calcium 40 MG TAB PO SCH (20:17)
[2018-09-15] MEDS: Oxybutynin 5 MG TAB PO SCH (20:17)
[2018-09-15] MEDS: Melatonin 3 MG TAB PO SCH (20:18)
[2018-09-16 08:37] LABS: Anion Gap 9 mmol/L (10-20); BUN (Urea Nitrogen) 21 mg/dL (9.8-20.1); Calc. Creatinine Clearance 4 mL/min (70-130); Calcium 8.3 mg/dL (7.8-10.44); Carbon Dioxide 23 mmol/L (23-31); Chloride 113 mmol/L (98-107); Estimated GFR-MDRD 79; Glucose 85 mg/dL (83-110); Potassium 3.7 mmol/L (3.5-5.1); Sodium 141 mmol/L (136-145)
[2018-09-16 08:39] LABS: #Eosinphils 0.8 thou/uL (0.0-0.7); #Lymphocytes 0.6 thou/uL (1.20-3.40); #Monocytes 0.5 thou/uL (0.11-0.59); #Neutrophils 6.4 thou/uL (1.40-6.50); %Lymphocytes 7.6 % (21.0-51.0); %Monocytes 6.3 % (0.0-10.0); %Neutrophils 76.2 % (42.0-75.0); Hemoglobin 8.5 g/dL (12.0-16.0); Mean Corpuscular HGB CONC 32.1 g/dL (32.0-36.0); Mean Corpuscular Hemoglobin 30.8 pg (27.0-31.0); Mean Corpuscular Volume 96.1 fL (78.0-98.0); Mean Platelet Volume 8.5 fL (7.4-10.4); Platelet Count 268 thou/uL (130-400); RBC Distribution Width 16.2 % (11.5-14.5); Red Blood Cell (RBC) Count 2.75 mill/uL (4.20-5.40); White Blood Cell (WBC) Count 8.4 thou/uL (4.8-10.8)
[2018-09-16] MEDS: MEROPENEM 1 GM/50 ML 1 GM in Premix Bag 1 BAG IVPB SCH ×3 (09:00→22:45)
[2018-09-16] MEDS: Sodium Chloride 0.9% 1,000 ML IV SCH (09:00)
[2018-09-16] MEDS: Multivit, Therapeutic 1 TAB PO SCH (09:05)
[2018-09-16] MEDS: Docusate 100 MG CAP PO SCH ×2 (09:05→20:34)
[2018-09-16] MEDS: Saccharomyces boulardii 250 MG CAP PO SCH (09:05)
[2018-09-16] MEDS: Acetaminophen 325 MG TAB PO SCH ×3 (09:05→20:34)
--- NOTE | 2018-09-16 11:08 | PDOC.PN ---
- Subjective Encounter Start Date: 09/16/18 Encounter Start Time: 10:30 Patient seen and examined for GI bleeding. Feels better. No CP/fever. No new complaints. No overnight events - Objective Resuscitation Status - Order Detail: 09/06/18 12:44 Resuscitation Status Routine Resuscitation Status: FULL: Full Resuscitation MAR Reviewed: Yes Vital Signs & Weight: Vital Signs (12 hours) Temp Pulse Resp BP Pulse Ox 09/16/18 07:29 99.3 F 81 16 152/57 H 97 09/16/18 04:00 97.7 F 78 18 136/66 96 09/16/18 00:00 98.2 F 79 18 101/49 L 97 Weight Weight 9 lb 7.2 oz Most Recent Monitor Data Heart Rate from ECG 70 NIBP 164/83 NIBP BP-Mean 110 Respiration from ECG 23 SpO2 99 I&O: 09/15/18 09/16/18 09/17/18 06:59 06:59 06:59 Intake Total 2880 3590 Balance 2880 3590 Result Diagrams: 09/16/18 07:57 09/16/18 07:57 Additional Labs: Microbiology 09/13/18 12:10 Urine Straight Catheter Urine Culture - Final Escherichia coli Gram Negative Micheal#2 Gram Negative Micheal#3 09/13/18 03:00 Hip - Abscess Bacterial Culture - Final Methicillin resistant S.aureus Morganella morganii ssp darya Escherichia coli 09/15/18 08:43 Hip - Wound Bacterial Culture - Preliminary 09/15/18 08:43 Hip - Wound Staphylococcus aureus Phys Exam - Physical Examination Constitutional: NAD Respiratory: no wheezing, no rhonchi Cardiovascular: RRR, no rub Gastrointestinal: soft, non-tender, positive bowel sounds Musculoskeletal: no edema Neurological: moves all 4 limbs Dx/Plan - Plan DVT proph w/SCDs IMPRESSION: Duodenal ulcer with hemorrhage - Eliquis discontinued Par Afib - in SR - not a candidate for anticoag due to GI bleed Hypotension due to GI bleed - improved UTI (POA - yes) Acute blood loss Anemia s/p 4 units PRBC Superficial infection/wound dehiscence from recent Rt hip surgery - s/p I&D CAD Recent hip surgery HLD Depression - mild - stable Iron deficiency PLAN: Cont Vancomycin/Meropenem Monitor Vancomycin level Cont PPI Cont wound care Cont other meds as below PT/OT AM labs Review of Systems - Review of Systems Respiratory: negative: Cough, Dry, Shortness of Breath, Hemoptysis, SOB with Excertion, Pleuritic Pain, Sputum, Wheezing Cardiovascular: negative: chest pain, palpitations, orthopnea, paroxysmal nocturnal dyspnea, edema, light headedness, other Gastrointestinal: negative: Nausea, Vomiting, Abdominal Pain, Diarrhea, Constipation, Melena, Hematochezia, Other - Medications/Allergies Allergies/Adverse Reactions: Allergies Allergy/AdvReac Type Severity Reaction Status Date / Time bacitracin Allergy Intermediate WELPS ON Verified 09/06/18 14:05 [From Neosporin SKIN ([id number])] neomycin Allergy Verified 09/06/18 14:05 [From Neosporin ([id number])] polymyxin B Allergy Verified 09/06/18 14:05 [From Neosporin ([id number]-cov-eflrm)] hydrocodone AdvReac Verified 09/13/18 11:39 Medications: Current Medications Acetaminophen (Tylenol) 650 mg PO TID [facility] Last Admin: 09/16/18 09:05 Dose: 650 mg Albuterol Sulfate (Ventolin) 2.5 mg NEB Q4H PRN PRN Reason: Dyspnea Atorvastatin Calcium (Lipitor) 40 mg PO HS [facility] Last Admin: 09/15/18 20:17 Dose: 40 mg Clonidine (Catapres) 0.1 mg PO Q6H PRN PRN Reason: SBP Greater Than 180 Docusate Sodium (Colace) 100 mg PO BID [facility] Last Admin: 09/16/18 09:05 Dose: 100 mg Fentanyl (Sublimaze) 25 mcg SLOW IVP Q2H PRN PRN Reason: Severe or breakthru pain Meropenem 1 gm/ Device 50 mls @ 100 mls/hr IVPB 0800,1600,2359 [facility] Last Admin: 09/16/18 09:00 Dose: 50 mls Vancomycin HCl 500 mg/ Sodium (Chloride) 100 mls @ 100 mls/hr IVPB 1200,2359 [facility] Last Admin: 09/15/18 23:13 Dose: 100 mls Melatonin (Melatonin) 1.5 mg PO HS [facility] Last Admin: 09/15/18 20:18 Dose: Not Given Miscellaneous Medication (Pharmacy To Dose) 1 each IVPB PRN PRN PRN Reason: Pharmacy to dose Multivitamins (Theragran) 1 tab PO DAILY [facility] Last Admin: 09/16/18 09:05 Dose: 1 tab Ondansetron HCl (Zofran Odt) 4 mg PO Q6H PRN PRN Reason: Nausea/Vomiting Ondansetron HCl (Zofran) 4 mg IVP Q6H PRN PRN Reason: Nausea/Vomiting Last Admin: 09/13/18 15:08 Dose: 4 mg Oxybutynin Chloride (Ditropan) 15 mg PO HS [facility] Last Admin: 09/15/18 20:17 Dose: 15 mg Pantoprazole Sodium (Protonix) 40 mg PO BID [facility] Last Admin: 09/16/18 09:05 Dose: 40 mg Saccharomyces Boulardii (Florastor) 250 mg PO DAILY [facility] Last Admin: 09/16/18 09:05 Dose: 250 mg Sertraline HCl (Zoloft) 100 mg PO DAILY [facility] Last Admin: 09/16/18 09:05 Dose: 100 mg Sodium Chloride (Flush - Normal Saline) 10 ml IVF PRN PRN PRN Reason: Saline Flush Last Admin: 09/12/18 07:56 Dose: 10 ml Tramadol HCl (Ultram) 50 mg PO Q6H PRN PRN Reason: Moderate Pain (4-6)
[2018-09-16 12:16] VITALS: BMI 26.0
[2018-09-16] MEDS: Vancomycin HCl 500 MG in Sodium Chloride 0.9% 100 ML IVPB SCH ×2 (12:42→23:09)
[2018-09-16] MEDS: Oxybutynin 5 MG TAB PO SCH (20:34)
[2018-09-16] MEDS: Melatonin 3 MG TAB PO SCH (20:34)
[2018-09-16] MEDS: Atorvastatin Calcium 40 MG TAB PO SCH (20:34)
[2018-09-17 04:55] LABS: #Eosinphils 0.9 thou/uL (0.0-0.7); #Lymphocytes 0.7 thou/uL (1.20-3.40); #Monocytes 0.6 thou/uL (0.11-0.59); %Basophils 0.1 % (0.0-1.0); %Lymphocytes 9.7 % (21.0-51.0); %Monocytes 8.4 % (0.0-10.0); %Neutrophils 68.7 % (42.0-75.0); Hemoglobin 8.6 g/dL (12.0-16.0); Mean Corpuscular HGB CONC 31.9 g/dL (32.0-36.0); Mean Corpuscular Hemoglobin 30.5 pg (27.0-31.0); Mean Corpuscular Volume 95.5 fL (78.0-98.0); Platelet Count 251 thou/uL (130-400); RBC Distribution Width 16.1 % (11.5-14.5); Red Blood Cell (RBC) Count 2.82 mill/uL (4.20-5.40); White Blood Cell (WBC) Count 7.3 thou/uL (4.8-10.8)
[2018-09-17 05:16] LABS: Anion Gap 8 mmol/L (10-20); BUN (Urea Nitrogen) 13 mg/dL (9.8-20.1); Calc. Creatinine Clearance 66 mL/min (70-130); Calcium 8.7 mg/dL (7.8-10.44); Carbon Dioxide 24 mmol/L (23-31); Chloride 111 mmol/L (98-107); Estimated GFR-MDRD 88; Glucose 82 mg/dL (83-110); Potassium 3.4 mmol/L (3.5-5.1); Sodium 140 mmol/L (136-145)
[2018-09-17] MEDS: MEROPENEM 1 GM/50 ML 1 GM in Premix Bag 1 BAG IVPB SCH ×3 (10:00→22:54)
[2018-09-17] MEDS: Potassium Chloride 10 MEQ TAB PO SCH ×2 (10:03→16:57)
[2018-09-17] MEDS: Acetaminophen 325 MG TAB PO SCH ×3 (10:03→20:25)
[2018-09-17] MEDS: Saccharomyces boulardii 250 MG CAP PO SCH (10:04)
[2018-09-17] MEDS: Multivit, Therapeutic 1 TAB PO SCH (10:04)
[2018-09-17] MEDS: Docusate 100 MG CAP PO SCH ×2 (10:04→20:26)
[2018-09-17 11:39] LABS: Vancomycin, Trough 16.6 ug/mL
--- NOTE | 2018-09-17 12:13 | PDOC.PN ---
- Subjective Encounter Start Date: 09/17/18 Encounter Start Time: 11:00 Patient seen and examined for GI bleeding/Hip infectio/UTI. No fever/chills/GI bleed. No new complaints. No overnight events - Objective Resuscitation Status - Order Detail: 09/06/18 12:44 Resuscitation Status Routine Resuscitation Status: FULL: Full Resuscitation MAR Reviewed: Yes Vital Signs & Weight: Vital Signs (12 hours) Temp Pulse Resp BP Pulse Ox 09/17/18 12:00 98.1 F 67 18 145/72 H 95 09/17/18 08:00 93 L 09/17/18 07:29 98.5 F 71 18 161/57 H 93 L Weight Admit Weight 168 lb 11.2 oz Weight 152 lb 7 oz Most Recent Monitor Data Heart Rate from ECG 70 NIBP 164/83 NIBP BP-Mean 110 Respiration from ECG 23 SpO2 99 I&O: 09/16/18 09/17/18 09/18/18 06:59 06:59 06:59 Intake Total 3590 1600 100 Balance 3590 1600 100 Result Diagrams: 09/17/18 04:33 09/17/18 04:33 Phys Exam - Physical Examination Constitutional: NAD Respiratory: no wheezing, no rhonchi Cardiovascular: RRR, no rub Gastrointestinal: soft, non-tender, positive bowel sounds Musculoskeletal: no edema Neurological: moves all 4 limbs Dx/Plan - Plan DVT proph w/SCDs IMPRESSION: Duodenal ulcer with hemorrhage -s/p EGD - Eliquis discontinued Par Afib - in SR - not a candidate for anticoag due to GI bleed Hypotension due to GI bleed - improved E coli UTI (POA - yes) Acute blood loss anemia s/p 4 units PRBC MRSA Superficial infection/wound dehiscence from recent Rt hip surgery - s/p I&D CAD Hypokalemia Recent hip surgery HLD Depression - mild - stable Iron deficiency PLAN: Consult ID for MRSA infection/UTI Replace Potassium Cont Vancomycin/Meropenem with level monitoring Cont PPI and other meds as below Cont wound care PT/OT Start low dose Aspirin DC to Rehab in AM if stable Review of Systems - Review of Systems Respiratory: negative: Cough, Dry, Shortness of Breath, Hemoptysis, SOB with Excertion, Pleuritic Pain, Sputum, Wheezing Cardiovascular: negative: chest pain, palpitations, orthopnea, paroxysmal nocturnal dyspnea, edema, light headedness, other Gastrointestinal: negative: Nausea, Vomiting, Abdominal Pain, Diarrhea, Constipation, Melena, Hematochezia, Other - Medications/Allergies Allergies/Adverse Reactions: Allergies Allergy/AdvReac Type Severity Reaction Status Date / Time bacitracin Allergy Intermediate WELPS ON Verified 09/06/18 14:05 [From Neosporin SKIN ([id number])] neomycin Allergy Verified 09/06/18 14:05 [From Neosporin ([id number])] polymyxin B Allergy Verified 09/06/18 14:05 [From Neosporin ([id number])] hydrocodone AdvReac Verified 09/13/18 11:39 Medications: Current Medications Acetaminophen (Tylenol) 650 mg PO TID [facility] Last Admin: 09/17/18 10:03 Dose: 650 mg Albuterol Sulfate (Ventolin) 2.5 mg NEB Q4H PRN PRN Reason: Dyspnea Atorvastatin Calcium (Lipitor) 40 mg PO [facility] Last Admin: 09/16/18 20:34 Dose: 40 mg Clonidine (Catapres) 0.1 mg PO Q6H PRN PRN Reason: SBP Greater Than 180 Docusate Sodium (Colace) 100 mg PO BID [facility] Last Admin: 09/17/18 10:04 Dose: 100 mg Fentanyl (Sublimaze) 25 mcg SLOW IVP Q2H PRN PRN Reason: Severe or breakthru pain Meropenem 1 gm/ Device 50 mls @ 100 mls/hr IVPB 0800,1600,2359 [facility] Last Admin: 09/17/18 10:00 Dose: 50 mls Vancomycin HCl 500 mg/ Sodium (Chloride) 100 mls @ 100 mls/hr IVPB 1200,2359 [facility] Last Admin: 09/16/18 23:09 Dose: 100 mls Melatonin (Melatonin) 1.5 mg PO [facility] Last Admin: 09/16/18 20:34 Dose: Not Given Miscellaneous Medication (Pharmacy To Dose) 1 each IVPB PRN PRN PRN Reason: Pharmacy to dose Multivitamins (Theragran) 1 tab PO DAILY [facility] Last Admin: 09/17/18 10:04 Dose: 1 tab Ondansetron HCl (Zofran Odt) 4 mg PO Q6H PRN PRN Reason: Nausea/Vomiting Ondansetron HCl (Zofran) 4 mg IVP Q6H PRN PRN Reason: Nausea/Vomiting Last Admin: 09/13/18 15:08 Dose: 4 mg Oxybutynin Chloride (Ditropan) 15 mg PO HS [facility] Last Admin: 09/16/18 20:34 Dose: 15 mg Pantoprazole Sodium (Protonix) 40 mg PO BID [facility] Last Admin: 09/17/18 10:04 Dose: 40 mg Potassium Chloride (Klor-Con 10) 10 meq PO BID-[facility] Last Admin: 09/17/18 10:03 Dose: 10 meq Saccharomyces Boulardii (Florastor) 250 mg PO DAILY [facility] Last Admin: 09/17/18 10:04 Dose: 250 mg Sertraline HCl (Zoloft) 100 mg PO DAILY [facility] Last Admin: 09/17/18 10:04 Dose: 100 mg Sodium Chloride (Flush - Normal Saline) 10 ml IVF PRN PRN PRN Reason: Saline Flush Last Admin: 09/17/18 10:01 Dose: 10 ml Tramadol HCl (Ultram) 50 mg PO Q6H PRN PRN Reason: Moderate Pain (4-6)
[2018-09-17] MEDS ORDERED: Bisacodyl 10 MG SUPP PR PRN (12:23)
[2018-09-17] MEDS: Vancomycin HCl 500 MG in Sodium Chloride 0.9% 100 ML IVPB SCH (12:26)
[2018-09-17] MEDS ORDERED: Senokot S 8.6-50 MG TAB PO SCH (12:30)
[2018-09-17] MEDS: Polyethylene Glycol 3350 17 GM Packet PO SCH ×2 (14:48→14:50)
[2018-09-17] MEDS ORDERED: PROVENTIL INHALER 6.7 G (200 INHALATIONS) INH PRN (16:24)
[2018-09-17] MEDS: Senokot S 8.6-50 MG TAB PO SCH (20:26)
[2018-09-17] MEDS: Melatonin 3 MG TAB PO SCH (20:26)
[2018-09-17] MEDS: Oxybutynin 5 MG TAB PO SCH (20:26)
[2018-09-17] MEDS: Atorvastatin Calcium 40 MG TAB PO SCH (20:26)
[2018-09-18] MEDS: Vancomycin HCl 500 MG in Sodium Chloride 0.9% 100 ML IVPB SCH ×2 (00:14→11:39)
[2018-09-18 05:43] LABS: #Eosinphils 0.9 thou/uL (0.0-0.7); #Monocytes 0.6 thou/uL (0.11-0.59); #Neutrophils 4.3 thou/uL (1.40-6.50); %Basophils 0.3 % (0.0-1.0); %Eosinophils 12.9 % (0.0-10.0); %Lymphocytes 14.3 % (21.0-51.0); %Monocytes 8.2 % (0.0-10.0); %Neutrophils 64.3 % (42.0-75.0); Hemoglobin 8.9 g/dL (12.0-16.0); Mean Corpuscular HGB CONC 32.3 g/dL (32.0-36.0); Mean Corpuscular Hemoglobin 30.6 pg (27.0-31.0); Mean Corpuscular Volume 94.7 fL (78.0-98.0); Mean Platelet Volume 8.3 fL (7.4-10.4); Platelet Count 237 thou/uL (130-400); RBC Distribution Width 15.9 % (11.5-14.5); Red Blood Cell (RBC) Count 2.89 mill/uL (4.20-5.40); White Blood Cell (WBC) Count 6.6 thou/uL (4.8-10.8)
[2018-09-18 06:13] LABS: Anion Gap 9 mmol/L (10-20); BUN (Urea Nitrogen) 15 mg/dL (9.8-20.1); Calc. Creatinine Clearance 72 mL/min (70-130); Calcium 8.8 mg/dL (7.8-10.44); Carbon Dioxide 26 mmol/L (23-31); Chloride 110 mmol/L (98-107); Estimated GFR-MDRD Greater than 90; Glucose 94 mg/dL (83-110); Magnesium 1.6 mg/dL (1.6-2.6); Potassium 3.5 mmol/L (3.5-5.1); Sodium 141 mmol/L (136-145)
[2018-09-18] MEDS ORDERED: Magnesium 2 GM/50 ML BAG (IN WATER) IVPB SCH (07:30)
[2018-09-18] MEDS ORDERED: Magnesium Sulfate 2 GM in Sodium Chloride 0.9% 100 ML IVPB SCH (07:30)
[2018-09-18] MEDS: MEROPENEM 1 GM/50 ML 1 GM in Premix Bag 1 BAG IVPB SCH (07:43)
[2018-09-18] MEDS: Senokot S 8.6-50 MG TAB PO SCH (07:43)
[2018-09-18] MEDS: Multivit, Therapeutic 1 TAB PO SCH (07:44)
[2018-09-18] MEDS: Potassium Chloride 10 MEQ TAB PO SCH ×2 (07:44→16:40)
[2018-09-18] MEDS: Saccharomyces boulardii 250 MG CAP PO SCH (07:44)
[2018-09-18] MEDS: Docusate 100 MG CAP PO SCH (07:44)
[2018-09-18] MEDS: Acetaminophen 325 MG TAB PO SCH ×2 (07:45→15:17)
[2018-09-18] MEDS ORDERED: Aspirin 81 mg Enteric Coated Tablet PO SCH (09:00)
[2018-09-18] MEDS ORDERED: Polyethylene Glycol 3350 17 GM Packet PO SCH (09:00)
[2018-09-18] MEDS ORDERED: Rifampin 300 MG CAP PO SCH (10:00)
[2018-09-18] MEDS ORDERED: cefTRIAXone\\ROCEPHIN 2 GM in Sodium Chloride 0.9% 100 ML IVPB SCH (10:00)
--- NOTE | 2018-09-18 10:21 | PRG ---
DATE OF SERVICE: 09/18/2018 SUBJECTIVE: Haydee is an 88-year-old female, who is postop day 3 from a right superficial hip incision, drainage, washout, and primary closure. Her culture did come back with methicillin-resistant Staph aureus, I believe. Her current antibiotic regimen consist of meropenem and vancomycin. I thinks she is planned for transfer to rehab or skilled facility today or tomorrow. PHYSICAL EXAMINATION: Her incision is relatively clean, there is no purulence or gross drainage, no erythema is noted. Temperature 98.2, pulse 71. She is alert and oriented to person, place, time, situation, and responsive. Internal and external rotation of femur is non-provocative for pain. IMPRESSION: Superficial skin infection, methicillin-resistant Staphylococcus aureus. PLAN: Continue antibiotics. Stable for discharge from Orthopedic standpoint. She will follow up in clinic in 7 days. Job ID: [id number]
--- NOTE | 2018-09-18 12:04 | CON ---
DATE OF CONSULTATION: 09/18/2018 REASON FOR CONSULTATION: Right hip infection. HISTORY OF PRESENT ILLNESS: An 88-year-old, who has a history of coronary artery disease, hyperlipidemia, and previous right hip replacement as well as upper GI bleed from gastric ulcer, who developed signs of infection of right hip. The patient has had recurrent dislocations of the right hip and has had history of previous infection treated many years ago. Dr. Cross did a washout with retention of the implant. Cultures have yielded the organisms discussed below. Currently, she is awake. She has minimal pain and no headaches, visual symptoms, sore throat, odynophagia, or dysphagia. No cough or sputum production. No chest pain. No abdominal pain or diarrhea. No genitourinary symptoms. No other joint symptoms. No neurological symptoms. PAST MEDICAL HISTORY: Coronary artery disease; hyperlipidemia; gastric ulcer, which required injection of epinephrine and cauterization. PAST SURGICAL HISTORY: Appendectomy, bilateral TKRs, bilateral hip replacements with revision, prior infection of the right hip replacement, colon resection partial. FAMILY HISTORY: Noncontributory. SOCIAL HISTORY: Quit smoking 37 years ago. Retired. Lives by herself in [place]. Has one son around. Does not drink alcoholic beverages. Had been independent until this admission. ALLERGIES: BACITRACIN, NEOMYCIN, POLYMYXIN. CURRENT MEDICATIONS: 1. Tylenol. 2. Ventolin. 3. Proventil. 4. Ecotrin. 5. Lipitor. 6. Dulcolax. 7. Catapres. 8. Colace. 9. Sublimaze. 10. Melatonin. 11. Meropenem. 12. Ondansetron. 13. Ditropan. 14. Protonix. 15. MiraLAX. 16. Florastor. 17. Zoloft. 18. Vancomycin. PHYSICAL EXAMINATION: VITAL SIGNS: T-max 99.3, blood pressure 150/60, pulse 71, respirations 14, O2 saturation 96%. SKIN: Shows the area in the right hip on admission, there was quite a bit of erythema surrounding it. Still stitches in place. Some drainage. Currently, the incision is dry and erythema has subsided. No drainage noted. She has a peripheral IV access and is voiding in the diaper. HEENT: Ocular movements conjugate. Sclerae white. Pupils are equal. Oral cavity normal. Numerous missing teeth. The remainder ones with some decay. NECK: Supple. No jugular venous distention or carotid bruits. LUNGS: Symmetric, clear breath sounds. HEART: S1 and S2. Regular rate. No S3 or S4. ABDOMEN: Soft, not distended or tender. No ascites. No bladder distention. EXTREMITIES: No other joint inflammatory process noted. Pulse is 1+ in dorsalis pedis. NEUROLOGIC: Nonfocal including cognitive function. Good recollection. Speech is normal. LABORATORY DATA: White cell count is 18,000, now down to 6.6; hemoglobin 8.9; MCV 94; platelets 237. The differential with neutrophil percentage down from 76 to 64. INR 1.5. Sodium 141, creatinine 0.59, iron 38. Liver profile normal. Albumin 2.2. Urinalysis with 21 to 50 wbc's. Vancomycin trough 22. Microbiology with MRSA; Morganella with resistance to amoxicillin, ampicillin, and Bactrim; and E. coli with victoria-susceptibility. IMAGING STUDIES: There is an abdomen x-ray from 5 days ago with no abnormality noted. There is a hip x-ray with avulsion fracture of right lesser trochanter, right total hip prosthesis. ASSESSMENT: Coronary artery disease, multiple joint replacements and the loosening of the right hip with prior infection. The patient had revision and then developed a postop infection, had a washout with retention of the implant. It did not appear to have extension beyond the subcutaneous tissues, so it was not reached beyond the fascia level. DISCUSSION: In view of the multiple complications, the history of prior infection and the high risk for deep penetration, which might have been microscopic, we will recommend continuation of protracted therapy, PICC line placement, vancomycin, Rocephin, and rifampin until October 31. After that, then oral rifampin and doxycycline for another month and a half and then suppressive doxycycline for few months and then stop. She is still at risk for failure of the implant, eventually losing the implant. PICC line placement, discussed potential adverse reactions with the patient, particularly skin hypersensitivity reaction, diarrhea, and PICC line associated complications. The patient understood and agreed with management and recommendations. Job ID: [id number]
--- NOTE | 2018-09-18 15:03 | SPC ---
Ultrasound and Fluoroscopic guidedleftupper extremity double lumen PICC placement: 07/15/2018 HISTORY: Need for central vascular access. FINDINGS: Informed consent obtained prior to the procedure. Left antecubital fossa prepped and draped in normal sterile fashion. Skin overlying thebasilicvein anesthetized with 1% buffered lidocaine. With direct sonographic guidan ce, vascular access is obtained via the basilicvein and an 0.018in wire was advanced to the SVC. Intravascular length is calculated at 41 cm and of the PICC is cut accordingly. Needle is removed and replaced with a peel-away sheath. The PICC was advanced over the wire. Wire and peel-away sheath were removed. The tip of the catheter overlies the SVC. The port flushes well and the catheter is ready for use. Exposure data: 0.1 minutes of fluoroscopic time 66 mGy per centimeter squared IMPRESSION: Successful ultrasound guided placement of a leftupper extremity PICC.
--- NOTE | 2018-09-18 16:58 | DIS ---
DATE OF ADMISSION: 09/06/2018 DATE OF DISCHARGE: 09/18/2018 DISCHARGE DISPOSITION: To inpatient rehabilitation. The patient was seen and examined on the day of discharge. Denies any new complaints. No fever, chills, nausea, vomiting, or diarrhea reported. Vital signs on the day of discharge showed temperature of 97.5, respirations of 18, pulse rate of 69 with a blood pressure of 147/73. DISCHARGE MEDICATIONS: IV vancomycin with 2 g ceftriaxone daily and oral rifampin 300 mg twice daily until October 31. The patient will require oral rifampin and doxycycline for another month and a half, and then suppressive doxycycline for few months and then stop per Dr. Dhillon. PICC line has been placed. Lasix has been changed to as needed due to renal failure. Protonix has been added. All other home medications were left unchanged. FOLLOWUP: 1. Follow up with Dr. Cross in 1 week. 2. Follow up with Infectious Disease, Dr. Dhillon in 2 to 3 weeks. 3. Follow up with Gastroenterology, Dr. Snyder in 2 weeks. INPATIENT PROCEDURES: On 15 Sep 2018, the patient underwent right hip wound irrigation and debridement with closure. On 07 Sep 2018, the patient underwent EGD that showed duodenal ulcer with visible vessel. This was injected with epinephrine and then cauterized. On 08 Sep 2018, the patient underwent EGD to control hemorrhage. BRIEF HOSPITAL COURSE: The patient is an 88-year-old female with recent right hip surgery, presented to the hospital with hematemesis. Please refer to the history and physical for further details. The patient was admitted to the intermediate care unit with a diagnosis of GI bleeding. She received a total of 4 units PRBC. She was started on IV Protonix along with IV fluids. She underwent EGD as discussed above for control of hemorrhage. She was then sent to the medical floor. The patient started having some drainage from the right hip surgical wound. For this reason, she was evaluated by Dr. Cross. She underwent I and D as discussed above. Cultures from the wound showed MRSA along with E. coli and Morganella. She was evaluated by Infectious Disease and will require long-term antibiotics. PICC line was placed today. The patient was diagnosed with E. coli infection at the rehabilitation prior to admission. Repeat urine cultures were done this admission that showed E. coli along with other gram-negative rods. The patient appears stable for discharge. FINAL DIAGNOSES: 1. Gastrointestinal bleeding secondary to duodenal ulcer, status post esophagogastroduodenoscopy. Please note that Eliquis was recently started at the rehab. The Eliquis has been discontinued. 2. Paroxysmal atrial fibrillation, in sinus rhythm. The patient is not a candidate for anticoagulation due to gastrointestinal bleed. 3. Hypotension secondary to gastrointestinal bleed. 4. Escherichia coli urinary tract infection, present on admission. 5. Acute blood loss anemia, status post 4 units of PRBC. 6. Methicillin-resistant Staphylococcus aureus superficial infection/wound dehiscence from the recent right hip surgery, status post irrigation and drainage. 7. Coronary artery disease. 8. Hypokalemia, replaced. 9. Recent hip surgery. 10. Hyperlipidemia. 11. Depression mild, stable. 12. Iron deficiency. TIME SPENT WITH PATIENT: Total time coordinating the discharge of this patient was 40 minutes. Job ID: [id number]
[2018-09-18 20:56] VITALS: BP 172/68; TEMP 98.4
== END 2018-09-18 21:00 | DRG 356 ==
LOC: ERS 10:06 → IMCU/EMU 13:56 → T4-A 09-11 22:40
PROVIDERS: ADMIT Internal Medicine; ATTEND Internal Medicine
PROC: 0W3P8ZZ Control Bleeding in Gastrointestinal Tract, Via Natural or Artificial Opening Endoscopic (ICD-10-PCS; 2018-09-07)
PROC: 3E0G8GC Introduction of Other Therapeutic Substance into Upper GI, Via Natural or Artificial Opening Endoscopic (ICD-10-PCS; 2018-09-07)
PROC: 0W3P8ZZ Control Bleeding in Gastrointestinal Tract, Via Natural or Artificial Opening Endoscopic (ICD-10-PCS; 2018-09-08)
PROC: 0J9L0ZZ Drainage of Right Upper Leg Subcutaneous Tissue and Fascia, Open Approach (ICD-10-PCS; principal; 2018-09-15)
PROC: 0JBL0ZZ Excision of Right Upper Leg Subcutaneous Tissue and Fascia, Open Approach (ICD-10-PCS; 2018-09-15)
PROC: 02HV33Z Insertion of Infusion Device into Superior Vena Cava, Percutaneous Approach (ICD-10-PCS; 2018-09-18)
PROC: B548ZZA Ultrasonography of Superior Vena Cava, Guidance (ICD-10-PCS; 2018-09-18)
DX: K26.4 Chronic or unspecified duodenal ulcer with hemorrhage (principal); R57.1 Hypovolemic shock; D62 Acute posthemorrhagic anemia; T81.31XA Disruption of external operation (surgical) wound, not elsewhere classified, initial encounter; N39.0 Urinary tract infection, site not specified; I25.10 Atherosclerotic heart disease of native coronary artery without angina pectoris; E78.5 Hyperlipidemia, unspecified; D72.829 Elevated white blood cell count, unspecified; E61.1 Iron deficiency; F03.90 Unspecified dementia, unspecified severity, without behavioral disturbance, psychotic disturbance, mood disturbance, and anxiety; I48.0 Paroxysmal atrial fibrillation; B96.20 Unspecified Escherichia coli [E. coli] as the cause of diseases classified elsewhere; B95.62 Methicillin resistant Staphylococcus aureus infection as the cause of diseases classified elsewhere; E87.6 Hypokalemia; Z79.82 Long term (current) use of aspirin; Z96.653 Presence of artificial knee joint, bilateral; Z96.643 Presence of artificial hip joint, bilateral
CPT/HCPCS: 36415; 36430; 36569; 74018; 80048; 80053; 80202; 81001; 82728; 83540; 83550; 83605; 83735; 85014; 85018; 85025; 85049; 85610; 85730; 86850; 86870; 86900; 86901; 86905; 86922; 87070; 87077; 87086; 87186; 87205; 93005; 94760; 96360; 96361; C9113; J0131; J0171; J0696; J1885; J2001; J2185; J2405; J2704; J2765; J3010; J3370; J3475; J3490; J7050; P9016; S0028

== ENCOUNTER 2019-01-19 15:40 | Outpatient (CLI) | payer MEDICARE ==
--- NOTE | 2019-01-19 16:22 | PRG ---
DATE OF SERVICE: 01/19/2019 HISTORY: Ms. Haydee Leroy is a very pleasant 88-year-old last seen in the [facility]ound Center on 08/11/2018 for 2 ulcerations of the right lateral ankle. These ulcerations have healed completely. Today, the patient presents with an ulceration of the right heel. The patient states that she was seen by Dr. Vaughan and at this time, referred to the Wound Center for further evaluation and treatment. The patient has no other complaints today. She denies any fever or chills. The patient states that she has been treating the ulceration of her right heel with bacitracin. PHYSICAL EXAMINATION: VITAL SIGNS: Temperature 97.8, pulse 71, respirations 18, and blood pressure 130/61. EXTREMITIES: An ulceration of the right heel is present, which measures approximately 0.5 x 0.5 cm. Necrotic and nonviable tissue present within the wound margins was debrided with an excisional full-thickness debridement with the use of a curette and scissors. No purulent drainage is associated with the wound. No erythema of the skin surrounding the wound is present. No maceration of the skin of the periwound is noted. No significant edema of the right foot or lower leg is present on exam today. ASSESSMENT AND PLAN: 1. Right heel ulceration as described above. Orders will be transmitted to Home Health for dressing changes of Medihoney and Mepilex Border 3 times per week after cleansing and irrigation. I will see Ms. Leroy again in 2 weeks. The patient understands and is in agreement with the preceding treatment plan. 2. Peripheral vascular disease. 3. Obstructive sleep apnea. 4. History of methicillin-resistant Staphylococcus aureus. Job ID: [id number]
[2019-01-19] MEDS ORDERED: Sodium Chloride 0.9% 15 ML NEB ONE (17:12)
[2019-01-19] MEDS ORDERED: Lidocaine 2% PF 100 mg/5 ml Syringe ONE (17:12)
== END 2019-01-19 15:41 | disposition home or self-care (01) ==
LOC: WCC 15:40
PROVIDERS: ATTEND Family Medicine
DX: L97.419 Non-pressure chronic ulcer of right heel and midfoot with unspecified severity (principal); I73.9 Peripheral vascular disease, unspecified; G47.33 Obstructive sleep apnea (adult) (pediatric); Z86.14 Personal history of Methicillin resistant Staphylococcus aureus infection
CPT/HCPCS: 11042; G0463; 99213; A4218; J2001

== ENCOUNTER 2019-02-02 14:28 | Outpatient (CLI) | payer MEDICARE ==
--- NOTE | 2019-02-02 14:29 | PRG ---
DATE OF SERVICE: 02/02/2019 HISTORY: Ms. Haydee Leroy is a very pleasant 88-year-old, who presents to the Wound Center for evaluation of an ulceration of the right heel. The patient states that she was seen by Dr. Vaughan and at this time, referred to the Wound Center for further evaluation and treatment. The patient has no other complaints today. She denies any fever or chills. Prior to being seen in the Wound Center for the ulceration of the right heel, the patient stated that she had been treating the ulceration with bacitracin. After being seen in the Wound Center, the patient was placed on dressing changes of Medihoney followed by Mepilex Border. The patient has been receiving these dressing changes 3 times per week after cleansing and irrigation with the assistance of home health. PHYSICAL EXAMINATION: VITAL SIGNS: Temperature 98.2, pulse 73, respirations 20, blood pressure 111/57. EXTREMITIES: An ulceration of the right heel is present, which measures approximately 0.4 x 0.5 cm. The dimensions of the wound at the time of the patient's last visit were approximately 0.5 x 0.5 cm. Granulation tissue is present within the wound margins. Necrotic and nonviable tissue present within the wound margins was debrided with an excisional full-thickness debridement with the use of scissors and a curette. No purulent drainage is associated with the wound. No erythema of the skin surrounding the wound is present. No maceration of the skin of the periwound is noted. No significant edema of the right foot or lower leg is present on exam today. ASSESSMENT AND PLAN: 1. Right heel ulceration as described above. Orders will again be transmitted to home health for dressing changes of Medihoney and Mepilex Border 3 times per week after cleansing and irrigation. I will see Ms. Leroy again in 2 weeks. 2. Peripheral vascular disease. 3. Obstructive sleep apnea. 4. History of methicillin-resistant Staphylococcus aureus. Job ID: [id number]
[2019-02-02] MEDS ORDERED: Sodium Chloride 0.9% 15 ML NEB ONE (18:00)
[2019-02-02] MEDS ORDERED: Lidocaine 2% PF 100 mg/5 ml Syringe ONE (18:00)
== END 2019-02-02 14:29 | disposition home or self-care (01) ==
LOC: WCC 14:28
PROVIDERS: ATTEND Family Medicine
DX: L97.419 Non-pressure chronic ulcer of right heel and midfoot with unspecified severity (principal); I73.9 Peripheral vascular disease, unspecified; G47.33 Obstructive sleep apnea (adult) (pediatric); Z86.14 Personal history of Methicillin resistant Staphylococcus aureus infection
CPT/HCPCS: 11042; A4218; J2001

== ENCOUNTER 2019-03-02 14:02 | Outpatient (CLI) | payer MEDICARE ==
[~2019-03-02 14:02] MED LIST changes: +Lidocaine 2% PF 100 mg/5 ml Syringe ONE; -Ondansetron PF 4 MG/2 ML Vial ONE; -PROPOFOL 200 MG/20 ML VIAL ONE; +Sodium Chloride 0.9% 15 ML NEB ONE; -Succinylcholine Chloride 20 MG/ML 10 ml SYRINGE FS ONE
--- NOTE | 2019-03-02 14:09 | PRG ---
DATE OF SERVICE: 03/02/2019 HISTORY: Ms. Haydee Leroy is a very pleasant 88-year-old, who presents to the Wound Center for evaluation of an ulceration of the right heel. The patient previously stated that she was seen by Dr. Vaughan and at this time, referred to the Wound Center for further evaluation and treatment. Prior to being seen in the Wound Center for the ulceration of the right heel, the patient stated that she had been treating the ulceration with bacitracin. After being seen in the Wound Center, the patient was placed on dressing changes of Medihoney followed by Mepilex border. The patient has been receiving these dressing changes 3 times per week after cleansing and irrigation with the assistance of Home Health. PHYSICAL EXAMINATION: VITAL SIGNS: Temperature 98.2, pulse 77, respirations 19, and blood pressure 135/60. EXTREMITIES: An ulceration of the right heel is present, which measures approximately 0.5 x 0.5 cm. The dimensions of the wound at the time of the patient's last visit were approximately 0.4 x 0.5 cm. Granulation tissue is present within the wound margins. Necrotic and nonviable tissue present within the wound margins was debrided with an excisional full-thickness debridement with the use of scissors and a curette. No purulent drainage is associated with the wound. No erythema of the skin surrounding the wound is present. Maceration of the skin of the periwound is noted. No significant edema of the right foot or lower leg is present on exam today. ASSESSMENT AND PLAN: 1. Right heel ulceration as described above. Dressing changes of Medihoney will be discontinued. Dressing changes of Promogran followed by Mepilex border will be initiated today. These dressing changes are to be performed 3 times per week after cleansing and irrigation. I will see Ms. Leroy again in 3 weeks. 2. Peripheral vascular disease. 3. Obstructive sleep apnea. 4. History of methicillin-resistant Staphylococcus aureus. Job ID: [id number]
== END 2019-03-02 14:03 | disposition home or self-care (01) ==
LOC: WCC 14:02
PROVIDERS: ATTEND Family Medicine
DX: L97.419 Non-pressure chronic ulcer of right heel and midfoot with unspecified severity (principal); I73.9 Peripheral vascular disease, unspecified; G47.33 Obstructive sleep apnea (adult) (pediatric); Z86.14 Personal history of Methicillin resistant Staphylococcus aureus infection
CPT/HCPCS: A4218; J2001

== ENCOUNTER 2019-03-23 14:01 | Outpatient (CLI) | payer MEDICARE ==
--- NOTE | 2019-03-23 14:05 | PRG ---
DATE OF SERVICE: 03/23/2019 HISTORY: Ms. Haydee Leroy is a very pleasant 88-year-old, who presents to the Wound Center for evaluation of an ulceration of the right heel. The patient previously stated that she was seen by Dr. Vaughan and at this time, referred to the Wound Center for further evaluation and treatment. Prior to being seen in the wound center for the ulceration of the right heel, the patient stated she had been treating the ulceration with bacitracin. After being seen in the Wound Center, the patient was placed on dressing changes of Medihoney followed by Mepilex border. The patient received these dressing changes 3 times per week after cleansing and irrigation with the assistance of Home Health. At the time of the patient's last visit, dressing changes of Promogran followed by Mepilex border were initiated. PHYSICAL EXAMINATION: VITAL SIGNS: Temperature 97.9, pulse 81, respirations 17, and blood pressure 135/63. EXTREMITIES: An ulceration of the right heel is present, which measures approximately 0.3 x 0.3 cm. The dimensions of the wound at the time of the patient's last visit were approximately 0.5 x 0.5 cm. Granulation tissue is present within the wound margins. Necrotic and nonviable tissue present within the wound margins was debrided with an excisional full-thickness debridement with the use of a curette. No purulent drainage is associated with the wound. No erythema of the skin surrounding the wound is present. No maceration of the skin of the periwound is noted. No significant edema of the right foot or lower leg is present on exam today. ASSESSMENT AND PLAN: 1. Right heel ulceration as described above. Dressing changes of Promogran followed by Mepilex border will be continued 3 times per week after cleansing and irrigation. I will see Ms. Lreoy again in 2 weeks. 2. Peripheral vascular disease. 3. Obstructive sleep apnea. 4. History of methicillin-resistant Staphylococcus aureus. Job ID: [id number]
[2019-03-23] MEDS ORDERED: Lidocaine 2% PF 100 mg/5 ml Syringe ONE (16:53)
[2019-03-23] MEDS ORDERED: Sodium Chloride 0.9% 15 ML NEB ONE (16:53)
== END 2019-03-23 14:02 | disposition home or self-care (01) ==
LOC: WCC 14:01
PROVIDERS: ATTEND Family Medicine
DX: L97.419 Non-pressure chronic ulcer of right heel and midfoot with unspecified severity (principal); I73.9 Peripheral vascular disease, unspecified; G47.33 Obstructive sleep apnea (adult) (pediatric); Z86.14 Personal history of Methicillin resistant Staphylococcus aureus infection
CPT/HCPCS: A4218; J2001

== ENCOUNTER 2019-04-06 13:55 | Outpatient (CLI) | payer MEDICARE ==
--- NOTE | 2019-04-06 14:41 | PRG ---
DATE OF SERVICE: 04/06/2019 HISTORY: Ms. Haydee Leroy is a very pleasant 88-year-old, who presents to the wound center for evaluation of an ulceration of the right heel. The patient previously stated that she was seen by Dr. Vaughan and at this time, referred to the wound center for further evaluation and treatment. Prior to being seen in the wound center for the ulceration of the right heel, the patient stated she had been treating the ulceration with bacitracin. After being seen in the wound center, the patient was placed on dressing changes of Medihoney followed by Mepilex border. The patient received these dressing changes 3 times per week after cleansing and irrigation with the assistance of home health. Subsequently, the patient was placed on dressing changes of Promogran followed by Mepilex border. PHYSICAL EXAMINATION: VITAL SIGNS: Temperature 97.4, pulse 70, respirations 18, and blood pressure 133/60. EXTREMITIES: An ulceration of the right heel is present, which measures approximately 0.4 x 0.3 cm. The dimensions of the wound at the time of the patient's last visit were approximately 0.3 x 0.3 cm. Granulation tissue is present within the wound margins. Necrotic and nonviable tissue present within the wound margins was debrided with an excisional full-thickness debridement with the use of scissors and a curette. No purulent drainage is associated with the wound. No erythema of the skin surrounding the wound is present. No maceration of the skin of the periwound is noted. No significant edema of the right foot or lower leg is present on exam today. ASSESSMENT AND PLAN: 1. Right heel ulceration as described above. Dressing changes of Promogran followed by Mepilex border will be continued 3 times per week after cleansing and irrigation. I have asked the patient to schedule a followup appointment in the wound center for 2 weeks from today. 2. Peripheral vascular disease. 3. Obstructive sleep apnea. 4. History of methicillin-resistant Staphylococcus aureus. Job ID: [id number]
[2019-04-06] MEDS ORDERED: Sodium Chloride 0.9% 15 ML NEB ONE (16:33)
[2019-04-06] MEDS ORDERED: Lidocaine 2% PF 100 mg/5 ml Syringe ONE (16:33)
== END 2019-04-06 13:56 | disposition home or self-care (01) ==
LOC: WCC 13:55
PROVIDERS: ATTEND Family Medicine
DX: L97.419 Non-pressure chronic ulcer of right heel and midfoot with unspecified severity (principal); G47.33 Obstructive sleep apnea (adult) (pediatric); I73.9 Peripheral vascular disease, unspecified; Z86.14 Personal history of Methicillin resistant Staphylococcus aureus infection
CPT/HCPCS: A4218; J2001